=== PATIENT | female | born 1940 | race Caucasian/White ===

== ENCOUNTER → 2017-03-07 | Outpatient (CLI) | payer OTHER ==
[~2017-03-07] MED LIST: ANAS1TAB19 PO; ASPI325T45 PO; CALC500C70 PO; LEVO100T7 PO; LORA-741 PO; MULT-506 PO; OMEP20TA PO
[2017-03-07 13:59] VITALS: BP 165/77; PULSE 77; TEMP 36.9; O2SAT 96
--- NOTE | 2017-03-07 15:17 | Radiation Oncology Follow-Up ---
Radiation Oncology Follow-Up Date of Visit Mar 07, 2017. (La Nena Ramos PA-C) Reason For Visit Annual follow-up (La Nena Ramos PA-C) Radiation Completion Date finished 07-20-2015 (La Nena Ramos PA-C) Diagnosis (1) Breast cancer Status: Resolved Onset Date: 02/03/2015 Stage: lll (A) Permanent Comment: DIAGNOSIS: 1. Left breast, invasive ductal carcinoma, grade 2, ER/NH positive, Her2-elie negative, [id number], stage IIIA Abnormal left breast mammogram Status post biopsy 02/03/2015 revealing invasive ductal carcinoma with lobular features Estrogen receptor positive, progesterone receptor positive, HER-2/elie negative Initial lumpectomy with SLN 03/08/2015 followed by modified radical mastectomy 04/12/2015 Status post completion of radiation therapy to the Left chest wall, supraclavicular area, and axilla completed 07/20/2015 received 5940 cGy 2. Hairy cell leukemia status post chemotherapy Last Edited By: La Nena Ramos on Sep 01, 2015 13:08 (La Nena Ramos PA-C) History of Present Illness Ms. Flynn is a 76-year-old female who presents with previous diagnosis of hairy cell leukemia in remission status post cladribine (Nguyen). She recently presented with an abnormal mammogram completed on 01/19/2015 which showed 2 asymmetries concerning for malignancy which was followed by spot compression which confirmed the abnormality. She did have a repeat diagnostic mammogram on 01/31/2015 which did show focal asymmetry in the left breast so the score was BI-RADS 4 and a biopsy was recommended. She did have a biopsy on 02/03/2015 which revealed invasive ductal carcinoma with lobular features in the tumor was estrogen receptor positive and progesterone receptor positive and HER-2 negative. She did have an MR scan of bilateral breasts on 02/22/2015 which revealed a mass measuring 5.5 cm in the left breast but no lymphadenopathy. She then went on to have a lumpectomy and sentinel lymph node biopsy on 03/08/2015 which revealed invasive ductal carcinoma, 7.5 cm, unifocal, LVSI present, grade 2, positive margin. 2 out of the 3 sentinel lymph nodes were positive for breast carcinoma as well. Due to the positive margins, the patient went on to have a mastectomy and completion axillary lymph node dissection which was completed on 04/12/2015 which revealed residual carcinoma in the left breast as well as 01/09 lymph nodes positive for breast cancer. The patient was seen by Dr. Nguyen and they did have a discussion for consideration of systemic therapy. After their discussion, the patient has elected for anti-hormonal therapy only. We are now seeing the patient in consultation for discussion of post vasectomy radiation therapy. Currently the patient is doing relatively well. Of note she did have her seroma drained by Dr. Plata today in the did remove roughly 70 mL of fluid. Otherwise she has no complaints and is tolerated surgery well. Her energy appetite and weight are stable. She has no other complaints. She will return to our office and underwent conventional radiation therapy. (La Nena Ramos PA-C) Interim History She has noted no changes of the chest wall over this past year. She is found no masses. She has noted no changes of the axilla. She has no swelling of her arm. She has some mild lateral discomfort. She states she occasionally takes an aspirin for the discomfort. She does is approximately once or twice a week. She isn't discomfort a pain level of 3. We reviewed previous mammography for the right breast. Last mammogram was 01/20/2016. She continues on Arimidex and denies side effects. (La Nena Ramos PA-C) Allergies Coded Allergies: No Known Allergies (Unverified , 04/12/15) Home Medications Scheduled Anastrozole (Arimidex), 1 TAB PO DAILY Aspirin (Aspirin), 325 MG PO QAM Calcium/Vitamin D (Os-[place] 500 Plus D), 1 TAB PO BID Levothyroxine Sodium (Levothyroxine Sodium), 1 TAB PO QAM Lorazepam (Ativan), 0.5 MG PO BID Multivitamin (Multivitamin), 1 TAB PO QAM Omeprazole (Omeprazole), 1 TAB PO QAM Review of Systems Gastrointestinal: Symptoms: WNL Oral: Symptoms: No Problems Respiratory: Symptoms: WNL Other Respiratory: occ dry cough Urinary: Symptoms: Nocturia Comments: nocturia times 1 Skin: Symptoms: No Problems Other Skin Symptoms: has dry patches on face, appt with spine specialist Breast: Right Upper Arm Measurement: 28.0 Right Mid Arm Measurement: 22.5 Right Wrist Measurement: 15.0 Left Upper Arm Measurement: 30.4 Left Mid Arm Measurement: 22.0 Left Wrist Measurement: 15.5 Arm Dominence: Right Cosmetic Comments: N/ A (La Nena Ramos PA-C) Physical Exam Vital Signs Date Time Temp Pulse Resp B/P (MAP) Pulse Ox O2 Delivery O2 Flow Rate FiO2 03/07/17 13:59 36.9 77 16 165/77 96 Pain: Pain Onset: last year Pain Duration: comes and goes Side: Left Patient Pain Scale: 0 - 10 Initial Pain Intensity: 3.0 Pain Description: Dull Additional Comments: gets worse at times Fatigue: None General Appearance: no apparent distress Eyes: normal inspection, EOMI ENT: normal ENT inspection, hearing grossly normal Neck: no adenopathy, thyroid normal Respiratory/Chest: lungs clear, no respiratory distress, no accessory muscle use Breast: Breast examination reveals status post mastectomy on the left. There are no masses of the chest wall. There are no areas of tenderness. There is slight telangiectasia. There is no axillary adenopathy. She has no hyperpigmentation. Using the [place] score cosmesis she has a good outcome. Right breast showed no masses or tenderness and no axillary adenopathy Cardiovascular: regular rate, rhythm, no gallop, no murmur Extremities: no pedal edema Neurologic/Psychiatric: no motor/sensory deficits, alert, normal mood/affect Skin: warm/dry (La Nena Ramos PA-C) Assessment & Plan Plan: The patient was also seen and examined by Dr. Larry. The patient was scheduled for yearly screening mammogram of the right breast. He continues on Arimidex. Continue follow-up with medical oncology and her primary care physician. We asked her to return to our office in 1 year. She may call if she has any questions or concerns in the interim. (La Nena Ramos PA-C) I agree with note created by La Nena Ramos PA-C. I reviewed the patient's chart and information with her. I have examined and evaluated the patient. I reviewed relevant clinical information and answered the patient's and/or family' s questions. (Veeral. Larry MD) Total Time In Follow-Up I spent 20 minutes speaking to the patient and performing examination. I spent 15 minutes reviewing information and complaining this note. (La Nena Ramos PA-C) I spent 15 minutes examining and counseling the patient. (Veeral. Laryr MD) Copy To Wu Hawkins D.O.; Enmanuel Nguyen M.D. Problem Qualifiers (1) Breast cancer: Breast location: central portion of breast Estrogen receptor status: positive Patient sex: female Laterality: left Qualified Codes: C50.112 - Malignant neoplasm of central portion of left female breast; Z17.0 - Estrogen receptor positive status [ER+]
== END | disposition home or self-care (01) ==
LOC: C.ONC 12:23
PROVIDERS: ATTEND Physician Assistant Medical
DX: Z08 Encounter for follow-up examination after completed treatment for malignant neoplasm (principal); Z92.3 Personal history of irradiation; Z85.3 Personal history of malignant neoplasm of breast

== ENCOUNTER 2019-05-02 10:50 | Observation (INO) ==
[2019-05-02] MEDS ORDERED: NITROGLYCERIN 2% OINTMENT 30GM TUBE EXT STA (11:12)
[2019-05-02 11:34] LABS: Hematocrit (blood only) 41.9 % (37-47); Hemoglobin 14.4 g/dL (12.0-16.0); Immature Granulocytes % (auto) 1.5 %; Lymphocytes # (auto) 0.75 K/uL (1.2-3.4); Mean Corpuscular Hgb Conc 34.4 g/dL (32-36); Mean Corpuscular Volume 96.3 fL (80-100); Mean Platelet Volume 10.4 fL (7.4-10.4); Monocytes # (auto) 0.45 K/uL (0.11-0.59); Monocytes % (auto) 6.6 %; Neutrophils # (auto) 5.51 K/uL (1.4-6.5); Neutrophils % (auto) 80.9 %; Platelet Count 120 K/uL (130-400); RDW Standard Deviation 45.4 fL (36.4-46.3); Red Blood Count 4.35 M/uL (4.2-5.4); White Blood Count 6.81 K/uL (4.8-10.8)
--- NOTE | 2019-05-02 11:46 | XRay Report ---
SINGLE VIEW CHEST CLINICAL HISTORY: Atypical chest pain. FINDINGS: An AP, portable, upright chest radiograph is compared to study dated 05/01/2019. The examinat ion is degraded by portable technique and patient rotation. The cardiomediastinal silhouette is unr emarkable noting atherosclerotic calcification of the thoracic aorta. The lungs and pleural spaces ar e clear. No pneumothorax is seen. The skeletal structures are osteopenic. The bony thorax is grossly intact. IMPRESSION: No active disease in the chest and no significant change from yesterday. Electronically signed by: Tank Shipman M.D. 05/02/2019 11:44 AM
[2019-05-02 11:51] LABS: BUN Creatinine Ratio 19.8 (10-20); Calcium 9.1 mg/dl (8.5-10.1); Creatinine Clr Calc Pharmacy 40.5 ml/min; Est GFR (African American) 59.7; Est GFR (Non-African American) 51.5; Potassium 3.7 mmol/L (3.5-5.1)
[2019-05-02 11:54] LABS: Bilirubin,Total 0.6 mg/dl (0.2-1); Globulin 3.9 gm/dl (2.5-4.0); Total Protein 7.9 gm/dl (6.4-8.2)
[2019-05-02] MEDS ORDERED: ALUMINUM/MAGNESIUM SUSP 30 ML UDC PO PRN (13:24)
[2019-05-02] MEDS ORDERED: POLYETHYLENE (MIRALAX) 17 GM PACK PO PRN (13:24)
[2019-05-02] MEDS ORDERED: ACETAMINOPHEN 325 MG TAB PO PRN (13:24)
[2019-05-02] MEDS ORDERED: ONDANSETRON INJ 2 MG/ML 2 ML VIAL IV PRN (13:24)
[2019-05-02] MEDS ORDERED: MAGNESIUM HYDROXIDE SUSP 30 ML UDC PO PRN (13:24)
[2019-05-02] MEDS ORDERED: NITROGLYCERIN SL 0.4 MG/TAB TAB SL PRN (13:24)
[2019-05-02 13:54] LABS: Prothrombin Time 10.2 Seconds (9.0-12.0)
--- NOTE | 2019-05-02 14:10 | History & Physical Report ---
Date of Service May 02, 2019 Assessment & Plan (1) Chest pain: (2) CATALAN (dyspnea on exertion): This is an 79-year-old female who has a significant PMH of HTN, hypothyroidism, history of CVA without residual deficit, history of hairy cell leukemia status post 1 cycle cladribine in 2013, thrombocytopenia, history of stage IIIa left breast cancer status post mastectomy and lymph node dissection who presents to [facility] ED secondary to chest pain and dyspnea on exertion times 2 years. 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 if progression of AV sclerosis vs pulm HTN vs wall motion abnormality a1c, lipid panel in am. trend labs HH diet consult cardiology for further assessment (3) HTN (hypertension): Blood pressure stable on amlodipine (4) Hypothyroidism: Continue levothyroxine (5) Breast cancer: Continue Arimidex Status post left mastectomy with lymph node dissection in 2014 (6) History of CVA (cerebrovascular accident): no residual deficit on ASA (7) DVT prophylaxis: SCD/TEDS Disposition: D/C to home when able Follow up: PCP Dr. Hawkins upon discharge Patient was seen and examined in collaboration with Dr. Burns, please see addendum History of Present Illness Chief Complaint: Chest pain x 2 years. Primary Care Provider: Wu Hawkins, This is an 79-year-old female who has a significant PMH of HTN, hypothyroidism, history of CVA without residual deficit, history of hairy cell leukemia status post 1 cycle cladribine in 2013, thrombocytopenia, history of stage IIIa left breast cancer status post mastectomy and lymph node dissection who presents to [facility] ED secondary to chest pain and dyspnea on exertion times 2 years. Patient presented to ED last evening for similar symptoms but opted to discharge home secondary to needing to take care of cat. She complains of left-sided chest pain, nonradiating, rated as 6/10 when present, currently 0/10, described as ache, made worse with exertion, improved with rest. Symptoms can take anywhere from minutes to 2 hours to resolve. She also elicits to having dyspnea on exertion for the past 2 years, "but I still use the stairs in my apartment complex." She denies pain being worse with inspiration, movement. She has not tried anything [id number] for relief. She has history of left breast mastectomy and has had dull aching chest pain since her mastectomy, but feels this may be different. Further she complains of occasional orthopnea, but denies PND, edema or weight gain. She denies any other recent illness, fever, chills, sweats, lightheadedness, dizziness, syncope, palpitations, n/v/d, abdominal pain, change in bowel or urinary habits. Pt lives [facility], takes stairs, has cane but does not use it. Hx of remote smoking 60 years ago, quit after CVA. Denies hx of CAD or [place]. +FH of premature CAD in family. Allergies Allergy/AdvReac Type Severity Reaction Status Date / Time No Known Allergies Allergy Unverified 05/02/19 11:41 Home Medications Home Medications Medication Instructions Recorded Confirmed Type amlodipine 5 mg PO QAM 05/01/19 05/02/19 History anastrozole 1 mg PO QAM 05/01/19 05/02/19 History levothyroxine 100 mcg PO QAM 05/01/19 05/02/19 History multivitamin 1 tab PO QAM 05/01/19 05/02/19 History omeprazole 20 mg PO DAILY PRN 05/01/19 05/02/19 History sertraline 25 mg PO QAM 05/01/19 05/02/19 History aspirin [Aspirin Low Dose] 81 mg PO QAM 05/02/19 05/02/19 History Past Med/Surg History Medical History Thrombocytopenia (Chronic) Hypothyroidism (Chronic) HTN (hypertension) (Chronic) Osteoporosis (Chronic) History of CVA (cerebrovascular accident) (Chronic) Anxiety (Chronic) Breast cancer (Resolved 02/03/15) " DIAGNOSIS: 1. Left breast, invasive ductal carcinoma, grade 2, ER/MD positive, Her2-elie negative, [id number], stage IIIA Abnormal left breast mammogram Status post biopsy 02/03/2015 revealing invasive ductal carcinoma with lobular features Estrogen receptor positive, progesterone receptor positive, HER-2/elie negative Initial lumpectomy with SLN 03/08/2015 followed by modified radical mastectomy 04/12/2015 Status post completion of radiation therapy to the Left chest wall, supraclavicular area, and axilla completed 07/20/2015 received 5940 cGy 2. Hairy cell leukemia status post chemotherapy in 2013 Surgical History History of colonoscopy (Chronic) S/P left mastectomy (Chronic) With axillary lymph node dissection Family History Father Stroke Mother Stroke Brother Myocardial infarction Other Hypertension Social History Preferred Language: Japanese Communication Ability: Effective News Director Required: No Beliefs That Will Affect Care: None Current Living Situation: Alone Current Living Situation Comment: apartment Feels Safe at Home: Yes Safety Concerns: Feels Safe At This Time Smoking Status: Former smoker Do You Dip or Chew Tobacco: No ; Smoking End Date: at ~ age 33 ; Second Hand Exposure: No ; Hx Alcohol Use: No Hx Substance Use: No Review of Systems Review of Systems: As noted per HPI, 10 systems reviewed and negative unless n oted above. Physical Exam Physical Exam: Gen: WD/WN, elderly, F, NAD, sitting up in bed, pleasant, conversing easily Head: Normocephalic, Atraumatic Eyes: Sclera normal, no conjunctival injection, PERRLA, EOMI ENT: Gross hearing intact, normal pharynx, mucous membranes moist Neck: supple, no adenopathy, No JVD, no bruit, Resp: Clear to auscultation b/l, no wheeze, rales, rhonchi. 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 Extremities: No edema bilaterally Skin: warm, moist, no rash, negative turgor, cap refill < 2sec Neuro: Alert and oriented x 3, speech normal, good mood/affect, cran nerve 2-12 intact grossly : deferred Results & Data Vital Signs (Past 12 Hours) Vital Signs Temp Pulse Resp BP Pulse Ox 05/02/19 13:28 81 05/02/19 13:01 72 20 105/59 L 95 05/02/19 12:30 72 20 105/59 L 95 05/02/19 12:00 75 26 H 120/66 95 05/02/19 11:30 77 19 148/95 H 95 05/02/19 11:20 79 27 H 132/56 L 93 05/02/19 11:14 91 H 20 93 05/02/19 10:55 36.9 C 91 H 20 163/85 H 93 Laboratory Results Short CBC 05/02/19 Range/Units 11:15 WBC 6.81 (4.8-10.8) K/uL Hgb 14.4 (12.0-16.0) g/dL Hct 41.9 (37-47) % Plt Count 120 L (130-400) K/uL BMP 05/02/19 11:15 Sodium 144 Potassium 3.7 Chloride 109 H Carbon Dioxide 29 BUN 20 H Creatinine 1.02 Glucose 102 H Calcium 9.1 Liver Function 05/02/19 Range/Units 11:15 Total Bilirubin 0.6 (0.2-1) mg/dl AST 13 L (15-37) U/L ALT 20 (12-78) U/L Alkaline Phosphatase 74 (45-117) U/L Albumin 4.0 (3.4-5.0) gm/dl Diagnostic Findings CXR: IMPRESSION: No active disease in the chest and no significant change from yesterday. Medications Administered Discontinued Medications Nitroglycerin (Nitro-Bid 2%) 1 inch EXT NOW STA Stop: 05/02/19 11:13 Last Admin: 05/02/19 11:26 Dose: 1 inch Documented by: [id number] ECG Rate (beats per minute): 79 Rhythm: normal sinus Findings: + PVC Change: the following changes noted Code Status & VTE Plan Code Status Full Code VTE Prophylaxis Plan VTE Prophylaxis will be ordered: Yes Supervising Physician Co-Signing Physician Notes I have seen and examined the patient and have discussed the case with the provider above. I agree with the assessment and plan as stated. 79 yo F admits to two years of chest pain and CATALAN, but denies ever speaking to a physician r egarding this. She is s/p chemo for breast cancer. She does report walking up and down stairs regularly without issue but can get chest pain and SOB with this "sometimes." The patient reports coming in last night and today because of the "intensity" of the pain, making it different from other times, and a friend encouraged her to come back to the ER this morning. It is apparent she has some memory loss and I'm not sure how much of the story or report here is accurate. For example, she states she hasn't seen her PCP in 5 years, but the record reflects her seeing him in January. She lives alone with her cat. Chest pain resolved with nitro. Workup negative last night and this morning but with reoccurrence of chest pain and new symptoms this morning, she is being observed for ACS rule out here. Trop currently negative and EKG reveals sinus rhythm with no evidence of active ischemia. My exam is consistent with the providers findings above. Doubt stress testing available for her over this weekend, but appreciate Cardiology opinion on risk stratification and plan going home. DO Grant
[2019-05-02 14:57] LABS: Troponin I < 0.015 ng/ml (0-0.045)
[2019-05-02 15:10] LABS: T4 Free Thyroxine 1.81 ng/dl (0.8-1.6)
[2019-05-02] MEDS ORDERED: ENOXAPARIN INJ 30 MG/0.3 ML SYR SQ SCH (16:00)
--- NOTE | 2019-05-02 16:26 | Emergency Department Note ---
Entered by Mireya Maynard acting as a scribe for Álvaro Dia MD History of Present Illness General Chief complaint: Chest Pain Stated complaint: HEART PROBLEMS//DIZZINESS Source: patient Limitations: no limitations History of Present Illness Provider complaint: left-sided chest pain Onset (ago): hour(s) 1 Location: chest and left Pain Consistency: + other (episode ) Maximum Pain Intensity: 5 Quality: + other (pressure ) Exacerbated By: + movement Associated symptoms: + cough, + diaphoresis, + shortness of breath and + other (abdominal pain ) The patient is an 79 year old female who presents to the ED with complaints of an episode of left-sided chest pressure that began 1 hour ago. The patient states she has had occasional chest pain for several months now. She reports that she was seen in the ED yesterday for chest pain and shortness of breath. The patient states that she left against medical advice because she did not want to spend the night in the ED. The patient states that she returned to the ED today because the chest pain frightened her. The patient states that she occasionally gets short of breath and sweaty when she experiences chest pain. The patient states that the chest pain gets worse with exertion, such as walking up steps. The patient states that she occasionally has a cough and abdominal pain but not currently. She reports that she has a history of high blood pressure. The patient reports that she has a history of breast cancer and hairy cell leukemia. She states that she had a mastectomy 5 years ago and received radiation therapy. The patient denies fevers and vomiting. Home Medications Home Medications Medication Instructions Recorded Confirmed Type amlodipine 5 mg PO QAM 05/01/19 05/02/19 History anastrozole 1 mg PO QAM 05/01/19 05/02/19 History levothyroxine 100 mcg PO QAM 05/01/19 05/02/19 History multivitamin 1 tab PO QAM 05/01/19 05/02/19 History omeprazole 20 mg PO DAILY PRN 05/01/19 05/02/19 History sertraline 25 mg PO QAM 05/01/19 05/02/19 History aspirin [Aspirin Low Dose] 81 mg PO QAM 05/02/19 05/02/19 History Allergies Allergy/AdvReac Type Severity Reaction Status Date / Time No Known Allergies Allergy Unverified 05/02/19 11:41 Past Med/Surg History Medical History Thrombocytopenia (Chronic) Hypothyroidism (Chronic) HTN (hypertension) (Chronic) Osteoporosis (Chronic) History of CVA (cerebrovascular accident) (Chronic) Anxiety (Chronic) Breast cancer (Resolved 02/03/15) " DIAGNOSIS: 1. Left breast, invasive ductal carcinoma, grade 2, ER/TX positive, Her2-elie negative, [id number], stage IIIA Abnormal left breast mammogram Status post biopsy 02/03/2015 revealing invasive ductal carcinoma with lobular features Estrogen receptor positive, progesterone receptor positive, HER-2/elie negative Initial lumpectomy with SLN 03/08/2015 followed by modified radical mastectomy 04/12/2015 Status post completion of radiation therapy to the Left chest wall, supraclavicular area, and axilla completed 07/20/2015 received 5940 cGy 2. Hairy cell leukemia status post chemotherapy in 2013 Surgical History History of colonoscopy (Chronic) S/P left mastectomy (Chronic) With axillary lymph node dissection Family History Father Stroke Mother Stroke Brother Myocardial infarction Other Hypertension Social History Preferred Language: Chinese Communication Ability: Effective Collection Advisor Required: No Beliefs That Will Affect Care: None Current Living Situation: Alone Current Living Situation Comment: apartment Feels Safe at Home: Yes Safety Concerns: Feels Safe At This Time Smoking Status: Former smoker Do You Dip or Chew Tobacco: No ; Smoking End Date: at ~ age 33 ; Second Hand Exposure: No ; Hx Alcohol Use: No Hx Substance Use: No Review of Systems See HPI for pertinent positives & negatives. and A total of 10 systems reviewed and were otherwise negative Physical Exam Vital Signs Vital Signs - 24 hr 05/02/19 10:55 05/02/19 11:07 05/02/19 11:14 Temperature 36.9 C Temperature Source Oral Sepsis Recent Fever Within 48 Hours No Sepsis Action Taken by Nursing No Action Required Pulse Rate 91 H 91 H Pulse Rate from SpO2 Sensor Pulse Rhythm Regular Respiratory Rate 20 20 Respiratory Effort / Characteristics Non-Labored Spontaneous Non-Labored Spontaneous Respiratory Depth Normal Normal Blood Pressure 163/85 H Blood Pressure Mean 111 Blood Pressure Position Sitting Pulse Oximetry 93 93 Oxygen Delivery Method Room Air Room Air Room Air 05/02/19 11:20 05/02/19 11:30 05/02/19 12:00 Temperature Temperature Source Sepsis Recent Fever Within 48 Hours Sepsis Action Taken by Nursing Pulse Rate 79 77 75 Pulse Rate from SpO2 Sensor 78 78 74 Pulse Rhythm Respiratory Rate 27 H 19 26 H Respiratory Effort / Characteristics Respiratory Depth Blood Pressure 132/56 L 148/95 H 120/66 Blood Pressure Mean 81 112 84 Blood Pressure Position Pulse Oximetry 93 95 95 Oxygen Delivery Method Room Air Room Air Room Air Constitutional: Vital signs reviewed. Eyes: Pupils are equal round reactive to light. Conjunctiva are noninjected. ENT: Pharynx is clear without erythema or exudate. Mucous membranes are moist. Neck supple without meningeal signs. Respiratory: Clear to auscultation bilaterally. Breath sounds are equal bilaterally. Cardiovascular: Regular rate and rhythm. No rubs or gallops. GI: Soft, nondistended and nontender. Bowel sounds are present. Musculoskeletal: No peripheral edema. No lower extremity tenderness. Left mastectomy. Integumentary: No cyanosis. Neurological: The patient is awake and alert. No focal deficits. Psychiatric: Normal affect. Course 1110: Past medical records reviewed. The patient was evaluated in room C5. A complete history and physical exam was performed. 1150: I discussed the test results with the patient at this time. The patient reports that the chest pain is now resolved. 1156: I paged the [facility] to review the patients case. 1208: I discussed the patients case with Aleida Hernandez PA-C. She informed me that Dr. Burns, [facility], agreed to evaluate the patient for further management. Consultations Consultation #1: I discussed the patients case with Aleida Hernandez PA-C. She informed me that Dr. Burns, [facility], agreed to evaluate the patient for further management. Time: 12:08 Administered Medications Discontinued Medications Nitroglycerin (Nitro-Bid 2%) 1 inch EXT NOW STA Stop: 05/02/19 11:13 Last Admin: 05/02/19 11:26 Dose: 1 inch Documented by: [id number] Medical Decision Making Differential Diagnosis Differential diagnoses include but are not limited to unstable angina, VT, pleurisy, GERD, pneumonia. Medical Records Attestation: I reviewed the patient's medical records. I did perform a limited focused review of portions of the patient's old chart on the electronic medical record. The patient has had no recent pertinent visits to this hospital. Home Medications Current Medication List: was personally reviewed by me Laboratory Data Attestation: I reviewed the patient's lab results. Result diagrams: 05/02/19 11:15 05/02/19 11:15 Lab Results 05/02/19 05/02/19 05/02/19 Range/Units 11:15 11:15 11:15 WBC 6.81 (4.8-10.8) K/uL RBC 4.35 (4.2-5.4) M/uL Hgb 14.4 (12.0-16.0) g/dL Hct 41.9 (37-47) % MCV 96.3 (80-100) fL MCH 33.1 (25-34) pg MCHC 34.4 (32-36) g/dL RDW Std Deviation 45.4 (36.4-46.3) fL RDW Coeff of Lisa 13.0 (11.5-14.5) % Plt Count 120 L (130-400) K/uL MPV 10.4 (7.4-10.4) fL Immature Gran % (Auto) 1.5 % Neut % (Auto) 80.9 % Lymph % (Auto) 11.0 % [place] % (Auto) 6.6 % Eos % (Auto) 0.0 % Baso % (Auto) 0.0 % Immature Gran # (Auto) 0.10 H (0.00-0.02) K/uL Neut # (Auto) 5.51 (1.4-6.5) K/uL Lymph # (Auto) 0.75 L (1.2-3.4) K/uL [place] # (Auto) 0.45 (0.11-0.59) K/uL Eos # (Auto) 0.00 (0-0.5) K/uL Baso # (Auto) 0.00 (0-0.2) K/uL PT (9.0-12.0) Seconds INR (0.9-1.1) Sodium 144 (136-145) mmol/L Potassium 3.7 (3.5-5.1) mmol/L Chloride 109 H (98-107) mmol/L Carbon Dioxide 29 (21-32) mmol/L Anion Gap 6.0 (3-11) BUN 20 H (7-18) mg/dl Creatinine 1.02 (0.6-1.2) mg/dl Est Cr Clr Drug Dosing 40.5 ml/min Est GFR ( Amer) 59.7 Est GFR (Non-Af Amer) 51.5 BUN/Creatinine Ratio 19.8 (10-20) Glucose 102 H (70-99) mg/dl Calcium 9.1 (8.5-10.1) mg/dl Total Bilirubin 0.6 (0.2-1) mg/dl AST 13 L (15-37) U/L ALT 20 (12-78) U/L Alkaline Phosphatase 74 (45-117) U/L POC Troponin I (0-0.045) ng/ml Troponin I < 0.015 (0-0.045) ng/ml Total Protein 7.9 (6.4-8.2) gm/dl Albumin 4.0 (3.4-5.0) gm/dl Globulin 3.9 (2.5-4.0) gm/dl Albumin/Globulin Ratio 1.0 (0.9-2) Lipase 136 (73-393) U/L TSH 0.036 L (0.300-4.500) uIu/ml Free T4 1.81 H (0.8-1.6) ng/dl 05/02/19 05/02/19 Range/Units 11:15 11:30 WBC (4.8-10.8) K/uL RBC (4.2-5.4) M/uL Hgb (12.0-16.0) g/dL Hct (37-47) % MCV (80-100) fL MCH (25-34) pg MCHC (32-36) g/dL RDW Std Deviation (36.4-46.3) fL RDW Coeff of Lisa (11.5-14.5) % Plt Count (130-400) K/uL MPV (7.4-10.4) fL Immature Gran % (Auto) % Neut % (Auto) % Lymph % (Auto) % [place] % (Auto) % Eos % (Auto) % Baso % (Auto) % Immature Gran # (Auto) (0.00-0.02) K/uL Neut # (Auto) (1.4-6.5) K/uL Lymph # (Auto) (1.2-3.4) K/uL [place] # (Auto) (0.11-0.59) K/uL Eos # (Auto) (0-0.5) K/uL Baso # (Auto) (0-0.2) K/uL PT 10.2 (9.0-12.0) Seconds INR 1.0 (0.9-1.1) Sodium (136-145) mmol/L Potassium (3.5-5.1) mmol/L Chloride (98-107) mmol/L Carbon Dioxide (21-32) mmol/L Anion Gap (3-11) BUN (7-18) mg/dl Creatinine (0.6-1.2) mg/dl Est Cr Clr Drug Dosing ml/min Est GFR ( Amer) Est GFR (Non-Af Amer) BUN/Creatinine Ratio (10-20) Glucose (70-99) mg/dl Calcium (8.5-10.1) mg/dl Total Bilirubin (0.2-1) mg/dl AST (15-37) U/L ALT (12-78) U/L Alkaline Phosphatase (45-117) U/L POC Troponin I < 0.03 (0-0.045) ng/ml Troponin I (0-0.045) ng/ml Total Protein (6.4-8.2) gm/dl Albumin (3.4-5.0) gm/dl Globulin (2.5-4.0) gm/dl Albumin/Globulin Ratio (0.9-2) Lipase (73-393) U/L TSH (0.300-4.500) uIu/ml Free T4 (0.8-1.6) ng/dl Imaging Data Radiologist's Impression: Radiology results as stated below per my review and the radiologist's interpretation: SINGLE VIEW CHEST CLINICAL HISTORY: Atypical chest pain. FINDINGS: An AP, portable, upright chest radiograph is compared to study dated 05/01/2019. The examination is degraded by portable technique and patient rotation. The cardiomediastinal silhouette is unremarkable noting atherosclerotic calcification of the thoracic aorta. The lungs and pleural spaces are clear. No pneumothorax is seen. The skeletal structures are osteopenic. The bony thorax is grossly intact. IMPRESSION: No active disease in the chest and no significant change from yesterday. Electronically signed by: Tank Shipman M.D. 05/02/2019 11:44 AM ECG Data Attestation: I personally reviewed and interpreted this ECG as follows: Indication: chest pain Rate (beats per minute): 79 Rhythm: sinus rhythm Findings: + PVC and + ST elevation (slight ST elevation only in lead 2 ) Comparison ECG Date: from (05/01/2019) Change: no significant change Blood Pressure Blood Pressure Findings: Normal blood pressure Blood Pressure Disposition: did not require urgent referral MDM Narrative I did evaluate the patient as noted above. The patient is presenting with exertional chest pain. She was evaluated here yesterday and left AMA. She is back because she is having continued chest pain. IV access was established. The patient was placed on a continuous cardiac cath technician. I did treat her with Nitropaste 1 inch to the anterior chest wall. I did order and personally review the patient's 12-lead EKG as described above. She has slight elevation that V2 but otherwise does not show any ST elevations. No ST depressions are noted. Similar findings are found on EKG yesterday. I did order and personally reviewed the images of the patient's chest x-ray as described above. Chest x- ray is unremarkable. I did order and review the patient's blood work as noted in the electronic medical record. Troponin is negative. Platelet count is 120. She is not anemic. I did reassess the patient. She states her chest pain is now completely resolved. I did discuss the test results with her and recommended hospitalization. I did discuss case with hospitalist and manager of case. Impression & Plan Exertional chest pain, Thrombocytopenia Discharge Plan Visit Data *Final* Discharge Date/Time: 05/02/19 13:01 Chief Complaint: Chest Pain Stated Complaint: HEART PROBLEMS//DIZZINESS ED Provider: Álvaro Dia Discharge Problem: Exertional chest pain, Thrombocytopenia Patient Disposition: Admitted As Inpatient Discharge Instructions Interventions: ED Discharge Assessment Last Done: 05/02/19 13:01 The scribe's documentation has been prepared under my direction and personally reviewed by me in its entirety. I confirm that the note above accurately reflects all work, treatment, procedures, and medical decision making performed by me.
[2019-05-02] MEDS ORDERED: ASPIRIN 325 MG ECTAB PO ONE (18:35)
[2019-05-03 02:25] LABS: Chol HDL Ratio 3; Cholesterol 164 mg/dl (0-200); HDL Cholesterol 52 mg/dl; LDL Cholesterol Calculated 90 mg/dl; Triglycerides 109 mg/dl (0-150); VLDL Cholesterol 22 mg/dl
[2019-05-03] MEDS ORDERED: LEVOTHYROXINE SODIUM 100 MCG TABLET PO SCH (06:30)
[2019-05-03] MEDS ORDERED: SERTRALINE HCL 50 MG TABLET PO SCH (09:00)
[2019-05-03] MEDS ORDERED: MULTIVITAMIN TAB PO SCH (09:00)
[2019-05-03] MEDS ORDERED: ANASTROZOLE 1 MG TAB PO SCH (09:00)
[2019-05-03] MEDS ORDERED: ASPIRIN 81 MG ECTAB PO SCH (09:00)
[2019-05-03] MEDS ORDERED: AMLODIPINE BESYLATE 5 MG TAB PO SCH (09:00)
--- NOTE | 2019-05-03 12:25 | Cardiology Consultation ---
Date of Consultation May 03, 2019 Assessment & Plan (1) Chest pain: (2) History of CVA (cerebrovascular accident): (3) Thrombocytopenia: I would not recommend any additional cardiac testing for this patient. Her echocardiogram was unremarkable without wall motion abnormalities or other significant findings. I believe the patient may be discharged to outpatient follow-up. Her chest x-ray shows no bony lesions would suggest metastatic breast disease. I would treat her chest wall pain with acetaminophen on an as- needed basis and have follow-up with her electronic warfare technical Dr. Edwards. History of Present Illness Attending Physician: Maren Burns DO History of Present Illness This is an 79-year-old female with a history of breast carcinoma stage IIIa with previous mastectomy and hairy cell leukemia with thrombocytopenia. She was admitted with nonexertional chest pain which is actually reproducible by palpation across her chest. After admission her cardiac markers have been negative and her EKG is within normal limits. She has no significant past cardiac history. She is a non-smoker. She has a history of a previous CVA. No prior history of diabetes. Allergies Allergy/AdvReac Type Severity Reaction Status Date / Time No Known Allergies Allergy Unverified 05/02/19 11:41 Home Medications Home Medications Medication Instructions Recorded Confirmed Type amlodipine 5 mg PO QAM 05/01/19 05/02/19 History anastrozole 1 mg PO QAM 05/01/19 05/02/19 History levothyroxine 100 mcg PO QAM 05/01/19 05/02/19 History multivitamin 1 tab PO QAM 05/01/19 05/02/19 History omeprazole 20 mg PO DAILY PRN 05/01/19 05/02/19 History sertraline 25 mg PO QAM 05/01/19 05/02/19 History aspirin [Aspirin Low Dose] 81 mg PO QAM 05/02/19 05/02/19 History Patient History Medical History Thrombocytopenia (Chronic) Hypothyroidism (Chronic) HTN (hypertension) (Chronic) Osteoporosis (Chronic) History of CVA (cerebrovascular accident) (Chronic) Anxiety (Chronic) Breast cancer (Resolved 02/03/15) " DIAGNOSIS: 1. Left breast, invasive ductal carcinoma, grade 2, ER/IA positive, Her2-elie negative, [id number], stage IIIA Abnormal left breast mammogram Status post biopsy 02/03/2015 revealing invasive ductal carcinoma with lobular features Estrogen receptor positive, progesterone receptor positive, HER-2/elie negative Initial lumpectomy with SLN 03/08/2015 followed by modified radical mastectomy 04/12/2015 Status post completion of radiation therapy to the Left chest wall, supraclavicular area, and axilla completed 07/20/2015 received 5940 cGy 2. Hairy cell leukemia status post chemotherapy in 2013 Surgical History History of colonoscopy (Chronic) S/P left mastectomy (Chronic) With axillary lymph node dissection Family History Father Stroke Mother Stroke Brother Myocardial infarction Other Hypertension Social History Preferred Language: Panamanian Communication Ability: Effective Vamp Wetter Required: No Beliefs That Will Affect Care: None Current Living Situation: Alone Current Living Situation Comment: apartment Feels Safe at Home: Yes Safety Concerns: Feels Safe At This Time Smoking Status: Former smoker Do You Dip or Chew Tobacco: No ; Smoking End Date: at ~ age 33 ; Second Hand Exposure: No ; Hx Alcohol Use: No Hx Substance Use: No Review of Systems Review of Systems: All systems reviewed & are unremarkable except as noted in HPI & below Nothing additional Physical Exam Physical Exam: General: no acute distress and stated age Head: normocephalic, no masses, lesions, tenderness or abnormalities Eyes: conjunctiva are pink and non-injected, sclera clear Neck: supple, no adenopathy, no bruits, normal jugular venous pulse, no hepatojugular reflux Chest: Chest pain reproducible with palpation crossed precordium Lungs: clear to auscultation and percussion Cardiac Exam: - regular rate & rhythm, no murmurs gallops or rubs - normal S1, normal S2 Pulses: 2(+) throughout Abdomen: abdomen soft, non-tender, no abnormal masses and no hepatosplenomegaly Musculoskeletal: no gait disturbance, no joint inflammation, no deforming arthritis Extremities: no edema and no cyanosis Neuro: grossly normal exam Results & Data Vital Signs (Past 12 Hours) Vital Signs Temp Pulse Pulse Resp BP Pulse Ox 05/03/19 08:15 77 05/03/19 07:12 37.1 C 85 18 159/76 H 94 05/03/19 03:28 36.6 C 80 18 131/71 92 Laboratory Results Laboratory Results - last 24 hr 05/02/19 05/02/19 05/02/19 11:15 11:15 19:51 PT 10.2 INR 1.0 Estimat Average Glucose Hemoglobin A1c Troponin I < 0.015 < 0.015 Triglycerides Cholesterol LDL Cholesterol, Calc VLDL Cholesterol, Calc HDL Cholesterol Cholesterol/HDL Ratio TSH 0.036 L Free T4 1.81 H 05/03/19 05/03/19 05/03/19 01:53 01:53 01:53 PT INR Estimat Average Glucose Pending Hemoglobin A1c Pending Troponin I < 0.015 Triglycerides 109 Cholesterol 164 LDL Cholesterol, Calc 90 VLDL Cholesterol, Calc 22 HDL Cholesterol 52 Cholesterol/HDL Ratio 3 TSH Free T4 Medications Administered Current Inpatient Medications Acetaminophen (Tylenol) 650 mg PO Q4H PRN PRN Reason: Pain or Fever Stop: 06/01/19 13:23 Al Hydrox/Mg Hydrox/Simethicone (Maalox) 15 ml PO Q4H PRN PRN Reason: Dyspepsia Stop: 06/01/19 13:23 Amlodipine Besylate (Norvasc) 5 mg PO [facility] Stop: 06/02/19 08:59 Last Admin: 05/03/19 08:25 Dose: 5 mg Documented by: [facility] ([facility]) [facility] [place] [place]: 06/02/19 08:59 Last Admin: 05/03/19 08:25 Dose: 1 mg Documented by: Aspirin (Ecotrin Ectab) [facility] [place] [place]: 06/02/19 08:59 Last Admin: 05/03/19 08:25 Dose: 81 mg Documented by: Enoxaparin Sodium (Lovenox) 30 mg SQ Q24H [facility] Stop: 06/01/19 15:59 Last Admin: 05/02/19 17:48 Dose: 30 mg Documented by: Levothyroxine Sodium (Synthroid) [facility] Stop: 06/02/19 06:29 Last Admin: 05/03/19 05:01 Dose: 100 mcg Documented by: Magnesium Hydroxide (Milk Of Magnesia) 30 ml PO Q12H PRN PRN Reason: Constipation Stop: 06/01/19 13:23 Multivitamins (Multivitamin Tab) 1 tab PO QAM [facility] Stop: 06/02/19 08:59 Last Admin: 05/03/19 08:25 Dose: 1 tab Documented by: Nitroglycerin (Nitrostat) 0.4 mg SL UD PRN PRN Reason: Chest Pain Stop: 06/01/19 13:23 Ondansetron HCl (Zofran) 4 mg IV Q6H PRN PRN Reason: Nausea Stop: 06/01/19 13:23 Polyethylene Glycol (Miralax Powder Packet) 17 gm PO DAILY PRN PRN Reason: Constipation Stop: 06/01/19 13:23 Sertraline HCl (Zoloft) 25 mg PO QAM [facility] Stop: 06/02/19 08:59 Last Admin: 05/03/19 08:25 Dose: 25 mg Documented by:
[2019-05-03 12:53] VITALS: BP 159/94; TEMP 99; O2SAT 91
--- NOTE | 2019-05-03 13:28 | Discharge Summary ---
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 Patient presented to ED last evening for similar symptoms but opted to discharge home secondary to needing to take care of cat. She complains of left-sided chest pain, nonradiating, rated as 6/10 when present, currently 0/10, described as ache, made worse with exertion, improved with rest. Symptoms can take anywhere from minutes to 2 hours to resolve. She also elicits to having dyspnea on exertion for the past 2 years, "but I still use the stairs in my apartment complex." She denies pain being worse with inspiration, movement. She has not tried anything [id number] for relief. She has history of left breast mastectomy and has had dull aching chest pain since her mastectomy, but feels this may be different. Further she complains of occasional orthopnea, but denies PND, edema or weight gain. She denies any other recent illness, fever, chills, sweats, lightheadedness, dizziness, syncope, palpitations, n/v/d, abdominal pain, change in bowel or urinary habits. Pt lives in [facility], takes stairs, has cane but does not use it. Hx of remote smoking 60 years ago, quit after CVA. Denies hx of CAD or DE. +FH of premature CAD in family. Admission Exam Per Admitting Provider Gen: WD/WN, elderly, F, NAD, sitting up in bed, pleasant, conversing easily Head: Normocephalic, Atraumatic Eyes: Sclera normal, no conjunctival injection, PERRLA, EOMI ENT: Gross hearing intact, normal pharynx, mucous membranes moist Neck: supple, no adenopathy, No JVD, no bruit, Resp: Clear to auscultation b/l, no wheeze, rales, rhonchi. 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 Extremities: No edema bilaterally Skin: warm, moist, no rash, negative turgor, cap refill < 2sec Neuro: Alert and oriented x 3, speech normal, good mood/affect, cran nerve 2-12 intact grossly : deferred Principal Diagnosis Intercostal pain Discharge Data Allergies Allergy/AdvReac Type Severity Reaction Status Date / Time No Known Allergies Allergy Unverified 05/02/19 11:41 Consultations 05/02/19 12:12 ED Decision to Admit Stat 05/02/19 14:12 Consult Cardiology Routine Hospital Course (1) Intercostal pain: (2) CATALAN (dyspnea on exertion): (3) HTN (hypertension): (4) Hypothyroidism: (5) Breast cancer: (6) History of CVA (cerebrovascular accident): 79-year-old female with a history of CVA presented with chest pain for the second time in 24 hours. She was previously seen in the ER the night prior with negative work-up for ischemia, and decided to go home to take care of her animals. She returned the following morning at the prompting of her friend when her chest pain returned. She states she has chest pain intermittently for the past two years associated with dyspnea on exertion, but she states she has not told her doctor about this. She reported that the pain was more intense which was the reason for presentation. EKG remained unchanged with no ST segment elevation or depression. Nitropaste was administered with resolution of chest pain. She was admitted to the Hospitalist service on telemetry and serial troponin enzymes were trended and negative overnight. An echocardiogram was obtained and Cardiology was consulted. She remained chest pain-free overnight and there were no events on telemetry. Cardiology recommended against additional cardiac testing for this patient. Her echocardiogram was unremarkable without wall motion abnormalities or other significant findings. Her chest x-ray revealed no bony lesions that would suggest metastatic breast disease. Her chest wall pain, which was reproducible on palpation, was treated with acetaminophen and she was discharged in stable condition. At time of discharge she was asymptomatic. A [id number] examination was performed revealing an hemodynamically stable and afebrile patient in no acute distress. Cardiac exam revealed an S1/S2 heard without evidence of murmur, gallops, rubs. Lungs were clear to auscultation. Abdomen was soft nontender. She was ambulating and mentating at baseline and was tolerating p.o. She was discharged with close primary care follow-up recommended. Of note a TSH was performed while she was admitted and was found to be low. She is noted to be on Synthroid and was recommended to follow-up with her primary care doctor regarding this. Total Time Total Time Spent Total Time Spent (In Minutes): 60 Total Time Includes: Examination of the Patient, Discharge Planning, Medication Reconciliation and Communication With Other Providers Discharge Plan Discharge Items Patient Disposition: Home - Self-Care Reason For Visit: chest pain Discharge Diagnosis: atypical chest pain Condition: Good Discharge Goals: Improve disease control Activity: Resume your previous activity Non-emergency contact: Primary Care Provider Call non-emergency contact if: you have any medication questions, your symptoms worsen, your pain is not controlled and you have a fever Follow-up/Referrals: Wu Hawkins, [Primary Care Provider] - Diet: Heart Healthy Addtl Provider Instructions: Please take all medications as instructed on discharge list below. It is recommended that you follow-up with your primary care physician (PCP) within one week of discharge from the hospital to ensure your chest pain is controlled. There are no further cardiac tests that are indicated after the echocardiogram was normal here in the hospital. However, you may still have pain from another cause, and your PCP will help you with this moving forward. For now, it is recommended that you take the Tylenol as prescribed until you follow-up within 1-2 weeks. Additionally, your Synthroid looks like it might be dosed too high. This will need to be checked by your PCP on follow-up. It was a pleasure taking care of you! Please call if you have any questions or problems. You can reach a [facility] hospitalist on duty at 24 hours a day by calling [phone]. Take care of yourself. Maren Burns DO [facility] Hospitalist Prescriptions: New acetaminophen [Mapap (acetaminophen)] 325 mg Tablet 650 mg PO TID Qty: 90 RF: 0 Continued multivitamin Tablet 1 tab PO QAM RF: 0 anastrozole 1 mg tablet 1 mg PO QAM RF: 0 amlodipine 5 mg tablet 5 mg PO QAM RF: 0 levothyroxine 100 mcg tablet 100 mcg PO QAM RF: 0 sertraline 25 mg tablet 25 mg PO QAM RF: 0 omeprazole 20 mg Tablet,Delayed Release (Dr/Ec) 20 mg PO DAILY PRN (Reason: Heartburn) RF: 0 aspirin [Aspirin Low Dose] 81 mg Tablet,Delayed Release (Dr/Ec) 81 mg PO QAM RF: 0 Stand-Alone Forms: [facility] Discharge Orders: Discharge Order (Routine); Ordered 05/03/19 Ordered By: Maren Burns Admission Data Admit Date/Time: 05/02/19 12:25 Attending Provider: Maren Burns Admit Provider: Maren Burns Primary Care Provider: Wu Hawkins Other Providers: Amaury Mckinney ; Maren Burns Service: Telemetry Medical Other Interventions: Discharge Summary Assessment (RN) Last Done: 05/03/19 13:29 DC Date/Time DO NOT enter until pt leaves facility: 05/03/19 13:47
[2019-05-03 13:30] VITALS: PULSE 86
[2019-05-04 06:37] LABS: Estimated Average Glucose 105 mg/dl; Hemoglobin A1C 5.3 % (4.5-5.6)
== END 2019-05-03 13:47 | disposition home or self-care (01) ==
LOC: 2N 10:50 → ED 10:50 → 2N 13:01

== ENCOUNTER 2019-11-13 17:38 | Observation (INO) ==
--- NOTE | 2019-11-13 18:13 | Emergency Department Note ---
ED Provider Note NAME: JULIA MORA AGE: 79 SEX: F ARRIVES VIA: Ambulance INFORMANT: Patient ED PROVIDER(S): Irving Russ MD CHIEF COMPLAINT: Fall IMPRESSION: Closed head injury Elevated troponin Facial contusion AMS Fall PLAN: Disposition: Admitted Condition: [Good] Outpatient prescription management: [none] Referral: none MEDICAL DECISION MAKING: The patient presented to the emergency department due to a fall and confusion. She had CT imaging that was performed that did not reveal any acute process. R adiology recommended follow-up CT imaging. Her blood work and urinalysis was unremarkable except for mild elevation of total CK. The patient was hydrated. She was reassessed. She was doing well. The exact etiology of her fall and head injury is not known as she cannot remember and this was unwitnessed. She does have significant chronic changes on her brain imaging. Concussion or a unwitnessed seizure is a possibility. Further management will be necessary in the hospital. A consultation was made with internal medicine. [facility]. Triage Nursing notes reviewed and agree them. Additional history obtained from EMS Prior medical records reviewed , hx of CVA and Breast CA Vital Signs: reviewed and remarkable for no significant abnormalities, moderate hypertension Differential diagnosis: Infection, hypoglycemia, electrolyte abnormalities, overdose, toxicologic, cardiac sources, intracerebral event, neurologic, trauma, as well as other pathologies. ER treatment provided: NSS bolus and hydration Diagnostics interpreted by me: ECG: Rate:86 Rhythm:Sinus [place]:normal QRS:normal ST segements:no elevation or depression Other:PVCs Cardiac Monitoring: The patient was placed on continuous cardiac monitoring and observed. It revealed a normal sinus rhythm at 94 bpm, no evidence of dysr hythmia. Laboratory studies: [See below] an unremarkable CBC and chemistry panel. The patient does have a mild elevated troponin. The patient's urinalysis is unremarkable. Imaging studies: CT imaging of the head, neck and thoracic spine did not reveal any acute traumatic findings. Radiology recommended follow-up CT and MR imaging for the long and thoracic findings. This was relayed to internal medicine. Consultation(s): Consultation was made with of the [facility] service. The case was discussed and diagnostics were reviewed. He evaluated the patient in the emergency permit for additional treatment. HPI: 79 y/o Female arrives for evaluation of a fall. She was not seen for some time and neighbors went to check on her. She was found to be bleeding from the head and confused. Was oriented to person and place only. She does not remember falling. Denies recent illness. Lives alone. No medication given prehospital. Pt denies LOC, headache, fevers, chills, diaphoresis, visual changes, neck pain, chest pain, breathing difficulties, nausea, vomiting, abdo fernanda pain, back pain, melena, hematochezia, urinary symptoms, numbness, weakness, lymphadenopathy, rash, or other complaints. ROS: See above HPI for pertinent positives & negatives. A total of 10 systems reviewed and were otherwise negative. PAST MEDICAL HISTORY:CVA, Breast CA PAST SURGICAL HISTORY:mastectomy FAMILY HISTORY:[See Below] SOCIAL HISTORY:Lives alone HOME MEDICATIONS:[See Below] ALLERGIES:[See Below] VITALS:[See Below] PHYSICAL EXAMINATION: GENERAL: Awake, alert, mildly confused appearing, in no distress HENT: Normocephalic, large right forehead hematoma. Oropharynx unremarkable. EYES: Normal conjunctiva. Sclera non-icteric. NECK: Inspection normal. Non-tender. Supple. No nuchal rigidity. FROM. No masses. RESPIRATORY: Clear to auscultation. No wheezes. No rales. Normal respiratory effort. CARDIAC: Normal rate. Normal rhythm. No murmurs. No rubs. Extremities warm and well perfused. Pulses equal. No JVD. GI: Soft, non-distended. No tenderness to palpation. No rebound or guarding. No masses. RECTAL: Deferred. MUSCULOSKELETAL: Scattered contusions noted of the bilateral upper extremities. Chest examination reveals no tenderness. The back is symmetrical on inspection without obvious abnormality. There is mild upper midline thoracic tenderness. There is no CVA tenderness to palpation. No joint edema. LOWER EXTREMITIES: Calves are equal size bilaterally and non-tender. No edema. No discoloration. NEURO: Normal sensorium. No sensory or motor deficits noted. SKIN: No rash or jaundice noted. ED COURSE: Procedures: [none] [Critical Care:] I have personally spent greater than 32 minutes of critical care time in the direct management of this patient. This includes bedside care, interpretation of diagnostic studies, and testing, discussion with consultants, patient, and other required patient management activities. This 32 minutes is in excess of all separately billable procedures. Impression & Plan CHI (closed head injury), Elevated troponin I level, Fall, Altered mental status Past Med/Surg History Social History Preferred Language: Lebanese Communication Ability: Effective Computer Security Specialist Required: No Beliefs That Will Affect Care: None Current Living Situation: Alone Current Living Situation Comment: apartment Feels Safe at Home: Yes Smoking Status: Never smoker Second Hand Exposure: No ; Hx Alcohol Use: No Hx Substance Use: No Results & Data Vital Signs Vital Signs - 24 hr 11/13/19 17:46 11/13/19 17:51 11/13/19 18:09 Temperature 37.2 C Temperature Source Oral Pulse Rate 88 94 H 87 Pulse Rate [Apical] Pulse Rate from SpO2 Sensor 88 87 Respiratory Rate 21 18 23 Blood Pressure 178/67 H 178/67 H Blood Pressure [Right Arm] Blood Pressure Mean 125 104 Blood Pressure Mean [Right Arm] Pulse Oximetry 96 95 95 Oxygen Delivery Method Room Air Sepsis Recent Fever Within 48 Hours Yes Sepsis New/Unexplained Change in Mental Status No Sepsis Action Taken by Nursing No Action Required 11/13/19 18:10 11/13/19 18:20 11/13/19 18:26 Temperature Temperature Source Pulse Rate 87 82 90 Pulse Rate [Apical] Pulse Rate from SpO2 Sensor 87 Respiratory Rate 21 20 14 Blood Pressure 146/107 H Blood Pressure [Right Arm] Blood Pressure Mean 126 Blood Pressure Mean [Right Arm] Pulse Oximetry 96 Oxygen Delivery Method Sepsis Recent Fever Within 48 Hours Sepsis New/Unexplained Change in Mental Status Sepsis Action Taken by Nursing 11/13/19 18:29 11/13/19 18:30 11/13/19 18:40 Temperature Temperature Source Pulse Rate 83 83 Pulse Rate [Apical] 87 Pulse Rate from SpO2 Sensor Respiratory Rate 20 19 20 Blood Pressure Blood Pressure [Right Arm] 146/97 H Blood Pressure Mean Blood Pressure Mean [Right Arm] 113 Pulse Oximetry 95 Oxygen Delivery Method Room Air Sepsis Recent Fever Within 48 Hours Sepsis New/Unexplained Change in Mental Status Sepsis Action Taken by Nursing 11/13/19 19:00 11/13/19 19:01 11/13/19 19:10 Temperature Temperature Source Pulse Rate 83 80 Pulse Rate [Apical] Pulse Rate from SpO2 Sensor 81 Respiratory Rate 16 21 Blood Pressure 173/73 H Blood Pressure [Right Arm] Blood Pressure Mean 101 Blood Pressure Mean [Right Arm] Pulse Oximetry 96 Oxygen Delivery Method Sepsis Recent Fever Within 48 Hours Sepsis New/Unexplained Change in Mental Status Sepsis Action Taken by Nursing 11/13/19 19:20 11/13/19 20:01 Temperature Temperature Source Pulse Rate 82 Pulse Rate [Apical] 92 H Pulse Rate from SpO2 Sensor 82 Respiratory Rate 18 Blood Pressure Blood Pressure [Right Arm] 155/97 H Blood Pressure Mean Blood Pressure Mean [Right Arm] 116 Pulse Oximetry 96 Oxygen Delivery Method Room Air Sepsis Recent Fever Within 48 Hours Sepsis New/Unexplained Change in Mental Status Sepsis Action Taken by Nursing Laboratory Data Result diagrams: 11/13/19 17:30 11/13/19 17:30 Lab Results 11/13/19 11/13/19 11/13/19 Range/Units 17:30 17:30 18:26 WBC 6.66 (4.8-10.8) K/uL RBC 4.68 (4.2-5.4) M/uL Hgb 15.6 (12.0-16.0) g/dL Hct 45.1 (37-47) % MCV 96.4 (80-100) fL MCH 33.3 (25-34) pg MCHC 34.6 (32-36) g/dL RDW Std Deviation 47.5 H (36.4-46.3) fL RDW Coeff of Lisa 13.7 (11.5-14.5) % Plt Count 178 (130-400) K/uL MPV 10.3 (7.4-10.4) fL Immature Gran % (Auto) 3.5 % Neut % (Auto) 72.1 % Lymph % (Auto) 16.1 % [place] % (Auto) 8.1 % Eos % (Auto) 0.2 % Baso % (Auto) 0.0 % Immature Gran # (Auto) 0.23 H (0.00-0.02) K/uL Neut # (Auto) 4.81 (1.4-6.5) K/uL Lymph # (Auto) 1.07 L (1.2-3.4) K/uL [place] # (Auto) 0.54 (0.11-0.59) K/uL Eos # (Auto) 0.01 (0-0.5) K/uL Baso # (Auto) 0.00 (0-0.2) K/uL Sodium 139 (136-145) mmol/L Potassium 3.5 (3.5-5.1) mmol/L Chloride 106 (98-107) mmol/L Carbon Dioxide 25 (21-32) mmol/L Anion Gap 8.0 (3-11) BUN 17 (7-18) mg/dl Creatinine 1.06 (0.6-1.2) mg/dl Est Cr Clr Drug Dosing 39.0 ml/min Est GFR ( Amer) 57.0 Est GFR (Non-Af Amer) 49.2 BUN/Creatinine Ratio 16.1 (10-20) Glucose 136 H (70-99) mg/dl Calcium 9.6 (8.5-10.1) mg/dl Magnesium 2.1 (1.8-2.4) mg/dl Total Bilirubin 0.9 (0.2-1) mg/dl AST 28 (15-37) U/L ALT 22 (12-78) U/L Alkaline Phosphatase 109 (45-117) U/L Total Creatine Kinase 384 H (26-192) U/L Total Protein 9.0 H (6.4-8.2) gm/dl Albumin 4.1 (3.4-5.0) gm/dl Globulin 4.9 H (2.5-4.0) gm/dl Albumin/Globulin Ratio 0.8 L (0.9-2) Urine Color Yellow Urine Appearance Clear (Clear) Urine pH 6.5 (4.5-7.5) Ur Specific [place] 1.011 (1.000-1.030) Urine Protein Negative (Negative) Urine Glucose (UA) Negative (Negative) Urine Ketones 1+ H (Negative) Urine Blood Trace H (Negative) Urine Nitrite Negative (Negative) Urine Bilirubin Negative (Negative) Urine Urobilinogen Negative (Negative) Ur Leukocyte Esterase Negative (Negative) Urine WBC (Auto) 1-5 (0-5) /hpf Urine RBC (Auto) 0-4 (0-4) /hpf U Hyaline Cast (Auto) 0 (0-5) /lpf U Epithel Cells (Auto) 10-20 H (0-5) /lpf Urine Bacteria (Auto) Negative (Negative) Administered Medications Sodium Chloride (Nss 1000ml) 1,000 mls @ 125 mls/hr IV .Q8H ANGELIQUE Stop: 11/14/19 02:14 Last Admin: 02/21/20 18:35 Dose: 125 mls/hr Documented by: [id number] Discontinued Medications Sodium Chloride (Nss) 500 mls @ 999 mls/hr IV .Q31M ANGELIQUE Stop: 11/13/19 18:45 Last Infusion: 11/13/19 20:04 Dose: 0 mls/hr Documented by: [id number] Admin: 11/13/19 18:35 Dose: 999 mls/hr Documented by: [id number] Discharge Plan Visit Data Chief Complaint: Fall Stated Complaint: FALL, AMS, ED Provider: Irving Russ Discharge Problem: CHI (closed head injury), Elevated troponin I level, Fall, Altered mental status Forms Stand Alone Forms: [employer] Prescriptions Prescriptions: No Action levothyroxine 75 mcg tablet 75 mcg PO QAM RF: 0 baclofen 10 mg tablet 10 mg PO BID PRN (Reason: Spasms) RF: 0 acetaminophen [Acetaminophen Extra Strength] 500 mg Tablet 1,000 mg PO TID PRN (Reason: Pain) RF: 0 multivitamin Tablet 1 tab PO QAM RF: 0 anastrozole 1 mg tablet 1 mg PO QAM RF: 0 amlodipine 5 mg tablet 5 mg PO QAM RF: 0 omeprazole 20 mg Tablet,Delayed Release (Dr/Ec) 20 mg PO QAM RF: 0 aspirin [Aspirin Low Dose] 81 mg Tablet,Delayed Release (Dr/Ec) 81 mg PO QAM RF: 0 Referrals Referrals: Wu Hawkins DO [Primary Care Provider] -
[2019-11-13] MEDS ORDERED: SODIUM CHLORIDE 0.9% 1000ML 1,000 ML IV SCH (18:15)
[2019-11-13] MEDS ORDERED: SODIUM CHLORIDE 0.9% 500 ML IV SCH (18:15)
[2019-11-13 18:17] LABS: Eosinophils # (auto) 0.01 K/uL (0-0.5); Eosinophils % (auto) 0.2 %; Hematocrit (blood only) 45.1 % (37-47); Hemoglobin 15.6 g/dL (12.0-16.0); Immature Granulocytes # (auto) 0.23 K/uL (0.00-0.02); Immature Granulocytes % (auto) 3.5 %; Lymphocytes # (auto) 1.07 K/uL (1.2-3.4); Lymphocytes % (auto) 16.1 %; Mean Corpuscular Hemoglobin 33.3 pg (25-34); Mean Corpuscular Hgb Conc 34.6 g/dL (32-36); Mean Corpuscular Volume 96.4 fL (80-100); Mean Platelet Volume 10.3 fL (7.4-10.4); Monocytes # (auto) 0.54 K/uL (0.11-0.59); Monocytes % (auto) 8.1 %; Neutrophils # (auto) 4.81 K/uL (1.4-6.5); Neutrophils % (auto) 72.1 %; Platelet Count 178 K/uL (130-400); RDW Coefficient of Variation 13.7 % (11.5-14.5); RDW Standard Deviation 47.5 fL (36.4-46.3); Red Blood Count 4.68 M/uL (4.2-5.4); White Blood Count 6.66 K/uL (4.8-10.8)
[2019-11-13 18:20] LABS: Albumin Level 4.1 gm/dl (3.4-5.0); BUN Creatinine Ratio 16.1 (10-20); Calcium 9.6 mg/dl (8.5-10.1); Est GFR (Non-African American) 49.2; Potassium 3.5 mmol/L (3.5-5.1)
--- NOTE | 2019-11-13 18:28 | Emergency Department Note ---
Entered by Caroline Boles acting as a scribe for Irving Russ MD ED Provider Note CHIEF COMPLAINT: [] HISTORY OF PRESENT ILLNESS: The patient is a [] year old [] who presents to the Emergency Room with complaints of [] Pt denies LOC, headache, fevers, chills, diaphoresis, visual changes, neck pain, chest pain, breathing difficulties, nausea, vomiting, abdominal pain, back pain, melena, hematochezia, urinary symptoms, numbness, weakness, lymphadenopathy, rash, or other complaints. REVIEW OF SYSTEMS: See HPI for pertinent positives and negatives. A total of ten systems were reviewed and were otherwise negative. PMHx/PSHx: [] SOCIAL HISTORY: Patient lives at home. PHYSICAL EXAM: GENERAL: Awake, alert, well-appearing, in no distress HENT: Normocephalic, atraumatic. Oropharynx unremarkable. EYES: PERRL. Normal conjunctiva. Sclera non-icteric. NECK: Inspection normal. Non-tender. Supple. No nuchal rigidity. FROM. No masses. RESPIRATORY: Clear to auscultation. No wheezes. No rales. Normal respiratory effort. CARDIAC: Normal rate. Normal rhythm. No murmurs. No rubs. Extremities warm and well perfused. Pulses equal. No JVD. GI: Soft, non-distended. No tenderness to palpation. No rebound or guarding. No masses. RECTAL: Deferred. MUSCULOSKELETAL: Atraumatic. Chest examination reveals no tenderness. The back is symmetrical on inspection without obvious abnormality. There is no CVA t enderness to palpation. No joint edema. LOWER EXTREMITIES: Calves are equal size bilaterally and non-tender. No edema. No discoloration. NEURO: Normal sensorium. No sensory or motor deficits noted. SKIN: No rash or jaundice noted. EMERGENCY DEPARTMENT COURSE: []: Past medical records reviewed. The patient was evaluated in room [], and a complete history and physical examination were performed. MEDICAL DECISION MAKING: [] IMPRESSION: [] PLAN: [] The scribe's documentation has been prepared under my direction and personally reviewed by me in its entirety. I confirm that the note above accurately reflects all work, treatment, procedures, and medical decision making performed by me. Past Med/Surg History Social History (Reviewed 05/03/19 @ 12:26 by MAGDY Bailey Preferred Language: Hungarian Communication Ability: Effective Broadcaster Required: No Beliefs That Will Affect Care: None Current Living Situation: Alone Current Living Situation Comment: apartment Feels Safe at Home: Yes Smoking Status: Never smoker Second Hand Exposure: No ; Hx Alcohol Use: No Hx Substance Use: No Results & Data Vital Signs Vital Signs - 24 hr 11/13/19 17:51 Temperature 37.2 C Temperature Source Oral Pulse Rate 94 H Respiratory Rate 18 Blood Pressure 178/67 H Blood Pressure Mean 104 Pulse Oximetry 95 Oxygen Delivery Method Room Air Sepsis Recent Fever Within 48 Hours Yes Sepsis New/Unexplained Change in Mental Status No Sepsis Action Taken by Nursing No Action Required Laboratory Data Result diagrams: 11/13/19 17:30 11/13/19 17:30 Discharge Plan Visit Data Chief Complaint: Fall Stated Complaint: FALL, AMS, ED Provider: Irving Russ Prescriptions Prescriptions: No Action multivitamin Tablet 1 tab PO QAM RF: 0 anastrozole 1 mg tablet 1 mg PO QAM RF: 0 amlodipine 5 mg tablet 5 mg PO QAM RF: 0 levothyroxine 100 mcg tablet 100 mcg PO QAM RF: 0 sertraline 25 mg tablet 25 mg PO QAM RF: 0 omeprazole 20 mg Tablet,Delayed Release (Dr/Ec) 20 mg PO DAILY PRN (Reason: Heartburn) RF: 0 aspirin [Aspirin Low Dose] 81 mg Tablet,Delayed Release (Dr/Ec) 81 mg PO QAM RF: 0 acetaminophen [Mapap (acetaminophen)] 325 mg Tablet 650 mg PO TID Qty: 90 RF: 0
[2019-11-13 18:29] LABS: Albumin Globulin Ratio 0.8 (0.9-2); Bilirubin,Total 0.9 mg/dl (0.2-1); Globulin 4.9 gm/dl (2.5-4.0); Magnesium 2.1 mg/dl (1.8-2.4)
[2019-11-13 18:38] LABS: Appearance Urine Clear (Clear); Bacteria Urine Automated Negative (Negative); Bilirubin Urine Negative (Negative); Blood Urine Trace (Negative); Cast Urine Automated 0 /lpf (0-5); Color Urine Yellow; Glucose Urine UA Negative (Negative); Ketones Urine 1+ (Negative); Leukocyte Esterase Urine Negative (Negative); Nitrite Urine Negative (Negative); Protein Urine Negative (Negative); RBC Urine Automated 0-4 /hpf (0-4); Specific Gravity Urine 1.011 (1.000-1.030); Urobilinogen Urine Negative (Negative); pH Urine 6.5 (4.5-7.5)
--- NOTE | 2019-11-13 18:41 | XRay Report ---
XR chest 1V portable HISTORY: 79 years-old Female weakness acute weakness COMPARISON: Chest radiograph 05/02/2019 TECHNIQUE: Portable AP view of the chest FINDINGS: Cardiomediastinal and hilar silhouettes are within normal limits. Calcific plaque of the thoracic aor tic arch. Mitral annular calcifications also noted. Lungs are mildly hyperinflated. No pneumothorax, pleural effusion, focal airspace consolidation or overt pulmonary edema. Bones of the chest appear gr ossly intact. IMPRESSION: No acute process. ACT 112: Negative or not required by law. The above report was generated using voice recognition software. It may contain grammatical, syntax o r spelling errors. Electronically signed by: Raji Jorge M.D. 11/13/2019 6:40 PM
--- NOTE | 2019-11-13 19:14 | CT Scan Report ---
CT head/brain wo con CLINICAL HISTORY: 79 years-old Female with fall. Acute head and neck injury status post fall TECHNIQUE: Multiple axial CT images of the head were obtained without contrast. A dose lowering tech nique was utilized adhering to the principles of ALARA. COMPARISON: CT cervical spine of same day FINDINGS: No acute intracranial hemorrhage, midline shift, intracranial mass, hydrocephalus, acute territorial ischemia or abnormal extra-axial collection. Age-related involutional changes with mild ex vacuo vent ricular likely. Patchy white matter hypodensities suggest chronic microvascular ischemic disease. Cer ebral vascular calcifications are noted. Large area of encephalomalacia involves the right MCA territ ory predominantly involving the right frontal and temporal lobes. Smaller area of encephalomalacia in volves the left occipital lobe. The calvarium is intact. The paranasal sinuses, mastoid air cells, and middle ear cavities are clear . IMPRESSION: 1. No acute intracranial abnormality or chondral fracture. 2. Age-related involutional changes with chronic microvascular ischemic disease. 3. Remote infarctions as above includes a large area of encephalomalacia from remote right MCA infarc t. ACT 112: Negative or not required by law. The above report was generated using voice recognition software. It may contain grammatical, syntax o r spelling errors. Electronically signed by: Raji Jorge M.D. 11/13/2019 7:13 PM
--- NOTE | 2019-11-13 19:21 | CT Scan Report ---
CT cervical spine wo con CT DOSE: 1870.92 mGy.cm CLINICAL HISTORY: 79 years-old Female with fall. Acute head and neck injury status post fall COMPARISON: CT thoracic spine of same day therapy scan 05/24/2015 TECHNIQUE: Multiple axial CT images o f the cervical spine were obtained without contrast. A dose lowering technique was utilized adhering to the principles of ALARA. FINDINGS: Demineralized appearance of the bones. Severe disc space narrowing at C3-C4, C5-C6 and C6-C7. 4 mm sc lerotic focus of the C4 vertebral body is suggestive of a probable bone island. Moderate spondylitic spurring is present with multilevel posterior disc osteophyte complex formations. Moderate to severe altered level facet arthrosis. No acute fracture or subluxation identified. Evaluation of the central canal and neuroforamina is better assessed by MRI. Multilevel foraminal narrowing is noted. No pneumothorax. Asymmetric subpleural groundglass opacity of the left lung apex measures up to 2.1 x 1.6 cm. This is new from the 05/24/2015 exam. 2 mm solid nodule of the right lung apex. Heterogeneous appearance of the left thyroid lobe. Calcified plaque of the carotid bulbs. No prevertebral soft tiss ue swelling. IMPRESSION: 1. No acute cervical spine fracture or subluxation. 2. Asymmetric subpleural groundglass opacity of the left lung apex measures up to 2.1 x 1.6 cm, new f rom the 2014 comparison. This likely represents an area of pleural-parenchymal scarring with fibrosis however a 3 month follow-up chest CT is recommended to further evaluate. ACT 112: Negative or not required by law. The above report was generated using voice recognition software. It may contain grammatical, syntax o r spelling errors. Electronically signed by: Raji Jorge M.D. 11/13/2019 7:20 PM
--- NOTE | 2019-11-13 19:37 | CT Scan Report ---
CT thoracic spine wo con HISTORY: 79 years-old Female fall. upper pain acute upper back pain status post fall COMPARISON: CT cervical spine of same day, CT cervical scan 05/24/2015 TECHNIQUE: Multiple axial CT images of the thoracic spine were obtained without the use of IV contras t. Coronal and sagittal reformatted images were obtained from the axial data set and were symmetric f or review. A dose lowering technique was used consistent with the principals of ALA. FINDINGS: Mild emphysema. Asymmetric subpleural groundglass opacity of the left lung apex, 2.1 x 1.6 x 1.5 cm i s new from 2014. Subpleural 3 mm solid nodule of the left upper lung on image 88 series 7. Calcific g ranuloma of the right lung apex. Mild subpleural atelectasis/scarring of the medial basal segment rig ht lower lobe. Probable cyst of the interpolar left kidney, 1.9 cm. Mild thickening of the adrenal gl ands suggests hyperplasia. Tiny hiatal hernia. Coronary arterial calcifications. Indeterminate 1.6 cm intermediate attenuating lesion of the mid posterior spleen is noted with partially imaged and parti ally calcified 1.3 center lesion of the anterior-inferior spleen, both of these lesions are nonspecif ic however statistically are likely benign. There is no prevertebral soft tissue swelling. No high-gr ben central canal stenosis identified. Demineralized appearance of the bones. Mild convex right curvature of the midthoracic spine. There is unchanged minimal superior endplate compression at T5 with mild remote anterior wedge deformities at T11 and T12. No acute fracture or retropulsion identified. Mostly mild multilevel intervertebral dis c space narrowing with spondylitic spurring. Indeterminate 9 mm sclerotic focus involves the left pos terolateral aspect of the T3 vertebral body. There is an ill-defined 11 x 11 mm lucent lesion involvi ng the posterior aspect of the T6 vertebral body resulting in erosion of the posterior cortex. There appears to be a corticated anterior margin of this lesion. No epidural soft tissue mass identified. T his finding is new from 2014. IMPRESSION: 1. No acute fracture or subluxation identified. 2. 11 x 11 mm lucent lesion of the T6 vertebral body partially erodes the posterior cortex and is new from 2014. This could be further characterized with a nonemergent follow-up MRI of the thoracic spin e with and without IV contrast. 3. Indeterminate sclerotic focus of the T3 vertebral body, possibly degenerative. 4. Asymmetric groundglass opacity of the left lung apex measuring up to 2.1 cm is also new from 2015. Fibrosis with pleural parenchymal scarring versus pulmonary lesion are the differential consideratio ns. 3 month follow-up chest CT recommended. 5. Emphysema. ACT 112: Negative or not required by law. The above report was generated using voice recognition software. It may contain grammatical, syntax o r spelling errors. Electronically signed by: Raji Jorge M.D. 11/13/2019 7:36 PM
[2019-11-13 20:43] LABS: Thyroid Stimulating Hormone 1.95 uIu/ml (0.300-4.500); Troponin I 0.046 ng/ml (0-0.045)
[2019-11-14] MEDS ORDERED: ACETAMINOPHEN 325 MG TAB PO PRN ×2 (02:28→06:56)
[2019-11-14] MEDS ORDERED: NITROGLYCERIN SL 0.4 MG/TAB TAB SL PRN (02:28)
[2019-11-14] MEDS ORDERED: BACLOFEN 10 MG TAB PO PRN (02:28)
[2019-11-14] MEDS ORDERED: SODIUM CHLORIDE 0.9% 1000ML 1,000 ML IV SCH (02:28)
[2019-11-14] MEDS ORDERED: ONDANSETRON INJ 2 MG/ML 2 ML VIAL IV PRN (02:28)
--- NOTE | 2019-11-14 04:17 | History and Physical Report ---
DATE OF ADMISSION: 11/14/2019 CHIEF COMPLAINT: Fall and confusion. 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 Lives alone. Her friend lives in next door. As her neighbors did not see her for sometime today, they went to check on her and she was found to be bleeding from the head and confused and the patient did not remember falling. She says she was sitting in the chair, but she did not remember when she fell and how long she laid on the ground. Currently oriented to name and place and can tell the year but does not know the month. Can tell the date of . Can give rest of the history. The patient says she eats only frozen food and she walks okay otherwise. She drives. She has some back pain earlier, but denies any pain now. No headache. She has a bruise in the right orbit. Denies any cough. No fever, chills. No nausea, no vomiting, no abdominal pain, no diarrhea or constipation, no blood in the stools. No burning micturition. Currently no earache, no runny nose, no sore throat. Otherwise, his appetite is okay. Resting comfortably and hemodynamically stable. ALLERGIES: No known drug allergies. PAST MEDICAL HISTORY: As mentioned above. PAST SURGICAL HISTORY: Left breast biopsy , colonoscopy, left partial mastectomy with lymphadenectomy, removal of the fibroid uterus. MEDICATIONS: The patient is on Tylenol 1000 mg p.o. t.i.d. p.r.n., baclofen 10 mg p.o. b.i.d. p.r.n., omeprazole 20 mg p.o. daily, levothyroxine 75 mcg p.o. daily, Norvasc 5 mg p.o. daily, Arimidex 1 mg p.o. daily, aspirin 81 mg p.o. daily, multivitamins daily. FAMILY HISTORY: Significant for sister has colon cancer. Brother has heart disease, [place] at age 59. Father had stroke. Mother has history of stroke. SOCIAL HISTORY: , currently lives alone. Former smoker, quit in 1997, smoked average of 0.5pack a day for 6 years. No alcohol use, no drug use. REVIEW OF SYMPTOMS: As per HPI. Rest of review of symptoms negative. PHYSICAL EXAMINATION: GENERAL: The patient is old and frail, not in acute distress. VITAL SIGNS: Temperature 37.2, pulse 81, respiratory rate 18, blood pressure 145/80, oxygen 95% on room air. HEENT: No pallor, no icterus. Pupils equal, round, reactive to light. Bruise in the right orbit. NECK: No JVD, no neck masses, no carotid bruits. CARDIOVASCULAR: S1, S2. Regular rate and rhythm. No murmur, no gallop. RESPIRATORY SYSTEM: Normal AP diameter. No accessory muscle use. No wheezing, no crackles. ABDOMEN: Soft, bowel sounds present. Nontender. No distention. CENTRAL NERVOUS SYSTEM: Alert and oriented to name and place. Can tell the year, but not the date. Can tell the date of , obeys simple commands. Speech is clear. Moves extremities. Coordination of movements normal. EXTREMITIES: No edema, no erythema. LABORATORY DATA: WBC 6.6, hemoglobin 15.6, hematocrit 45.1, platelets 178. Sodium 139, potassium 3.5, chloride 106, bicarb 25, BUN 16, creatinine 1.06, serum glucose 136, calcium 9.6, magnesium 2.1. Total bilirubin 0.9, AST 28, ALT 22, alkaline phosphatase 109, total creatine kinase 384. Troponin I 0.046. TSH 1.95. Urinalysis; trace ketones, trace blood. IMAGING: Chest x-ray: No acute process seen. CT of the head: No acute intracranial abnormality or fractures, age-related involutional changes with chronic microvascular ischemic changes, remote infarctions includes large area from remote right MCA infarct. Cervical spine CT: No acute cervical spine fracture or subluxation, asymmetric subpleural ground-glass opacity of left lung apex measuring 2.1-1.6 cm new from [address] scan[address] Thor[address] spine [address]: 11 mm lucent lesion at T6 vertebral body, partially over the posterior cortex and new from 2015. This could be further characterized with nonemergent followup MRI of the thoracic spine with and without IV contrast, emphysema. EKG: Sinus rhythm with occasional PVCs at a rate of 86, left atrial enlargement, no acute ST changes seen. ASSESSMENT AND PLAN: This is an 79-year-old female who presents with fall and questionable confusion. 1. Fall: The patient does not remember when she fell, syncope versus seizures. Her neighbors found her. Currently oriented to name and place. Can tell the year, but does not know the exact date, but obeys simple commands. Speech is clear. Examination was grossly unremarkable. CT head is unremarkable. We will follow with repeat CT of the head. We will follow with echocardiogram, monitor in tele floor and we will consider EEG. We will check orthostatics. We will place on gentle fluids. 2. Mild elevation in troponin, also mild elevated CK. We will give IV fluids. Follow repeat CK in a.m. We will follow serial cardiac enzymes and echocardiogram. Currently, the patient is asymptomatic. EKG unremarkable. 3. Lesion in the lungs 2.1-1.6 cm, left apex lesion, needs followup CT scan. 4. Thoracic spine lesion at T6 vertebrae. We will get MRI scan when the patient is more stable. 5. History of hairy cell leukemia, status post chemo, in remission. 6. History of breast cancer, status post left partial mastectomy on Arimidex. Follows with Hem-Onc. 7. GERD, on PPI. 8. Hypothyroidism, on Synthroid. 9. Hypertension, on amlodipine. We will monitor the blood pressure. 10. DVT prophylaxis, SCDs for now. DISPOSITION: Admit to med/surg tele. PT and OT prior to discharge. Social Service to help with discharge planning. Level 1 full code. MTDD
[2019-11-14] MEDS: LEVOTHYROXINE SODIUM 75 MCG TABLET PO SCH (06:13)
[2019-11-14 06:31] LABS: Troponin I 0.049 ng/ml (0-0.045)
[2019-11-14] MEDS ORDERED: AMLODIPINE BESYLATE 5 MG TAB PO SCH (09:00)
[2019-11-14 09:23] LABS: Folate (Folic Acid) 19.45 ng/ml (>5.38)
--- NOTE | 2019-11-14 09:45 | CT Scan Report ---
HEAD CT NONCONTRAST CT DOSE: 614.27 mGy.cm HISTORY: followup ct. s/p fall TECHNIQUE: Multiaxial CT images of the head were performed without the use of intravenous contrast. A utomated exposure control was utilized for this study. A dose lowering technique was utilized adheri ng to the principles of ALARA. Comparison: Head CT 11/13/2019. Findings: The paranasal sinuses and mastoid air cells are clear. The calvarium and skull base are int act. There is no mass, hematoma, midline shift, acute infarct. White matter hypodensity is nonspecifi c but suggestive of microvascular ischemic change. The ventricles and sulci demonstrate mild age-rela maurice involutional changes. Old right MCA territory infarct is again noted. Small old infarct within th e left parietal lobe are again noted. Impression: No significant change compared to the prior study. No acute intracranial abnormality. Old infarcts ar e again noted. ACT 112: Negative or not required by law. Electronically signed by: Blade Khan M.D. 11/14/2019 9:43 AM
[2019-11-14] MEDS: SODIUM CHLORIDE 0.9% 1000ML 1,000 ML IV SCH (10:46)
[2019-11-14] MEDS: ANASTROZOLE 1 MG TAB PO SCH (10:47)
[2019-11-14] MEDS: ASPIRIN 81 MG ECTAB PO SCH (10:48)
[2019-11-14] MEDS: MULTIVITAMIN TAB PO SCH (11:04)
[2019-11-14] MEDS: PANTOprazole 40 MG TAB PO SCH (11:05)
[2019-11-14 11:10] LABS: Albumin Level 3.1 gm/dl (3.4-5.0); BUN Creatinine Ratio 19.9 (10-20); Calcium 8.3 mg/dl (8.5-10.1); Creatinine Clr Calc Pharmacy 46.9 ml/min; Est GFR (African American) 72.4; Est GFR (Non-African American) 62.5; Potassium 3.4 mmol/L (3.5-5.1)
[2019-11-14 11:22] LABS: Albumin Globulin Ratio 0.8 (0.9-2); Bilirubin,Total 0.5 mg/dl (0.2-1); Globulin 3.9 gm/dl (2.5-4.0); Troponin I 0.043 ng/ml (0-0.045)
--- NOTE | 2019-11-14 13:53 | Hospitalist Progress Note ---
Date of Service November 14, 2019 Assessment & Plan (1) Fall: -The patient presented to the emergency department after a fall and confusion on 11/13/2019 (Her friend lives in next door. As her neighbors did not see her for some time during the day, they went to check on her and she was found to be bleeding from the head and confused and the patient did not remember falling. She says she was sitting in the chair, but she did not remember when she fell and how long she laid on the ground. ) -admission CT head on 11/13/2019 1. No acute intracranial abnormality or chondral fracture. 2. Age-related involutional changes with chronic microvascular ischemic disease. 3. Remote infarctions as above includes a large area of encephalomalacia from remote right MCA infarct. -repeat Head CT 11/14/2019: No significant change compared to the prior study. No acute intracranial abnormality. Old infarcts are again noted. 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 No acute cervical spine fracture or subluxation. 2. Asymmetric subpleural groundglass opacity of the left lung apex measures up to 2.1 x 1.6 cm, new from the 2015 comparison. This likely represents an area of pleural-parenchymal scarring with fibrosis however a 3 month follow-up chest CT is recommended to further evaluate. -CT Thoracic spine 11/13/2019 1. No acute fracture or subluxation identified. 2. 11 x 11 mm lucent lesion of the T6 vertebral body partially erodes the posterior cortex and is new from 2015. This could be further characterized with a nonemergent follow-up MRI of the thoracic spine with and without IV contrast. 3. Indeterminate sclerotic focus of the T3 vertebral body, possibly degenerative. 4. Asymmetric groundglass opacity of the left lung apex measuring up to 2.1 cm is also new from 2015. Fibrosis with pleural parenchymal scarring versus pulmonary lesion are the differential considerations. 3 month follow-up chest CT recommended. -reviewed outpatient X ray lumbar spine from 11/05/2019 reported impressions 1. Focal concavity involving the inferior endplate at L4 could represent fracture or Schmorl's node, new compared to CT from 03/01/2018. 2. Degenerative changes as above, most pronounced at L1-L2, increased compared to prior radiographs. -the plans at this time while in the hospital is to evaluate the motor function and monitor to prevent recurrent falls. Patient does not have acute back pain discomfort on exam elevated creatine kinase -creatinine kinase in the 200s range -continue IV fluids elevated troponins -mildly elevated troponins on presentation as 0.046, 0.049. 0.046 -echocardiogram complete and results pending. no current chest pain symptoms Hypertension -on amlodipine 5 mg daily -will increase amlodipine dose to 10 mg daily based on recent blood pressures Hypothyroidism -on levothyroxine History of hairy cell leukemia, status post chemo, in remission. History of breast cancer, status post left partial mastectomy on Arimidex -has a scheduled oncology appointment 12/22/2019 2:00 PM Provider Jose M Bacon MD Department Hematology/Oncology [facility] GERD -on PPI Admission and Anticipated Discharge Date Admission Date: November 14, 2019, discharge day undetermined Subjective no headache.no dizziness. no nausea. no vomiting. no chest pain. no shortness of breath. breathing on room air. does not have acute back pain or neck pain s ymptoms Review of Systems Review of Systems: All systems reviewed & are unremarkable except as noted in HPI & below Physical Exam Constitutional: comfortable Eyes: PERRL, conjunctivae normal, anicteric sclerae ENMT: external ear and nose normal, oropharynx normal Neck: normal visual inspection Respiratory: normal respiratory effort Cardiovascular: Rate/Rhythm: regular rate and regular rhythm Gastrointestinal (Abdomen): normal bowel sounds, soft, nontender, no hepatosplenomegaly Musculoskeletal: right facial bruising Neurologic: PERRL, EOMI, accommodation nl, no face palsy, no dysarthria moves all extremities Psychiatric: Orientation: alert and cooperative Results & Data ([facility]) Vital Signs (Past 12 Hours) Vital Signs Temp Pulse Pulse Resp BP BP Pulse Ox 11/14/19 12:19 37.6 C H 73 19 181/84 H 95 11/14/19 08:04 37.1 C 80 18 156/72 H 94 11/14/19 08:00 96 H 11/14/19 02:45 36.5 C 83 84 20 169/78 H 96 11/14/19 02:26 36.8 C 84 18 169/78 H 96 11/14/19 01:59 75 16 157/92 H 96
[2019-11-14] MEDS ORDERED: AMLODIPINE BESYLATE 5 MG TAB PO ONE (13:59)
[2019-11-14] MEDS ORDERED: POTASSIUM CHLORIDE 20 MEQ TABCR PO STA (14:11)
--- NOTE | 2019-11-14 18:06 | Electrocardiogram Report ---
Test Reason : Blood Pressure : / mmHG Vent. Rate : 086 BPM Atrial Rate : 086 BPM P-R Int : 132 ms QRS Dur : 076 ms QT Int : 358 ms P-R-T Axes : 070 014 068 degrees QTc Int : 428 ms Sinus rhythm with occasional Premature ventricular complexes Possible Left atrial enlargement Borderline ECG When compared with ECG of 03-MAY-2019 06:35, Premature ventricular complexes are now Present Confirmed by Marcos Hinkle ([id number]) on 11/14/2019 6:06:24 PM Referred By: REFERRED SELF Confirmed By:Tristen Hinkle
[2019-11-14] MEDS: lisinopriL 10 MG TAB PO SCH (20:30)
[2019-11-15] MEDS: SODIUM CHLORIDE 0.9% 1000ML 1,000 ML IV SCH (06:04)
[2019-11-15] MEDS: LEVOTHYROXINE SODIUM 75 MCG TABLET PO SCH (06:05)
[2019-11-15 07:13] LABS: Albumin Level 2.7 gm/dl (3.4-5.0); BUN Creatinine Ratio 27.4 (10-20); Calcium 8.6 mg/dl (8.5-10.1); Creatinine Clr Calc Pharmacy 49.7 ml/min; Est GFR (African American) 77.8; Est GFR (Non-African American) 67.1; Potassium 3.7 mmol/L (3.5-5.1)
[2019-11-15 07:16] LABS: Albumin Globulin Ratio 0.7 (0.9-2); Bilirubin,Total 0.4 mg/dl (0.2-1); Globulin 3.7 gm/dl (2.5-4.0); Total Protein 6.4 gm/dl (6.4-8.2)
[2019-11-15] MEDS ORDERED: AMLODIPINE BESYLATE 5 MG TAB PO SCH (09:00)
[2019-11-15] MEDS: ANASTROZOLE 1 MG TAB PO SCH (09:13)
[2019-11-15] MEDS: ASPIRIN 81 MG ECTAB PO SCH (09:14)
[2019-11-15] MEDS: MULTIVITAMIN TAB PO SCH (09:14)
[2019-11-15] MEDS: PANTOprazole 40 MG TAB PO SCH (09:15)
[2019-11-15] MEDS: lisinopriL 10 MG TAB PO SCH (09:16)
--- NOTE | 2019-11-15 12:32 | Hospitalist Progress Note ---
Date of Service November 15, 2019 Assessment & Plan (1) Fall: -The patient presented to the emergency department after a fall and confusion on 11/13/2019 (Her friend lives in next door. As her neighbors did not see her for some time during the day, they went to check on her and she was found to be bleeding from the head and confused and the patient did not remember falling. She says she was sitting in the chair, but she did not remember when she fell and how long she laid on the ground. ) -admission CT head on 11/13/2019 1. No acute intracranial abnormality or chondral fracture. 2. Age-related involutional changes with chronic microvascular ischemic disease. 3. Remote infarctions as above includes a large area of encephalomalacia from remote right MCA infarct. -repeat Head CT 11/14/2019: No significant change compared to the prior study. No acute intracranial abnormality. Old infarcts are again noted. 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 No acute cervical spine fracture or subluxation. 2. Asymmetric subpleural groundglass opacity of the left lung apex measures up to 2.1 x 1.6 cm, new from the 2015 comparison. This likely represents an area of pleural-parenchymal scarring with fibrosis however a 3 month follow-up chest CT is recommended to further evaluate. -CT Thoracic spine 11/13/2019 1. No acute fracture or subluxation identified. 2. 11 x 11 mm lucent lesion of the T6 vertebral body partially erodes the posterior cortex and is new from 2015. This could be further characterized with a nonemergent follow-up MRI of the thoracic spine with and without IV contrast. 3. Indeterminate sclerotic focus of the T3 vertebral body, possibly degenerative. 4. Asymmetric groundglass opacity of the left lung apex measuring up to 2.1 cm is also new from 2015. Fibrosis with pleural parenchymal scarring versus pulmonary lesion are the differential considerations. 3 month follow-up chest CT recommended. -reviewed outpatient X ray lumbar spine from 11/05/2019 reported impressions 1. Focal concavity involving the inferior endplate at L4 could represent fracture or Schmorl's node, new compared to CT from 03/01/2018. 2. Degenerative changes as above, most pronounced at L1-L2, increased compared to prior radiographs. -Patient does not have acute back pain discomfort on exam or at rest. Outpatient follow up imaging as per primary care doctor elevated creatine kinase -creatinine kinase in the 200s range -was given IV fluids up to 11/15/2019 discharge day elevated troponins -mildly elevated troponins on presentation as 0.046, 0.049. 0.046 -echocardiogram complete: normal ejection fraction of 65 to 70& with mild mitral regurgitation. no current chest pain symptoms Hypertension -on amlodipine 5 mg daily at home -was started on amlodipine 10 mg and lisinopril 10 mg daily based on hospital blood pressures on 11/14/2019. Continue on discharge. Hypothyroidism -on levothyroxine History of hairy cell leukemia, status post chemo, in remission. History of breast cancer, status post left partial mastectomy on Arimidex -has a scheduled oncology appointment 12/22/2019 2:00 PM Provider Jose M Bacon MD Department Hematology/Oncology [facility] GERD -on PPI Admission and Anticipated Discharge Date Admission Date: November 14, 2019 Subjective Patient able to ambulate with physical therapy. No acute distress. No acute back pain. her friends are here to transport her to home from hospital no shortness of breath. no chest pain. no abdomen pain. no vomiting. no dizziness. no headache Review of Systems Review of Systems: All systems reviewed & are unremarkable except as noted in HPI & below Physical Exam Constitutional: comfortable Eyes: PERRL, conjunctivae normal, anicteric sclerae ENMT: external ear and nose normal, oropharynx normal Neck: normal visual inspection Respiratory: normal respiratory effort Cardiovascular: Rate/Rhythm: regular rate and regular rhythm Gastrointestinal (Abdomen): normal bowel sounds, soft, nontender, no hepatosplenomegaly Neurologic: PERRL, EOMI, accommodation nl, no face palsy, no dysarthria moves all extremities Psychiatric: Orientation: alert and cooperative Results [facility]) Vital Signs (Past 12 Hours) Vital Signs Temp Pulse Pulse Resp BP Pulse Ox 11/15/19 12:04 36.7 C 83 18 129/77 97 11/15/19 11:47 36.7 C 83 18 129/77 97 11/15/19 11:37 95 11/15/19 08:00 81 11/15/19 07:52 36.7 C 76 18 131/78 93 11/15/19 03:25 36.6 C 71 18 126/73 92
--- NOTE | 2019-11-15 12:35 | Discharge Summary ---
Date of Service November 15, 2019 Admission HPI Per Admitting Provider DATE OF ADMISSION: 11/14/2019 CHIEF COMPLAINT: Fall and confusion. 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 Lives alone. Her friend lives in next door. As her neighbors did not see her for sometime today, they went to check on her and she was found to be bleeding from the head and confused and the patient did not remember falling. She says she was sitting in the chair, but she did not remember when she fell and how long she laid on the ground. Currently oriented to name and place and can tell the year but does not know the month. Can tell the date of . Can give rest of the history. The patient says she eats only frozen food and she walks okay otherwise. She drives. She has some back pain earlier, but denies any pain now. No headache. She has a bruise in the right orbit. Denies any cough. No fever, chills. No nausea, no vomiting, no abdominal pain, no diarrhea or constipation, no blood in the stools. No burning micturition. Currently no earache, no runny nose, no sore throat. Otherwise, his appetite is okay. Resting comfortably and hemodynamically stable. ALLERGIES: No known drug allergies. PAST MEDICAL HISTORY: As mentioned above. PAST SURGICAL HISTORY: Left breast biopsy , colonoscopy, left partial mastectomy with lymphadenectomy, removal of the fibroid uterus. MEDICATIONS: The patient is on Tylenol 1000 mg p.o. t.i.d. p.r.n., baclofen 10 mg p.o. b.i.d. p.r.n., omeprazole 20 mg p.o. daily, levothyroxine 75 mcg p.o. daily, Norvasc 5 mg p.o. daily, Arimidex 1 mg p.o. daily, aspirin 81 mg p.o. daily, multivitamins daily. FAMILY HISTORY: Significant for sister has colon cancer. Brother has heart disease, [place] at age 59. Father had stroke. Mother has history of stroke. SOCIAL HISTORY: , currently lives alone. Former smoker, quit in 1997, smoked average of 0.5pack a day for 6 years. No alcohol use, no drug use. REVIEW OF SYMPTOMS: As per HPI. Rest of review of symptoms negative. Admission Exam Per Admitting Provider GENERAL: The patient is old and frail, not in acute distress. VITAL SIGNS: Temperature 37.2, pulse 81, respiratory rate 18, blood pressure 145/80, oxygen 95% on room air. HEENT: No pallor, no icterus. Pupils equal, round, reactive to light. Bruise in the right orbit. NECK: No JVD, no neck masses, no carotid bruits. CARDIOVASCULAR: S1, S2. Regular rate and rhythm. No murmur, no gallop. RESPIRATORY SYSTEM: Normal AP diameter. No accessory muscle use. No wheezing, no crackles. ABDOMEN: Soft, bowel sounds present. Nontender. No distention. CENTRAL NERVOUS SYSTEM: Alert and oriented to name and place. Can tell the year, but not the date. Can tell the date of , obeys simple commands. Speech is clear. Moves extremities. Coordination of movements normal. EXTREMITIES: No edema, no erythema. 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 with Thoracic spine lesion at T6 vertebrae elevated creatine kinase elevated troponins Hypertension Discharge Exam Constitutional comfortable Eyes PERRL, conjunctivae normal, anicteric sclerae ENMT external ear and nose normal, oropharynx normal Neck normal visual inspection Respiratory normal respiratory effort Cardiovascular Rate/Rhythm: regular rate and regular rhythm Gastrointestinal (Abdomen) normal bowel sounds, soft, nontender, no hepatosplenomegaly Neurologic PERRL, EOMI, accommodation nl, no face palsy, no dysarthria moves all extremities Psychiatric Orientation: alert and cooperative Discharge Data Allergies Allergy/AdvReac Type Severity Reaction Status Date / Time No Known Allergies Allergy Verified 11/13/19 19:31 Consultations 11/13/19 19:59 ED Decision to Admit Stat 11/14/19 02:28 Consult Case Management - Discharge Planning Routine Ordered Studies 11/13/19 18:08 CT head/brain wo con Stat 11/13/19 18:14 CT cervical spine wo con Stat CT thoracic spine wo con Stat 11/14/19 07:01 CT head/brain wo con Routine Hospital Course (1) Fall: -The patient presented to the emergency department after a fall and confusion on 11/13/2019 (Her friend lives in next door. As her neighbors did not see her for some time during the day, they went to check on her and she was found to be bleeding from the head and confused and the patient did not remember falling. She says she was sitting in the chair, but she did not remember when she fell and how long she laid on the ground. ) -admission CT head on 11/13/2019 1. No acute intracranial abnormality or chondral fracture. 2. Age-related involutional changes with chronic microvascular ischemic disease. 3. Remote infarctions as above includes a large area of encephalomalacia from remote right MCA infarct. -repeat Head CT 11/14/2019: No significant change compared to the prior study. No acute intracranial abnormality. Old infarcts are again noted. 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 No acute cervical spine fracture or subluxation. 2. Asymmetric subpleural groundglass opacity of the left lung apex measures up to 2.1 x 1.6 cm, new from the 2015 comparison. This likely represents an area of pleural-parenchymal scarring with fibrosis however a 3 month follow-up chest CT is recommended to further evaluate. -CT Thoracic spine 11/13/2019 1. No acute fracture or subluxation identified. 2. 11 x 11 mm lucent lesion of the T6 vertebral body partially erodes the po sterior cortex and is new from 2015. This could be further characterized with a nonemergent follow-up MRI of the thoracic spine with and without IV contrast. 3. Indeterminate sclerotic focus of the T3 vertebral body, possibly degenerative. 4. Asymmetric groundglass opacity of the left lung apex measuring up to 2.1 cm is also new from 2015. Fibrosis with pleural parenchymal scarring versus pulmonary lesion are the differential considerations. 3 month follow-up chest CT recommended. -reviewed outpatient X ray lumbar spine from 11/05/2019 reported impressions 1. Focal concavity involving the inferior endplate at L4 could represent fracture or Schmorl's node, new compared to CT from 03/01/2018. 2. Degenerative changes as above, most pronounced at L1-L2, increased compared to prior radiographs. -Patient does not have acute back pain discomfort on exam or at rest. Outpatient follow up imaging as per primary care doctor elevated creatine kinase -creatinine kinase in the 200s range -was given IV fluids up to 11/15/2019 discharge day. downtrended to 150 on 11/15/2019 elevated troponins -mildly elevated troponins on presentation as 0.046, 0.049. 0.046 -echocardiogram complete: normal ejection fraction of 65 to 70& with mild mitral regurgitation. no current chest pain symptoms Hypertension -on amlodipine 5 mg daily at home -was started on amlodipine 10 mg and lisinopril 10 mg daily based on hospital blood pressures on 11/14/2019. Continue on discharge. Hypothyroidism -on levothyroxine History of hairy cell leukemia, status post chemo, in remission. 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 with Thoracic spine lesion at T6 vertebrae elevated creatine kinase elevated troponins Hypertension Condition on Discharge: Good Activity: Per Instructions section Non-emergency contact: Primary Care Provider Call non-emergency contact if: you have any medication questions Follow-up/Referrals: Wu Hawkins DO [Primary Care Provider] - Diet: Regular and Heart Healthy Addtl Attending Provider Instructions: discharge medications sent electronically to [address] of amlodipine 10 mg daily and lisinopril 10 mg daily upcoming appointments 11/19/2019 1:00 PM Provider Jenny Mcdonald MD Department General Internal Medicine [facility] 12/22/2019 2:00 PM Provider Jose M Bacon MD Department Hematology/Oncology [facility] 02/09/2020 2:20 PM Provider Wu Hawkins DO Department General Internal Medicine [facility] Speech and swallow discharge instructions: Patient would benefit from rehabilitative [employer] follow up. Regular diet. alternate between solids and liquids. single bites. small sips. slow rate Addtl [employer] Provider Instructions: -The patient presented to the emergency department after a fall and confusion on 11/13/2019 (Her friend lives in next door. As her neighbors did not see her for some time during the day, they went to check on her and she was found to be bleeding from the head and confused and the patient did not remember falling. She says she was sitting in the chair, but she did not remember when she fell and how long she laid on the ground. ) -admission CT head on 11/13/2019 1. No acute intracranial abnormality or chondral fracture. 2. Age-related involutional changes with chronic microvascular ischemic disease. 3. Remote infarctions as above includes a large area of encephalomalacia from remote right MCA infarct. -repeat Head CT 11/14/2019: No significant change compared to the prior study. No acute intracranial abnormality. Old infarcts are again noted. 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 No acute cervical spine fracture or subluxation. 2. Asymmetric subpleural groundglass opacity of the left lung apex measures up to 2.1 x 1.6 cm, new from the 2015 comparison. This likely represents an area of pleural-parenchymal scarring with fibrosis however a 3 month follow-up chest CT is recommended to further evaluate. -CT Thoracic spine 11/13/2019 1. No acute fracture or subluxation identified. 2. 11 x 11 mm lucent lesion of the T6 vertebral body partially erodes the poste rior cortex and is new from 2015. This could be further characterized with a nonemergent follow-up MRI of the thoracic spine with and without IV contrast. 3. Indeterminate sclerotic focus of the T3 vertebral body, possibly degenerative. 4. Asymmetric groundglass opacity of the left lung apex measuring up to 2.1 cm is also new from 2015. Fibrosis with pleural parenchymal scarring versus pulmonary lesion are the differential considerations. 3 month follow-up chest CT recommended. -reviewed outpatient X ray lumbar spine from 11/05/2019 reported impressions 1. Focal concavity involving the inferior endplate at L4 could represent fracture or Schmorl's node, new compared to CT from 03/01/2018. 2. Degenerative changes as above, most pronounced at L1-L2, increased compared to prior radiographs. -Patient does not have acute back pain discomfort on exam or at rest. Outpatient follow up imaging as per primary care doctor elevated creatine kinase -creatinine kinase in the 200s range. -was given IV fluids up to 11/15/2019 discharge day. downtrended to 150 on 11/15/2019 elevated troponins -mildly elevated troponins on presentation as 0.046, 0.049. 0.046 -echocardiogram complete: normal ejection fraction of 65 to 70& with mild mitral regurgitation. no current chest pain symptoms Hypertension -on amlodipine 5 mg daily at home -was started on amlodipine 10 mg and lisinopril 10 mg daily based on hospital blood pressures on 11/14/2019. Continue on discharge. Hypothyroidism -on levothyroxine History of hairy cell leukemia, status post chemo, in remission. History of breast cancer, status post left partial mastectomy on Arimidex -has a scheduled oncology appointment 12/22/2019 2:00 PM Provider Jose M Bacon MD Department Hematology/Oncology [facility] GERD -on PPI Pending Studies at Discharge: No Stand-Alone Forms: [facility] [employer], Smoking Cessation Medications and DC Order Prescriptions: New amlodipine [Norvasc] 5 mg Tablet 10 mg PO QAM 30 Days Qty: 60 RF: 0 lisinopril 10 mg Tablet 10 mg PO QAM 30 Days Qty: 30 RF: 0 Continued levothyroxine 75 mcg tablet 75 mcg PO QAM RF: 0 baclofen 10 mg tablet 10 mg PO BID PRN (Reason: Spasms) RF: 0 multivitamin Tablet 1 tab PO QAM RF: 0 anastrozole 1 mg tablet 1 mg PO QAM RF: 0 omeprazole 20 mg Tablet,Delayed Release (Dr/Ec) 20 mg PO QAM RF: 0 aspirin [Aspirin Low Dose] 81 mg Tablet,Delayed Release (Dr/Ec) 81 mg PO QAM RF: 0 Discontinued acetaminophen [Acetaminophen Extra Strength] 500 mg Tablet 1,000 mg PO TID PRN (Reason: Pain) RF: 0 amlodipine 5 mg tablet 5 mg PO QAM RF: 0 Discharge Orders: Discharge Order (Routine); Ordered 11/15/19 Ordered By: Víctor Valente Admission Data Admit Date/Time: 11/14/19 01:37 Attending Provider: Víctor Valente Admit Provider: [facility] [place] Primary Care Provider: Wu Hawkins Other Providers: [place] ; [facility],Home [facility] Other Interventions: Discharge Summary Assessment (RN) Last Done: 11/15/19 12:04
--- NOTE | 2019-11-15 16:50 | Electrocardiogram Report ---
Test Reason : Blood Pressure : / mmHG Vent. Rate : 077 BPM Atrial Rate : 077 BPM P-R Int : 134 ms QRS Dur : 076 ms QT Int : 390 ms P-R-T Axes : 069 040 061 degrees QTc Int : 441 ms Normal sinus rhythm Right atrial enlargement Possible Lateral infarct , age undetermined Abnormal ECG When compared with ECG of 13-NOV-2019 18:19, Premature ventricular complexes are no longer Present Confirmed by Marcos Hinkle ([id number]) on 11/15/2019 4:50:25 PM Referred By: REFERRED SELF Confirmed By:Tristen Hinkle
== END 2019-11-15 13:20 | disposition home health service (06) ==
LOC: 2N 17:38 → ED 17:38 → 2N 11-14 01:59

== ENCOUNTER 2022-07-20 08:26 | Inpatient (IN) ==
[2022-07-20] MEDS ORDERED: SODIUM CHLORIDE 0.9% 1000ML 500 ML IV ONE (08:42)
--- NOTE | 2022-07-20 08:42 | Emergency Department Note ---
Impression & Plan Closed fracture of right hip, Acute dehydration, Fall, Elevated troponin I level, Thrombocytopenia ED Provider Note NAME: JULIA MORA AGE: 82 SEX: F : 1940 ARRIVES VIA: Ambulance INFORMANT: Patient, ED PROVIDER(S): Sergio Waldron DO CHIEF COMPLAINT: Hip pain HPI: The patient is an 82-year-old female who presented to the emergency department for an evaluation of hip pain. The patient lives at home. According to the prehospital personnel the home appeared to be in somewhat of disarray and there was no food noted in the house. The patient had a fall today that she does not remember. She is unsure exactly what happened. She thinks she may have tripped. She denies having any headache nausea or vomiting. She denies having any chest pain or difficulty breathing. She does take blood thinners according to the prehospital personnel. She has had no recent visits to her family doctor. She states that she has had decreased p.o. intake. The patient states she has pain in her left knee as well as her right hip. She was unable to stand because of the pain. ROS: See above HPI for pertinent positives & negatives. A total of 10 systems reviewed and were otherwise negative. PAST MEDICAL HISTORY: See Below PAST SURGICAL HISTORY: See Below FAMILY HISTORY: See Below SOCIAL HISTORY: See Below HOME MEDICATIONS: See Below ALLERGIES: See Below VITALS: See Below PHYSICAL EXAMINATION: GENERAL: Patient is awake alert in no acute distress patient is resting comfortably and showing no signs of anxiety EYES: The conjunctivae are clear. The pupils are round and reactive. EARS, NOSE, MOUTH AND THROAT: The nose is without any evidence of any deformity. Mucous membranes are dry. NECK: The neck is nontender and supple. RESPIRATORY: Normal respiratory effort is noted there is no evidence of wheezing rhonchi or rales CARDIOVASCULAR: Regular rate and rhythm noted there no murmurs rubs or gallops normal S1 normal S2. GASTROINTESTINAL: The abdomen is soft. Abdomen is nontender. BACK: No midline tenderness or or step-off noted range of motion in flexion extension as well as rotation no signs of muscle spasm noted MUSCULOSKELETAL/EXTREMITIES: There are abrasions noted to both knees. There is tenderness over the patella on the left knee but no tenderness over the right knee. The right lower extremity is rotated externally. The patient has pain with range of motion testing of the right hip. SKIN: There is no obvious evidence of any rash. There are no petechiae, pallor or cyanosis noted. NEUROLOGIC: Patient is awake alert and oriented x3. There is no facial droop. MEDICAL DECISION MAKING: The patient is an 82-year-old female who has a history of metastatic breast cancer who presented to the emergency department for an evaluation of pain. The patient was found on her floor. She fell onto her right side. I discussed the patient's laboratory and radiographic studies with her. She was treated with pain medication. She was found to have signs of right-sided hip fracture. I discussed the patient's condition with the on-call [facility]. They have agreed to evaluate the patient in the emergency department for further management and disposition. Triage Nursing notes reviewed. Prior medical records reviewed Vital Signs: reviewed and remarkable for elevated blood pressure. Differential diagnosis: Fracture, dislocation, contusion, intra-abdominal, pneumothorax, intrathoracic, intracranial, neurologic, compartment syndrome, rhabdomyolysis, as well as other pathologies. ER treatment provided: See below Diagnostics interpreted by me: ECG: EKG was obtained in the emergency department. My interpretation is normal sinus rhythm at 70 bpm. There is no ectopy. There is no acute ST segment abnormalities noted. This was compared to a tracing from July 28, 2021. No changes were noted Cardiac Monitoring: An order was placed for continuous cardiac monitoring. The monitor shows a rate of 89 bpm with sinus rhythm. Laboratory studies: As stated above and show below. Imaging studies: See below Consultation(s): I discussed this case with Lucy who is on-call for the [facility]. Past Med/Surg History Medical History Altered mental status Anxiety Breast cancer (02/03/15) " DIAGNOSIS: 1. Left breast, invasive ductal carcinoma, grade 2, ER/OK positive, Her2-elie negative, [id number], stage IIIA Abnormal left breast mammogram Status post biopsy 02/03/2015 revealing invasive ductal carcinoma with lobular features Estrogen receptor positive, progesterone receptor positive, HER-2/elie negative Initial lumpectomy with SLN 03/08/2015 followed by modified radical mastectomy 04/12/2015 Status post completion of radiation therapy to the Left chest wall, supraclavicular area, and axilla completed 07/20/2015 received 5940 cGy 2. Hairy cell leukemia status post chemotherapy in 2013 Chest pain CHI (closed head injury) CATALAN (dyspnea on exertion) DVT prophylaxis Elevated troponin I level Exertional chest pain Fall GERD (gastroesophageal reflux disease) Hairy cell leukemia History of CVA (cerebrovascular accident) History of radiation therapy 07/20/2015 to left chestwall HTN (hypertension) Hypothyroidism Intercostal pain Metastatic breast cancer (01/05/20) Osteoporosis Skin cancer SCC Thrombocytopenia Surgical History History of colonoscopy S/P left mastectomy With axillary lymph node dissection Family History Father Stroke Mother Stroke Brother Myocardial infarction Brother COPD (chronic obstructive pulmonary disease) Sister Colon cancer Other Hypertension Social History Smoking Status: Former smoker Second Hand Exposure: No; Do You Dip or Chew Tobacco: No; Tobacco Cessation Education Requested by Patient: No Hx Alcohol Use: No Hx Substance Use: No Preferred Language: Djiboutian Communication Ability: Effective Visual Impairment: No Limitations Hearing Ability: Hard of Hearing Stock Fitter Required: No Beliefs That Will Affect Care: None marital status: / Current Living Situation: Alone Current Living Situation Comment: goes to step-son's house at 10am current occupational status: retired 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 Other Information That Helps Us Care for You: No Feels Safe at Home: Yes Safety Concerns: Feels Safe At This Time caffeine: Yes (3-4 cups/day) during the past year weight has: remained stable Assistive Devices: Cane Allergies Allergies Allergy/AdvReac Type Severity Reaction Status Date / Time No Known Allergies Allergy Verified 07/28/21 17:25 Home Meds Home Medications Medication Instructions Recorded Confirmed omeprazole 20 mg tablet,delayed 20 mg PO QAM 05/01/19 07/20/22 release aspirin 81 mg tablet,delayed 81 mg PO QAM 05/02/19 07/20/22 release (Jayson Low Dose Aspirin) levothyroxine 75 mcg tablet 75 mcg PO QAM 11/13/19 07/20/22 acetaminophen 500 mg tablet 500 mg PO Q6H PRN Pain 01/22/20 07/20/22 (Tylenol Extra Strength) amlodipine 5 mg tablet 5 mg PO DAILY 01/22/20 07/20/22 calcium carbonate 600 mg-vitamin 1 cap PO BID 01/22/20 07/20/22 D3 5 mcg (200 unit) capsule denosumab 120 mg/1.7 mL (70 mg/mL) 120 mg subcut .As directed 01/22/20 07/20/22 subcutaneous solution Results & Data (ED) Vital Signs Vital Signs - 24 hr 07/20/22 08:31 07/20/22 08:50 07/20/22 10:23 Temperature 36.6 C Temperature Source Oral Pulse Rate 81 75 Pulse Rate [Finger] 88 Pulse Rhythm Regular Pulse Rhythm [Finger] Pulse Strength Normal Pulse Strength [Finger] Respiratory Rate 20 18 16 Respiratory Effort / Characteristics Non-Labored Spontaneous Respiratory Depth Normal Respiratory Pattern Regular Blood Pressure 169/93 H Blood Pressure [Left Arm] Blood Pressure [Right Arm] 138/68 Blood Pressure Mean 118 Blood Pressure Mean [Left Arm] Blood Pressure Mean [Right Arm] 91 Blood Pressure Position Lying Blood Pressure Position [Right Arm] Pulse Oximetry 98 93 96 Oxygen Delivery Method Room Air Room Air Sepsis Recent Fever Within 48 Hours No Sepsis New/Unexplained Change in Mental Status No Sepsis Action Taken by Nursing No Action Required 07/20/22 11:37 Temperature Temperature Source Pulse Rate Pulse Rate [Finger] 88 Pulse Rhythm Pulse Rhythm [Finger] Regular Pulse Strength Pulse Strength [Finger] Normal Respiratory Rate 23 Respiratory Effort / Characteristics Non-Labored Respiratory Depth Normal Respiratory Pattern Regular Blood Pressure Blood Pressure [Left Arm] 154/76 H Blood Pressure [Right Arm] 154/76 H Blood Pressure Mean Blood Pressure Mean [Left Arm] 102 Blood Pressure Mean [Right Arm] 102 Blood Pressure Position Blood Pressure Position [Right Arm] Lying Pulse Oximetry 94 Oxygen Delivery Method Room Air Sepsis Recent Fever Within 48 Hours Sepsis New/Unexplained Change in Mental Status Sepsis Action Taken by [facility]dc Medications Current Medication List: was personally reviewed by me Laboratory Data Attestation: I reviewed the patient's lab results. Result diagrams: 07/20/22 08:52 07/20/22 08:52 Lab Results 07/20/22 07/20/22 07/20/22 Range/Units 08:52 08:52 08:52 WBC 10.43 (4.8-10.8) K/ul RBC 3.82 L (3.93-5.22) M/uL Hgb 12.8 (12.0-16.0) g/dl Hct 37.7 (34.1-44.9) % MCV 98.7 (80.0-100.0) fL MCH 33.5 (25.0-34.0) pg MCHC 34.0 (32.0-36.0) g/dL RDW Std Deviation 47.4 H (36.4-46.3) fL RDW Coeff of Lisa 13.2 (11.5-14.5) % Plt Count 92 L (130-400) K/uL MPV 10.8 (9.4-12.3) fL Immature Gran % (Auto) 2.2 % Neut % (Auto) 89.3 % Lymph % (Auto) 2.0 % [place] % (Auto) 6.5 % Eos % (Auto) 0.0 % Baso % (Auto) 0.0 % Neut # (Auto) 9.31 H (1.4-6.5) K/uL Lymph # (Auto) 0.21 L (1.2-3.4) K/uL [place] # (Auto) 0.68 (0.24-0.82) K/uL Eos # (Auto) 0.00 (0-0.50) K/uL Baso # (Auto) 0.00 (0-0.2) K/uL Immature Gran # (Auto) 0.23 H (0.00-0.02) K/uL Platelet Estimate Decreased L (Normal) PT 11.3 (9.0-12.0) Seconds INR 1.1 (0.9-1.1) APTT 23.6 (21.0-31.0) Seconds PTT Ratio 0.9 Sodium 139 (136-145) mmol/L Potassium 3.7 (3.5-5.1) mmol/L Chloride 103 (98-107) mmol/L Carbon Dioxide 26 (21-32) mmol/L Anion Gap 10 (3-11) BUN 27 H (6-23) mg/dl Creatinine 0.90 (0.6-1.2) mg/dl Est Cr Clr Drug Dosing 38.4 ml/min Est GFR ( Amer) 68.1 ml/min Est GFR (Non-Af Amer) 58.7 ml/min BUN/Creatinine Ratio 30.0 H (10-20) Glucose 165 H (70-99(Fasting)) mg/dl Calcium 8.8 (8.5-10.1) mg/dl Total Bilirubin 0.7 (0.2-1.0) mg/dl AST 30 (13-39) U/L ALT 31 (7-52) U/L Alkaline Phosphatase 47 (34-104) U/L Troponin I High Sens 15.5 H (0-14) pg/ml Total Protein 7.8 (6.0-8.3) gm/dl Albumin 4.6 (3.4-5.0) gm/dl Globulin 3.2 (2.5-4.0) gm/dl Albumin/Globulin Ratio 1.4 (0.9-2) Lipase 10 L (11-82) U/L SARS-CoV-2, RNA, NAAT (NEGATIVE) 07/20/22 Range/Units 08:52 WBC (4.8-10.8) K/ul RBC (3.93-5.22) M/uL Hgb (12.0-16.0) g/dl Hct (34.1-44.9) % MCV (80.0-100.0) fL MCH (25.0-34.0) pg MCHC (32.0-36.0) g/dL RDW Std Deviation (36.4-46.3) fL RDW Coeff of Lisa (11.5-14.5) % Plt Count (130-400) K/uL MPV (9.4-12.3) fL Immature Gran % (Auto) % Neut % (Auto) % Lymph % (Auto) % [place] % (Auto) % Eos % (Auto) % Baso % (Auto) % Neut # (Auto) (1.4-6.5) K/uL Lymph # (Auto) (1.2-3.4) K/uL [place] # (Auto) (0.24-0.82) K/uL Eos # (Auto) (0-0.50) K/uL Baso # (Auto) (0-0.2) K/uL Immature Gran # (Auto) (0.00-0.02) K/uL Platelet Estimate (Normal) PT (9.0-12.0) Seconds INR (0.9-1.1) APTT (21.0-31.0) Seconds PTT Ratio Sodium (136-145) mmol/L Potassium (3.5-5.1) mmol/L Chloride (98-107) mmol/L Carbon Dioxide (21-32) mmol/L Anion Gap (3-11) BUN (6-23) mg/dl Creatinine (0.6-1.2) mg/dl Est Cr Clr Drug Dosing ml/min Est GFR ( Amer) ml/min Est GFR (Non-Af Amer) ml/min BUN/Creatinine Ratio (10-20) Glucose (70-99(Fasting)) mg/dl Calcium (8.5-10.1) mg/dl Total Bilirubin (0.2-1.0) mg/dl AST (13-39) U/L ALT (7-52) U/L Alkaline Phosphatase (34-104) U/L Troponin I High Sens (0-14) pg/ml Total Protein (6.0-8.3) gm/dl Albumin (3.4-5.0) gm/dl Globulin (2.5-4.0) gm/dl Albumin/Globulin Ratio (0.9-2) Lipase (11-82) U/L SARS-CoV-2, RNA, NAAT NEGATIVE (NEGATIVE) Administered Medications Fentanyl Citrate (Fentanyl Citrate 100 Mcg/2 Ml Vial) 50 mcg IV Q15M PRN PRN Reason: Pain Stop: 08/03/22 10:57 Last Admin: 07/20/22 11:35 Dose: 50 mcg Documented By: JCARLOS Lactated Ringer's (Lr) 1,000 mls @ 80 mls/hr IV .[id number] ANGELIQUE Stop: 07/21/22 00:59 Last Admin: 07/20/22 15:01 Dose: 80 mls/hr Documented By: [id number] Discontinued Medications Sodium Chloride (Nss 1000ml) 500 mls @ 999 mls/hr IV .Q31M ONE Stop: 07/20/22 09:12 Last Infusion: 07/20/22 09:38 Dose: 0 mls/hr Documented By: Admin: 07/20/22 09:08 Dose: 999 mls/hr Documented By: ITZEL Ondansetron HCl (Ondansetron Inj 2 Mg/Ml 2 Ml Vial) 4 mg IV NOW STA Stop: 07/20/22 10:59 Last Admin: 07/20/22 11:33 Dose: 4 mg Documented By: [facility] Imaging Data Radiologist's Impression: Cervical Spine CT 07/20/22 08:[address] DOSE: 1441.55 mGy.cm HISTORY: Neck pain. fall TECHNIQUE: Multiaxial CT images of the cervical spine were performed and reformatted in the sagittal and coronal plane without the use of contrast. A dose lowering technique was utilized adhering to the principles of ALARA. COMPARISON: Cervical spine CT 11/13/2019. FINDINGS: No fractures. No subluxation. Prevertebral soft tissues and the C1-C2 interval are intact. No pneumothorax. Moderate to severe degenerative disc disease again noted throughout the cervical spine. Patchy areas of sclerosis at the T1 and T2 vertebral bodies has progressed and suggest treated osteoblastic metastatic disease. Stable 4 mm sclerotic focus within the C4 vertebral body. Progressive scarlike density within the left lung apex. IMPRESSION: 1. No acute fractures within the cervical spine. 2. Osteoblastic metastatic disease as described above. ACT 112: Negative or not required by law. Electronically signed by: Blade Khan M.D. 07/20/2022 9:[address] 07/20/22 08:31 CT SCAN OF THE BRAIN WITHOUT IV CONTRAST CLINICAL HISTORY: Fall. COMPARISON STUDY: CT of the brain dated 11/14/2019. TECHNIQUE: Unenhanced axial CT scan of the brain is performed from the vertex to the skull base. A dose lowering technique was utilized adhering to the principles of ALARA. FINDINGS: Brain parenchyma: Right MCA territory encephalomalacia is unchanged and consistent with a remote infarct. There is age-related involutional change noting moderate subcortical and periventricular microangiopathic disease. There is no hemorrhage, mass effect, or evidence of acute territorial ischemia by CT criteria. A small chronic infarct is noted in the left cerebellar hemisphere. T here is a chronic lacunar infarct in the left thalamus. Pope-white matter differentiation is preserved. No extra-axial fluid collection is seen. Ventricles, sulci, cisterns: Prominent secondary to involutional change. Intracranial vasculature: There is atherosclerotic calcification of the cavernous carotid and vertebral artery. Calvarium: The skeletal structures are osteopenic. No depressed calvarial fracture is seen. Sinuses and mastoids: The visualized paranasal sinuses are clear. The mastoid air cells are well pneumatized. Orbits: The bony orbits are grossly intact. There are bilateral ocular lens implants. IMPRESSION: Chronic changes as above with no hemorrhage, mass effect, or evidence of acute territorial ischemia by CT criteria. ACT 112: Negative or not required by law. Electronically signed by: Tank Shipman M.D. 07/20/2022 9:31 AM Hip/Pelvis X-Ray 07/20/22 08:31 SINGLE VIEW PELVIS; 2 VIEWS RIGHT HIP CLINICAL HISTORY: Fall with right hip pain. FINDINGS: An AP view of the pelvis with AP and crosstable lateral views of the right hip are correlated with PET/CT dated 12/16/2019. The skeletal structures are osteopenic. There is an impacted and angulated intertrochanteric fracture of the right proximal femur. Overlying soft tissue edema is noted. The greater trochanter appears avulsed. No additional fracture is seen involving the left hip or the bony pelvis. Mild degenerative change and joint space narrowing is seen in the hips. Degenerative sclerosis is noted in the sacroiliac joints. Lumbosacral spondylosis is partially visualized. There is no bowel obstruction. Moderate fecal retention is noted throughout the visualized colon. There is atherosclerotic calcification of the femoral arteries. IMPRESSION: Impacted and angulated intertrochanteric fracture of the right proximal femur as above. Electronically signed by: Tank Shipman M.D. 07/20/2022 9:52 AM Knee X-Ray 07/20/22 08:31 XR knee LT 1 or 2V routine CLINICAL HISTORY: fall. Left knee pain. COMPARISON STUDY: None. FINDINGS: The bones are osteopenic. No acute fracture or dislocation within the left knee. Vascular calcifications are noted. Mild tricompartmental osteoarthritis. No significant knee effusion. No significant soft tissue swelling. IMPRESSION: No acute fracture or dislocation within the left knee. ACT 112: Negative or not required by law. Electronically signed by: Blade Khan M.D. 07/20/2022 9:49 AM Discharge Plan Visit Data Chief Complaint: Fall ED Provider: Sergio Waldron Discharge Problem: Closed fracture of right hip, Acute dehydration, Fall, Elevated troponin I level, Thrombocytopenia Patient Disposition: Admitted As Inpatient Discharge Instructions Interventions: ED Discharge Assessment Last Done: 07/20/22 14:00
[2022-07-20 09:15] LABS: INR 1.1 (0.9-1.1); Partial Thromboplastin Ratio 0.9; Partial Thromboplastin Time 23.6 Seconds (21.0-31.0); Prothrombin Time 11.3 Seconds (9.0-12.0)
[2022-07-20 09:26] LABS: Hematocrit (blood only) 37.7 % (34.1-44.9); Hemoglobin 12.8 g/dl (12.0-16.0); Immature Granulocytes # (auto) 0.23 K/uL (0.00-0.02); Immature Granulocytes % (auto) 2.2 %; Lymphocytes # (auto) 0.21 K/uL (1.2-3.4); Mean Corpuscular Hemoglobin 33.5 pg (25.0-34.0); Mean Corpuscular Volume 98.7 fL (80.0-100.0); Mean Platelet Volume 10.8 fL (9.4-12.3); Monocytes # (auto) 0.68 K/uL (0.24-0.82); Monocytes % (auto) 6.5 %; Neutrophils # (auto) 9.31 K/uL (1.4-6.5); Neutrophils % (auto) 89.3 %; Platelet Count 92 K/uL (130-400); Platelet Estimate Decreased (Normal); RDW Coefficient of Variation 13.2 % (11.5-14.5); RDW Standard Deviation 47.4 fL (36.4-46.3); Red Blood Count 3.82 M/uL (3.93-5.22); White Blood Count 10.43 K/ul (4.8-10.8)
[2022-07-20 09:29] LABS: Albumin Globulin Ratio 1.4 (0.9-2); Albumin Level 4.6 gm/dl (3.4-5.0); Bilirubin,Total 0.7 mg/dl (0.2-1.0); Calcium 8.8 mg/dl (8.5-10.1); Creatinine Clr Calc Pharmacy 38.4 ml/min; Est GFR (African American) 68.1 ml/min; Est GFR (Non-African American) 58.7 ml/min; Globulin 3.2 gm/dl (2.5-4.0); Potassium 3.7 mmol/L (3.5-5.1); Total Protein 7.8 gm/dl (6.0-8.3)
[2022-07-20 09:30] LABS: Troponin I High Sensitivity 15.5 pg/ml (0-14)
--- NOTE | 2022-07-20 09:32 | CT Scan Report ---
CT SCAN OF THE BRAIN WITHOUT IV CONTRAST CLINICAL HISTORY: Fall. COMPARISON STUDY: CT of the brain dated 11/14/2019. TECHNIQUE: Unenhanced axial CT scan of the brain is performed from the vertex to the skull base. A do se lowering technique was utilized adhering to the principles of ALARA. FINDINGS: Brain parenchyma: Right MCA territory encephalomalacia is unchanged and consistent with a remote infa rct. There is age-related involutional change noting moderate subcortical and periventricular microan giopathic disease. There is no hemorrhage, mass effect, or evidence of acute territorial ischemia by CT criteria. A small chronic infarct is noted in the left cerebellar hemisphere. There is a chronic l acunar infarct in the left thalamus. Pope-white matter differentiation is preserved. No extra-axial f luid collection is seen. Ventricles, sulci, cisterns: Prominent secondary to involutional change. Intracranial vasculature: There is atherosclerotic calcification of the cavernous carotid and vertebr al artery. Calvarium: The skeletal structures are osteopenic. No depressed calvarial fracture is seen. Sinuses and mastoids: The visualized paranasal sinuses are clear. The mastoid air cells are well pneu matized. Orbits: The bony orbits are grossly intact. There are bilateral ocular lens implants. IMPRESSION: Chronic changes as above with no hemorrhage, mass effect, or evidence of acute territoria l ischemia by CT criteria. ACT 112: Negative or not required by law. Electronically signed by: Tank Shipman M.D. 07/20/2022 9:31 AM
--- NOTE | 2022-07-20 09:39 | CT Scan Report ---
CERVICAL SPINE CT CT DOSE: 1441.55 mGy.cm HISTORY: Neck pain. fall TECHNIQUE: Multiaxial CT images of the cervical spine were performed and reformatted in the sagittal and coronal plane without the use of contrast. A dose lowering technique was utilized adhering to th e principles of ALARA. COMPARISON: Cervical spine CT 11/13/2019. FINDINGS: No fractures. No subluxation. Prevertebral soft tissues and the C1-C2 interval are intact. No pneumothorax. Moderate to severe degenerative disc disease again noted throughout the cervical spi ne. Patchy areas of sclerosis at the T1 and T2 vertebral bodies has progressed and suggest treated os teoblastic metastatic disease. Stable 4 mm sclerotic focus within the C4 vertebral body. Progressive scarlike density within the left lung apex. IMPRESSION: 1. No acute fractures within the cervical spine. 2. Osteoblastic metastatic disease as described above. ACT 112: Negative or not required by law. Electronically signed by: Blade Khan M.D. 07/20/2022 9:38 AM
--- NOTE | 2022-07-20 09:51 | XRay Report ---
XR knee LT 1 or 2V routine CLINICAL HISTORY: fall. Left knee pain. COMPARISON STUDY: None. FINDINGS: The bones are osteopenic. No acute fracture or dislocation within the left knee. Vascular c alcifications are noted. Mild tricompartmental osteoarthritis. No significant knee effusion. No signi ficant soft tissue swelling. IMPRESSION: No acute fracture or dislocation within the left knee. ACT 112: Negative or not required by law. Electronically signed by: Blade Khan M.D. 07/20/2022 9:49 AM
--- NOTE | 2022-07-20 09:54 | XRay Report ---
SINGLE VIEW PELVIS; 2 VIEWS RIGHT HIP CLINICAL HISTORY: Fall with right hip pain. FINDINGS: An AP view of the pelvis with AP and crosstable lateral views of the right hip are correlat ed with PET/CT dated 12/16/2019. The skeletal structures are osteopenic. There is an impacted and angu lated intertrochanteric fracture of the right proximal femur. Overlying soft tissue edema is noted. T he greater trochanter appears avulsed. No additional fracture is seen involving the left hip or the b tran pelvis. Mild degenerative change and joint space narrowing is seen in the hips. Degenerative scle rosis is noted in the sacroiliac joints. Lumbosacral spondylosis is partially visualized. There is no bowel obstruction. Moderate fecal retention is noted throughout the visualized colon. There is ather osclerotic calcification of the femoral arteries. IMPRESSION: Impacted and angulated intertrochanteric fracture of the right proximal femur as above. Electronically signed by: Tank Shipman M.D. 07/20/2022 9:52 AM
[2022-07-20] MEDS ORDERED: ONDANSETRON INJ 2 MG/ML 2 ML VIAL IV STA (10:58)
[2022-07-20] MEDS ORDERED: fentaNYL citrate 100 MCG/2 ML VIAL IV PRN (10:58)
--- NOTE | 2022-07-20 11:00 | History & Physical Report ---
Date of Service July 20, 2022 Assessment & Plan (1) Closed fracture of right hip: (2) Fall: Plan: - Admit to [facility] with tele - Check EKG and CXR for preop clearance - Insert dubose catheter and maintain, follow i/os, ordered UA and culture - Check blood cultures with fall, pt cannot remember, likely dementia but will confirm no infectious source - CT head is negative for acute findings, old remote infarct but pt does not have residual deficits. Continue asa 81 mg - Consult [facility]- Discussed with Dr. Felton, planning on OR tomorrow, will allow diet today - Hip/pelvis xray shows Impacted and angulated intertrochanteric fracture of the right proximal femur as above - Pain control and bowel regimen ordered - Will need rehab stay after admission, from home, lives alone, to assist with dc planning (3) Acute dehydration: Plan: - Cont LR x 1 bag, allow diet today then NPO at midnight - Likely due to no po intake since yesterday (4) Elevated troponin I level: Plan: - Trop 15 on admission, will trend labs - Check EKG (5) Metastatic breast cancer: Plan: - Hx of such s/p Left breast mastectomy, dx in 2014, received monthly dose of xgeva last Wednesday 07/11 as outpatient. - Follows with oncology as outpatient DVT ppx: teds, scds, no chemical prophylaxis in the setting of surgery tomorrow morning planned CODE STATUS: DNR/DNI Disposition: Patient from home, lives alone, OR surgery and likely will need rehab stay versus placement after hospitalization History of Present Illness Chief Complaint: Fall Primary Care Provider: Wu Hawkins DO This is an 82-year-old female with PMHx of l metastatic breast cancer to bone originally diagnosed in 2014, on Faslodex and Xgeva per oncology, history of hairy cell leukemia in remission, thrombocytopenia, history of CVA, Alzheimer's disease, hypertensive kidney disease with stage IIIa CKD, GERD, anxiety, hypothyroidism who presents to the ER via EMS due to fall and found to have a right hip fracture. Her step-son, Brandan is present at bedside and supports the history. The patient lives at home by herself and spent the majority of the day yesterday with him, he took her home around 3 PM. This morning her neighbor who routinely comes to her house at 7 AM with a cup of coffee noticed the door was not unlocked, therefore called the landlord who was able to unlock the door and they found the patient laying on the ground in the living room next to the couch. She states that she was unable to get up herself. Patient cannot recall when she fell or much thereafter however reports that it was dark outside. She typically walks with use of a cane, and is able to participate in ADLs without much difficulty. Her bed was made as she did not sleep in it, so it is presumed that this happened sometime last evening. Patient reports her pain is a 7/10, nursing personnel administered IV fentanyl at bedside and her pain is much improved. She has not eaten anything today or taken any of her morning medications. Brandan Flynn [phone] Allergies Allergy/AdvReac Type Severity Reaction Status Date / Time No Known Allergies Allergy Verified 07/28/21 17:25 Home Medications Medication Instructions Recorded Confirmed Type omeprazole 20 mg tablet,delayed 20 mg PO QAM 05/01/19 07/20/22 History release aspirin 81 mg tablet,delayed 81 mg PO QAM 05/02/19 07/20/22 History release (Jayson Low Dose Aspirin) levothyroxine 75 mcg tablet 75 mcg PO QAM 11/13/19 07/20/22 History acetaminophen 500 mg tablet 500 mg PO Q6H PRN Pain 01/22/20 07/20/22 History (Tylenol Extra Strength) amlodipine 5 mg tablet 5 mg PO DAILY 01/22/20 07/20/22 History calcium carbonate 600 mg-vitamin 1 cap PO BID 01/22/20 07/20/22 History D3 5 mcg (200 unit) capsule denosumab 120 mg/1.7 mL (70 mg/mL) 120 mg subcut .As directed 01/22/20 07/20/22 History subcutaneous solution Past Med/Surg History Medical History Altered mental status Anxiety Breast cancer (02/03/15) " DIAGNOSIS: 1. Left breast, invasive ductal carcinoma, grade 2, ER/NM positive, Her2-elie negative, [id number], stage IIIA Abnormal left breast mammogram Status post biopsy 02/03/2015 revealing invasive ductal carcinoma with lobular features Estrogen receptor positive, progesterone receptor positive, HER-2/elie negative Initial lumpectomy with SLN 03/08/2015 followed by modified radical mastectomy 04/12/2015 Status post completion of radiation therapy to the Left chest wall, supr aclavicular area, and axilla completed 07/20/2015 received 5940 cGy 2. Hairy cell leukemia status post chemotherapy in 2013 Chest pain CHI (closed head injury) CATALAN (dyspnea on exertion) DVT prophylaxis Elevated troponin I level Exertional chest pain Fall GERD (gastroesophageal reflux disease) Hairy cell leukemia History of CVA (cerebrovascular accident) History of radiation therapy 07/20/2015 to left chestwall HTN (hypertension) Hypothyroidism Intercostal pain Metastatic breast cancer (01/05/20) Osteoporosis Skin cancer SCC Thrombocytopenia Surgical History History of colonoscopy S/P left mastectomy With axillary lymph node dissection Family History Father Stroke Mother Stroke Brother Myocardial infarction Brother COPD (chronic obstructive pulmonary disease) Sister Colon cancer Other Hypertension Social History Smoking Status: Never smoker Second Hand Exposure: No; Hx Alcohol Use: No Hx Substance Use: No Preferred Language: Albanian Communication Ability: Effective Visual Impairment: No Limitations Hearing Ability: Hard of Hearing [place]ough[place] Required: No Beliefs That Will Affect Care: None marital status: / Current Living Situation: Alone Current Living Situation Comment: apartment current occupational status: retired 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 [employer] Feels Safe at Home: Yes caffeine: Yes (3-4 cups/day) during the past year weight has: remained stable Assistive Devices: Glasses Review of Systems Review of Systems: Constitutional: No fever, sweats or chills Eyes: No diplopia, no worsening or blurred vision ENT: normal hearing, no trouble swallowing Respiratory: No cough, sputum, dyspnea at rest or on exertion Cardiovascular: No chest pain, tightness or palpitations Abdomen: No pain, nausea, vomiting, diarrhea or constipation Musculoskeletal: R hip pain, improved s/p pain meds, otherwise no joint pain, calf pain, swelling Neurologic: No weakness, numbness/tingling, or balance problems Psychiatric: No anxiety or depression Skin: + bruising of the left arm, No rash or itch Physical Exam Physical Exam: Please refer to attending addendum. Results & Data Results & Data ([facility]) Vital Signs (Past 12 Hours) Vital Signs Temp Pulse Pulse Resp BP BP Pulse Ox 07/20/22 10:23 88 16 138/68 96 07/20/22 08:50 75 18 93 07/20/22 08:31 36.6 C 81 20 169/93 H 98 O2 Del Method 07/20/22 10:23 07/20/22 08:50 Room Air 07/20/22 08:31 Room Air Laboratory Results 07/20/22 07/20/22 07/20/22 08:52 08:52 08:52 WBC RBC Hgb Hct MCV MCH MCHC RDW Std Deviation RDW Coeff of Lisa Plt Count MPV Immature Gran % (Auto) Neut % (Auto) Lymph % (Auto) [place] % (Auto) Eos % (Auto) Baso % (Auto) Neut # (Auto) Lymph # (Auto) [place] # (Auto) Eos # (Auto) Baso # (Auto) Immature Gran # (Auto) Platelet Estimate PT 11.3 INR 1.1 APTT 23.6 PTT Ratio 0.9 Sodium 139 Potassium 3.7 Chloride 103 Carbon Dioxide 26 Anion Gap 10 BUN 27 H Creatinine 0.90 Est Cr Clr Drug Dosing 38.4 Est GFR ( Amer) 68.1 Est GFR (Non-Af Amer) 58.7 BUN/Creatinine Ratio 30.0 H Glucose 165 H Calcium 8.8 Total Bilirubin 0.7 AST 30 ALT 31 Alkaline Phosphatase 47 Troponin I High Sens 15.5 H Total Protein 7.8 Albumin 4.6 Globulin 3.2 Albumin/Globulin Ratio 1.4 Lipase 10 L SARS-CoV-2, RNA, NAAT NEGATIVE 07/20/22 08:52 WBC 10.43 RBC 3.82 L Hgb 12.8 Hct 37.7 MCV 98.7 MCH 33.5 MCHC 34.0 RDW Std Deviation 47.4 H RDW Coeff of Lisa 13.2 Plt Count 92 L MPV 10.8 Immature Gran % (Auto) 2.2 Neut % (Auto) 89.3 Lymph % (Auto) 2.0 [place] % (Auto) 6.5 Eos % (Auto) 0.0 Baso % (Auto) 0.0 Neut # (Auto) 9.31 H Lymph # (Auto) 0.21 L [place] # (Auto) 0.68 Eos # (Auto) 0.00 Baso # (Auto) 0.00 Immature Gran # (Auto) 0.23 H Platelet Estimate Decreased L PT INR APTT PTT Ratio Sodium Potassium Chloride Carbon Dioxide Anion Gap BUN Creatinine Est Cr Clr Drug Dosing Est GFR ( Amer) Est GFR (Non-Af Amer) BUN/Creatinine Ratio Glucose Calcium Total Bilirubin AST ALT Alkaline Phosphatase Troponin I High Sens Total Protein Albumin Globulin Albumin/Globulin Ratio Lipase SARS-CoV-2, RNA, NAAT Diagnostic Findings Cervical Spine CT 07/20/22 08:[address] DOSE: 1441.55 mGy.cm HISTORY: Neck pain. fall TECHNIQUE: Multiaxial CT images of the cervical spine were performed and reformatted in the sagittal and coronal plane without the use of contrast. A dose lowering technique was utilized adhering to the principles of ALARA. COMPARISON: Cervical spine CT 11/13/2019. FINDINGS: No fractures. No subluxation. Prevertebral soft tissues and the C1-C2 interval are intact. No pneumothorax. Moderate to severe degenerative disc disease again noted throughout the cervical spine. Patchy areas of sclerosis at the T1 and T2 vertebral bodies has progressed and suggest treated osteoblastic metastatic disease. Stable 4 mm sclerotic focus within the C4 vertebral body. Progressive scarlike density within the left lung apex. IMPRESSION: 1. No acute fractures within the cervical spine. 2. Osteoblastic metastatic disease as described above. ACT 112: Negative or not required by law. Electronically signed by: Blade Khan M.D. 07/20/2022 9:[address] 07/20/22 08:31 CT SCAN OF THE BRAIN WITHOUT IV CONTRAST CLINICAL HISTORY: Fall. COMPARISON STUDY: CT of the brain dated 11/14/2019. TECHNIQUE: Unenhanced axial CT scan of the brain is performed from the vertex to the skull base. A dose lowering technique was utilized adhering to the principles of ALARA. FINDINGS: Brain parenchyma: Right MCA territory encephalomalacia is unchanged and consistent with a remote infarct. There is age-related involutional change noting moderate subcortical and periventricular microangiopathic disease. There is no hemorrhage, mass effect, or evidence of acute territorial ischemia by CT criteria. A small chronic infarct is noted in the left cerebellar hemisphere. There is a chronic lacunar infarct in the left thalamus. Pope-white matter differentiation is preserved. No extra-axial fluid collection is seen. Ventricles, sulci, cisterns: Prominent secondary to involutional change. Intracranial vasculature: There is atherosclerotic calcification of the matthew nous carotid and vertebral artery. Calvarium: The skeletal structures are osteopenic. No depressed calvarial fracture is seen. Sinuses and mastoids: The visualized paranasal sinuses are clear. The mastoid air cells are well pneumatized. Orbits: The bony orbits are grossly intact. There are bilateral ocular lens implants. IMPRESSION: Chronic changes as above with no hemorrhage, mass effect, or evidence of acute territorial ischemia by CT criteria. ACT 112: Negative or not required by law. Electronically signed by: Tank Shipman M.D. 07/20/2022 9:31 AM Hip/Pelvis X-Ray 07/20/22 08:31 SINGLE VIEW PELVIS; 2 VIEWS RIGHT HIP CLINICAL HISTORY: Fall with right hip pain. FINDINGS: An AP view of the pelvis with AP and crosstable lateral views of the right hip are correlated with PET/CT dated 12/16/2019. The skeletal structures are osteopenic. There is an impacted and angulated intertrochanteric fracture of the right proximal femur. Overlying soft tissue edema is noted. The greater trochanter appears avulsed. No additional fracture is seen involving the left hip or the bony pelvis. Mild degenerative change and joint space narrowing is se en in the hips. Degenerative sclerosis is noted in the sacroiliac joints. Lumbosacral spondylosis is partially visualized. There is no bowel obstruction. Moderate fecal retention is noted throughout the visualized colon. There is atherosclerotic calcification of the femoral arteries. IMPRESSION: Impacted and angulated intertrochanteric fracture of the right proximal femur as above. Electronically signed by: Tank Shipman M.D. 07/20/2022 9:52 AM Knee X-Ray 07/20/22 08:31 XR knee LT 1 or 2V routine CLINICAL HISTORY: fall. Left knee pain. COMPARISON STUDY: None. FINDINGS: The bones are osteopenic. No acute fracture or dislocation within the left knee. Vascular calcifications are noted. Mild tricompartmental osteoarthritis. No significant knee effusion. No significant soft tissue swelling. IMPRESSION: No acute fracture or dislocation within the left knee. ACT 112: Negative or not required by law. Electronically signed by: Blade Khan M.D. 07/20/2022 9:49 AM ECG Additional Comments: 20-JUL-2022 08:42:40 [facility]-EDSTAT ROUTINE RETRIEVAL Normal sinus rhythm Possible Left atrial enlargement Borderline ECG When compared with ECG of 28-JUL-2021 13:07, T wave amplitude has decreased in Anterolateral leads 25mm/s10mm/[id number] 241CID: 10Unconfirmed Vent. rate 78 BPM NM interval 138 ms QRS duration 64 ms QT/QTc 384/437 ms Code Status & VTE Plan Code Status DNR/DNI- copies of will and power of key entry operator reviewed and discussed with the patient and Brandan at bedside. Supervising Physician Co-Signing Physician Notes Pt is a 82 y/o F with hx of metastatic breast Ca, Hypothyroidism, CKD III, thrombocytopenia, Dementia, hearing loss, HTN, hx of hairy cell leukemia, anx iety, CVA w/o residual weakness admitted for R proximal femur fracture. PE: NAD, mildly cachectic HEENT: mild dry oropharynx Cardiac: systolic murmur, normal S1/S2 Lungs: CTA, no wheezing or crackles Abd: soft, NT, ND MSk: no LE edema but the R leg is externally rotated, R hip area: mild swelling but no sign of hematoma Psych: AAOx2 (person and partial time)- same as her baseline A/P: R proximal femur fracture 2/2 mechanical fall: -pain is very controlled -CT head and C spine: no acute fracture - Ortho consulted ---- OR claudia and NPO after [place] - EKG: NSR, no ST changes, possible LAE with normal axis - trop is slightly elevated: will trend -pt has chronic thrombocytopenia with baseline plt 90-100 -does have hx of CVA but no hx of [place] -will hold aspirin -Revised cardiac index of 1 and pt is acceptable risk for surgery -Pt is DNR/DNI and pt's step son Brandan is the POA Other chronic conditions: plan as above Agree with A/P by Hermila Zhong PA-C (1) Fall Encounter type: initial encounter Qualified Code(s): W19.XXXA - Unspecified fall, initial encounter (2) Closed fracture of right hip Encounter type: initial encounter Qualified Code(s): S72.001A - Fracture of unspecified part of neck of right femur, initial encounter for closed fracture
[2022-07-20] MEDS ORDERED: LACTATED RINGER'S 1,000 ML IV SCH (12:30)
--- NOTE | 2022-07-20 13:00 | XRay Report ---
XR chest 1V portable HISTORY: preop COMPARISON: Chest 07/28/2021. FINDINGS: Mitral annulus calcifications are again noted. The heart is normal in size. There are calci fications within the aortic knob. No focal lung consolidations to suggest a pneumonia. No evidence fo r pulmonary edema. No pleural effusions. No pneumothorax. IMPRESSION: No significant change compared to the prior study. No acute process. ACT 112: Negative or not required by law. Electronically signed by: Blade Khan M.D. 07/20/2022 12:58 PM
--- NOTE | 2022-07-20 14:18 | Orthopedic Consultation ---
Date of Consultation July 20, 2022 Assessment & Plan (1) Closed fracture of right hip: Right intertrochanteric hip fracture. X-rays have been reviewed. Pending medical clearance, patient will require a right trochanteric femoral nailing. Dr. Felton is aware and has added the patient onto the surgical schedule tomorrow morning for right TFN. Patient to be n.p.o. after midnight. History of Present Illness Reason for Consultation: Right intertrochanteric hip fracture History of Present Illness Patient is an 82-year-old female with PMHx of l metastatic breast cancer to [facility] originally diagnosed in 2014, on Faslodex and Xgeva per oncology, history of hairy cell leukemia in remission, thrombocytopenia, history of CVA, Alzheimer's disease, hypertensive kidney disease with stage IIIa CKD, GERD, anxiety, hypothyroidism. Patient is accompanied by her son-in-law. Patient currently lives alone and ambulates throughout her day sometimes with an assistive device. Her son-in-law was with her yesterday for most of the day and dropped her off at home. Neighbor friend had stopped by in the morning to drop off some coffee but the patient was not answering her door. The landlord was called who was able to get the door open. They found the patient lying on the living room floor. It appears that she has been there most of the night. She complained of hip pain and was unable to get up and ambulate. She was brought to the emergency room and seen by the staff. X-rays were taken and was found that she had an intertrochanteric hip fracture of the right hip. Patient does not remember the fall. We then asked to see her for her hip fracture. Allergies Allergy/AdvReac Type Severity Reaction Status Date / Time No Known Allergies Allergy Verified 07/28/21 17:25 Home Medications Medication Instructions Recorded Confirmed Type omeprazole 20 mg tablet,delayed 20 mg PO QAM 05/01/19 07/20/22 History release aspirin 81 mg tablet,delayed 81 mg PO QAM 05/02/19 07/20/22 History release (Jayson Low Dose Aspirin) levothyroxine 75 mcg tablet 75 mcg PO QAM 11/13/19 07/20/22 History acetaminophen 500 mg tablet 500 mg PO Q6H PRN Pain 01/22/20 07/20/22 History (Tylenol Extra Strength) amlodipine 5 mg tablet 5 mg PO DAILY 01/22/20 07/20/22 History calcium carbonate 600 mg-vitamin 1 cap PO BID 01/22/20 07/20/22 History D3 5 mcg (200 unit) capsule denosumab 120 mg/1.7 mL (70 mg/mL) 120 mg subcut .As directed 01/22/20 07/20/22 History subcutaneous solution Patient History Medical History Altered mental status Anxiety Breast cancer (02/03/15) " DIAGNOSIS: 1. Left breast, invasive ductal carcinoma, grade 2, ER/KS positive, Her2-elie negative, [id number], stage IIIA Abnormal left breast mammogram Status post biopsy 02/03/2015 revealing invasive ductal carcinoma with lobular features Estrogen receptor positive, progesterone receptor positive, HER-2/elie negative Initial lumpectomy with SLN 03/08/2015 followed by modified radical mastectomy 04/12/2015 Status post completion of radiation therapy to the Left chest wall, supraclavicular area, and axilla completed 07/20/2015 received 5940 cGy 2. Hairy cell leukemia status post chemotherapy in 2013 Chest pain CHI (closed head injury) CATALAN (dyspnea on exertion) DVT prophylaxis Elevated troponin I level Exertional chest pain Fall GERD (gastroesophageal reflux disease) Hairy cell leukemia History of CVA (cerebrovascular accident) History of radiation therapy 07/20/2015 to left chestwall HTN (hypertension) Hypothyroidism Intercostal pain Metastatic breast cancer (01/05/20) Osteoporosis Skin cancer SCC Thrombocytopenia Surgical History History of colonoscopy S/P left mastectomy With axillary lymph node dissection Family History Father Stroke Mother Stroke Brother Myocardial infarction Brother COPD (chronic obstructive pulmonary disease) Sister Colon cancer Other Hypertension Social History Smoking Status: Never smoker Second Hand Exposure: No; Hx Alcohol Use: No Hx Substance Use: No Preferred Language: Chinese Communication Ability: Effective Visual Impairment: No Limitations Hearing Ability: Hard of Hearing 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 Does answer most questions appropriately. No acute distress. On examination of her right lower extremity, the extremity is shortened and externally rotated compared to the left. She has multiple abrasions noted on her lower extremity below the knee and at the knee. Nothing actively bleeding. No range of motion is done at this time with the right hip secondary to fracture. She does not complain of discomfort on palpation of the knee. There is no effusion noted at this time. She is able to DF/PF her right ankle. No obvious injury on the left lower extremity and she is nontender at the hip, knee, left ankle. Multiple abrasions noted on her left knee as well. No noticeable effusion. Range of motion appears to be intact. Upper extremities are unaffected although she has multiple bruises on the forearms and elbows. She denies pain at the shoulders, elbows, and wrists and range of motion appears to be intact. Distal pulses are equal bilaterally of the upper extremities. There is no gross motor or sensory loss at this time. Results & Data ([facility]) Vital Signs (Past 12 Hours) Vital Signs Temp Pulse Pulse Resp BP BP BP 07/20/22 13:00 93 H 15 129/58 L 07/20/22 11:37 88 23 154/76 H 154/76 H 07/20/22 10:23 88 16 138/68 07/20/22 08:50 75 18 07/20/22 08:31 36.6 C 81 20 169/93 H Pulse Ox O2 Del Method 07/20/22 13:00 94 Room Air 07/20/22 11:37 94 Room Air 07/20/22 10:23 96 07/20/22 08:50 93 Room Air 07/20/22 08:31 98 Room Air Laboratory Results Laboratory Results WBC 10.43 K/ul (4.8-10.8) 07/20/22 08:52 RBC 3.82 M/uL (3.93-5.22) L 07/20/22 08:52 Hgb 12.8 g/dl (12.0-16.0) 07/20/22 08:52 Hct 37.7 % (34.1-44.9) 07/20/22 08:52 MCV 98.7 fL (80.0-100.0) 07/20/22 08:52 MCH 33.5 pg (25.0-34.0) 07/20/22 08:52 MCHC 34.0 g/dL (32.0-36.0) 07/20/22 08:52 RDW Std Deviation 47.4 fL (36.4-46.3) H 07/20/22 08:52 RDW Coeff of Lisa 13.2 % (11.5-14.5) 07/20/22 08:52 Plt Count 92 K/uL (130-400) L 07/20/22 08:52 MPV 10.8 fL (9.4-12.3) 07/20/22 08:52 Immature Gran % (Auto) 2.2 % 07/20/22 08:52 Neut % (Auto) 89.3 % 07/20/22 08:52 Lymph % (Auto) 2.0 % 07/20/22 08:52 [place] % (Auto) 6.5 % 07/20/22 08:52 Eos % (Auto) 0.0 % 07/20/22 08:52 Baso % (Auto) 0.0 % 07/20/22 08:52 Neut # (Auto) 9.31 K/uL (1.4-6.5) H 07/20/22 08:52 Lymph # (Auto) 0.21 K/uL (1.2-3.4) L 07/20/22 08:52 [place] # (Auto) 0.68 K/uL (0.24-0.82) 07/20/22 08:52 Eos # (Auto) 0.00 K/uL (0-0.50) 07/20/22 08:52 Baso # (Auto) 0.00 K/uL (0-0.2) 07/20/22 08:52 Immature Gran # (Auto) 0.23 K/uL (0.00-0.02) H 07/20/22 08:52 Platelet Estimate Decreased (Normal) L 07/20/22 08:52 PT 11.3 Seconds (9.0-12.0) 07/20/22 08:52 INR 1.1 (0.9-1.1) 07/20/22 08:52 APTT 23.6 Seconds (21.0-31.0) 07/20/22 08:52 PTT Ratio 0.9 07/20/22 08:52 Sodium 139 mmol/L (136-145) 07/20/22 08:52 Potassium 3.7 mmol/L (3.5-5.1) 07/20/22 08:52 Chloride 103 mmol/L (98-107) 07/20/22 08:52 Carbon Dioxide 26 mmol/L (21-32) 07/20/22 08:52 Anion Gap 10 (3-11) 07/20/22 08:52 BUN 27 mg/dl (6-23) H 07/20/22 08:52 Creatinine 0.90 mg/dl (0.6-1.2) 07/20/22 08:52 Est Cr Clr Drug Dosing 38.4 ml/min 07/20/22 08:52 Est GFR ( Amer) 68.1 ml/min 07/20/22 08:52 Est GFR (Non-Af Amer) 58.7 ml/min 07/20/22 08:52 BUN/Creatinine Ratio 30.0 (10-20) H 07/20/22 08:52 Glucose 165 mg/dl (70-99(Fasting)) H 07/20/22 08:52 Calcium 8.8 mg/dl (8.5-10.1) 07/20/22 08:52 Total Bilirubin 0.7 mg/dl (0.2-1.0) 07/20/22 08:52 AST 30 U/L (13-39) 07/20/22 08:52 ALT 31 U/L (7-52) 07/20/22 08:52 Alkaline Phosphatase 47 U/L (34-104) 07/20/22 08:52 Troponin I High Sens 15.5 pg/ml (0-14) H 07/20/22 08:52 Total Protein 7.8 gm/dl (6.0-8.3) 07/20/22 08:52 Albumin 4.6 gm/dl (3.4-5.0) 07/20/22 08:52 Globulin 3.2 gm/dl (2.5-4.0) 07/20/22 08:52 Albumin/Globulin Ratio 1.4 (0.9-2) 07/20/22 08:52 Lipase 10 U/L (11-82) L 07/20/22 08:52 SARS-CoV-2, RNA, NAAT NEGATIVE (NEGATIVE) 07/20/22 08:[address] 07/20/22 08:[address] DOSE: 1441.55 mGy.cm HISTORY: Neck pain. fall TECHNIQUE: Multiaxial CT images of the cervical spine were performed and reformatted in the sagittal and coronal plane without the use of contrast. A dose lowering technique was utilized adhering to the principles of ALARA. COMPARISON: Cervical spine CT 11/13/2019. FINDINGS: No fractures. No subluxation. Prevertebral soft tissues and the C1-C2 interval are intact. No pneumothorax. Moderate to severe degenerative disc disease again noted throughout the cervical spine. Patchy areas of sclerosis at the T1 and T2 vertebral bodies has progressed and suggest treated osteoblastic metastatic disease. Stable 4 mm sclerotic focus within the C4 vertebral body. Progressive scarlike density within the left lung apex. IMPRESSION: 1. No acute fractures within the cervical spine. 2. Osteoblastic metastatic disease as described above. ACT 112: Negative or not required by law. Electronically signed by: Blade Khan M.D. 07/20/2022 9:[address] 07/20/22 08:31 CT SCAN OF THE BRAIN WITHOUT IV CONTRAST CLINICAL HISTORY: Fall. COMPARISON STUDY: CT of the brain dated 11/14/2019. TECHNIQUE: Unenhanced axial CT scan of the brain is performed from the vertex to the skull base. A dose lowering technique was utilized adhering to the principles of ALARA. FINDINGS: Brain parenchyma: Right MCA territory encephalomalacia is unchanged and consistent with a remote infarct. There is age-related involutional change noting moderate subcortical and periventricular microangiopathic disease. There is no hemorrhage, mass effect, or evidence of acute territorial ischemia by CT criteria. A small chronic infarct is noted in the left cerebellar hemisphere. There is a chronic lacunar infarct in the left thalamus. Pope-white matter differentiation is preserved. No extra-axial fluid collection is seen. Ventricles, sulci, cisterns: Prominent secondary to involutional change. Intracranial vasculature: There is atherosclerotic calcification of the cavernous carotid and vertebral artery. Calvarium: The skeletal structures are osteopenic. No depressed calvarial fracture is seen. Sinuses and mastoids: The visualized paranasal sinuses are clear. The mastoid air cells are well pneumatized. Orbits: The bony orbits are grossly intact. There are bilateral ocular lens implants. IMPRESSION: Chronic changes as above with no hemorrhage, mass effect, or evidence of acute territorial ischemia by CT criteria. ACT 112: Negative or not required by law. Electronically signed by: Tank Shipman M.D. 07/20/2022 9:31 AM Hip/Pelvis X-Ray 07/20/22 08:31 SINGLE VIEW PELVIS; 2 VIEWS RIGHT HIP CLINICAL HISTORY: Fall with right hip pain. FINDINGS: An AP view of the pelvis with AP and crosstable lateral views of the right hip are correlated with PET/CT dated 12/16/2019. The skeletal structures are osteopenic. There is an impacted and angulated intertrochanteric fracture of the right proximal femur. Overlying soft tissue edema is noted. The greater trochanter appears avulsed. No additional fracture is seen involving the left hip or the bony pelvis. Mild degenerative change and joint space narrowing is seen in the hips. Degenerative sclerosis is noted in the sacroiliac joints. Lumbosacral spondylosis is partially visualized. There is no bowel obstruction. Moderate fecal retention is noted throughout the visualized colon. There is atherosclerotic calcification of the femoral arteries. IMPRESSION: Impacted and angulated intertrochanteric fracture of the right pr oximal femur as above. Electronically signed by: Tank Shipman M.D. 07/20/2022 9:52 AM Knee X-Ray 07/20/22 08:31 XR knee LT 1 or 2V routine CLINICAL HISTORY: fall. Left knee pain. COMPARISON STUDY: None. FINDINGS: The bones are osteopenic. No acute fracture or dislocation within the left knee. Vascular calcifications are noted. Mild tricompartmental oste oarthritis. No significant knee effusion. No significant soft tissue swelling. IMPRESSION: No acute fracture or dislocation within the left knee. ACT 112: Negative or not required by law. Electronically signed by: Blade Khan M.D. 07/20/2022 9:49 AM Chest X-Ray 07/20/22 12:16 XR chest 1V portable HISTORY: preop COMPARISON: Chest 07/28/2021. FINDINGS: Mitral annulus calcifications are again noted. The heart is normal in size. There are calcifications within the aortic knob. No focal lung consolidations to suggest a pneumonia. No evidence for pulmonary edema. No pleural effusions. No pneumothorax. IMPRESSION: No significant change compared to the prior study. No acute process. ACT 112: Negative or not required by law. Electronically signed by: Blade Khan M.D. 07/20/2022 12:58 PM (1) Closed fracture of right hip Encounter type: initial encounter Qualified Code(s): S72.001A - Fracture of unspecified part of neck of right femur, initial encounter for closed fracture
[2022-07-20] MEDS ORDERED: MoRPHine SULFATE 2 MG/ML CARP IV PRN (14:41)
[2022-07-20] MEDS ORDERED: MAGNESIUM HYDROXIDE SUSP 30 ML UDC PO PRN (14:41)
[2022-07-20] MEDS ORDERED: bisacodyL 10 MG SUPP PR PRN (14:41)
[2022-07-20] MEDS ORDERED: ONDANSETRON INJ 2 MG/ML 2 ML VIAL IV PRN (14:41)
[2022-07-20] MEDS ORDERED: NALOXONE HCL 0.4 MG/1 ML VIAL/CARP IV PRN (14:41)
[2022-07-20] MEDS ORDERED: ACETAMINOPHEN 500 MG TAB PO PRN (14:41)
[2022-07-20 15:22] LABS: Appearance Urine Clear (Clear); Bacteria Urine Automated 4+ (Negative); Bilirubin Urine Negative (Negative); Blood Urine Trace (Negative); Color Urine Yellow; Epithelial Cell Urine Auto 20-30 /lpf (0-5); Glucose Urine UA 1+ (Negative); Ketones Urine Negative (Negative); Leukocyte Esterase Urine Trace (Negative); Nitrite Urine Positive (Negative); RBC Urine Automated 0-4 /hpf (0-4); Specific Gravity Urine 1.015 (1.000-1.030); Urobilinogen Urine Negative (Negative); pH Urine 7.5 (4.5-7.5)
[2022-07-20 15:23] LABS: Protein Urine Trace (Negative)
[2022-07-20] MEDS: ACETAMINOPHEN 500 MG TAB PO SCH ×2 (16:01→22:10)
[2022-07-20] MEDS: CALCIUM 600MG + VIT D 400 IU TAB PO SCH (21:34)
[2022-07-20] MEDS: DOCUSATE SODIUM/SENNA 50/8.6MG TAB PO SCH (21:35)
[2022-07-21] MEDS: LEVOTHYROXINE SODIUM 75 MCG TABLET PO SCH (06:00)
[2022-07-21] MEDS ORDERED: ceFAZolin 2000MG 2,000 MG/15 ML SYR IV SCH (06:00)
[2022-07-21] MEDS: PANTOprazole 40 MG TAB PO SCH (06:01)
[2022-07-21] MEDS: ACETAMINOPHEN 500 MG TAB PO SCH ×3 (06:01→21:43)
[2022-07-21] MEDS ORDERED: fentaNYL citrate 100 MCG/2 ML VIAL ONE ×2 (06:49→08:27)
[2022-07-21] MEDS ORDERED: PROPOFOL IV EMULSION 10 MG/ML 20 ML VIAL IV ONE (06:49)
[2022-07-21] MEDS ORDERED: ePHEDrine sulfate 50 MG/ML AMP ONE (06:55)
[2022-07-21] MEDS ORDERED: PHENYLEPHRINE HCL 10 MG/ML VIAL ONE (06:55)
[2022-07-21] MEDS ORDERED: BUPIVACAINE 0.25% 30 ML VIAL ONE (07:23)
[2022-07-21 07:27] LABS: Hematocrit (blood only) 32.3 % (34.1-44.9); Hemoglobin 10.9 g/dl (12.0-16.0); Mean Corpuscular Hemoglobin 33.6 pg (25.0-34.0); Mean Corpuscular Hgb Conc 33.7 g/dL (32.0-36.0); Mean Corpuscular Volume 99.7 fL (80.0-100.0); Mean Platelet Volume 10.7 fL (9.4-12.3); Platelet Count 64 K/uL (130-400); Platelet Estimate Decreased (Normal); RDW Coefficient of Variation 13.2 % (11.5-14.5); RDW Standard Deviation 48.7 fL (36.4-46.3); Red Blood Count 3.24 M/uL (3.93-5.22); White Blood Count 7.86 K/ul (4.8-10.8)
[2022-07-21 07:33] LABS: BUN Creatinine Ratio 32.1 (10-20); Creatinine Clr Calc Pharmacy 41.7 ml/min; Est GFR (Non-African American) 63.8 ml/min; Potassium 3.9 mmol/L (3.5-5.1)
--- NOTE | 2022-07-21 07:40 | History & Physical Bridge Note ---
Date of Service July 21, 2022 History & Physical Bridge Note I have examined the patient, reviewed the History & Physical and in the interval since the performance of the History & Physical I have noted the following changes of clinical significance: no changes noted. Met with the patient. Had a lengthy discussion regarding risk benefits medical complications of right hip cephalomedullary nail. These include but are not limited to: Infection, neurovascular injury, DVT, nonunion, malunion, hardware failure, and need for future surgery. After reviewing these she elected proceed with surgical intervention and written consent was obtained.
[2022-07-21] MEDS ORDERED: ceFAZolin 330 MG/ML 1 GM VIAL ONE ×2 (08:08)
[2022-07-21] MEDS ORDERED: ONDANSETRON INJ 2 MG/ML 2 ML VIAL ONE (08:27)
--- NOTE | 2022-07-21 08:30 | Anesthesiology Consultation ---
Date of Service July 21, 2022 Assessment & Plan Chart Review Chart Review: Acceptable Risk for Surgery and Patient NOT seen in Pre Admission Testing Consults Requested none ASA ASA3 Proposed Anesthesia Anesthesia Type: General Risk / Benefits Reviewed With: PT / POA / Parent / Guardian, Accepts Plan and Informed Consent Obtained Additional Comments: PT is an DNR. WANTS DNR TO BE CONTINUED. No CPR, vasoactive drugs, mechanical ventilation of defibrillation. Discussed and documented History Surgery Operation Date: 07/21/22 07:30 Proposed Procedures p Right Hip Troch Nail - Derek Felton, DO Height/Weight Height: 5 ft 4 in Weight: 53 kg Allergies Allergy/AdvReac Type Severity Reaction Status Date / Time No Known Allergies Allergy Verified 07/28/21 17:25 Medications Home Medications Medication Instructions Recorded Confirmed Last Taken omeprazole 20 mg tablet,delayed 20 mg PO QAM 05/01/19 07/20/22 Unknown release aspirin 81 mg tablet,delayed 81 mg PO QAM 05/02/19 07/20/22 05/01/19 release (Jayson Low Dose Aspirin) levothyroxine 75 mcg tablet 75 mcg PO QAM 11/13/19 07/20/22 Unknown acetaminophen 500 mg tablet 500 mg PO Q6H PRN Pain 01/22/20 07/20/22 07/28/21 15:30 (Tylenol Extra Strength) 1000 mg amlodipine 5 mg tablet 5 mg PO DAILY 01/22/20 07/20/22 Unknown calcium carbonate 600 mg-vitamin 1 cap PO BID 01/22/20 07/20/22 Unknown D3 5 mcg (200 unit) capsule denosumab 120 mg/1.7 mL (70 mg/mL) 120 mg subcut .As directed 01/22/20 07/20/22 06/28/21 subcutaneous solution Active Medications Generic Name Dose Route Start Last Admin Trade Name Freq PRN Reason Stop Dose Admin Acetaminophen 1,000 mg 07/20/22 14:45 07/21/22 06:01 Acetaminophen 500 Mg Tab PO 08/19/22 14:44 1,000 mg Q8H ANGELIQUE Administration Calcium/Vitamin D 1 tab 07/20/22 21:00 07/20/22 21:34 Calcium 600mg + Vit D 400 Iu Tab PO 08/19/22 20:59 1 tab BID ANGELIQUE Administration Fentanyl Citrate 50 mcg 07/20/22 10:58 07/20/22 11:35 Fentanyl Citrate 100 Mcg/2 Ml Vial IV 08/03/22 10:57 50 mcg Q15M PRN Administration Pain Levothyroxine Sodium 75 mcg 07/21/22 06:30 07/21/22 06:00 Levothyroxine Sodium 75 Mcg Tablet PO 08/20/22 06:29 75 mcg DAILYBB ANGELIQUE Administration Pantoprazole Sodium 20 mg 07/21/22 06:30 07/21/22 06:01 Pantoprazole 40 Mg Tab PO 08/20/22 06:29 20 mg DAILYBB ANGELIQUE Administration Senna/Docusate Sodium 2 tab 07/20/22 21:00 07/20/22 21:35 Docusate Sodium/Senna 50/8.6mg Tab PO 08/19/22 20:59 Not Given HS ANGELIQUE NPO Date Last Intake of Fluids: 07/20/22 Time Last Intake of Fluids: 17:00 Date Last Intake of Solids: 07/13/22 Time Last Intake of Solids: 17:00 Past Medical History Medical History Altered mental status Anxiety Breast cancer (02/03/15) " DIAGNOSIS: 1. Left breast, invasive ductal carcinoma, grade 2, ER/DE positive, Her2-elie negative, [id number], stage IIIA Abnormal left breast mammogram Status post biopsy 02/03/2015 revealing invasive ductal carcinoma with lobula r features Estrogen receptor positive, progesterone receptor positive, HER-2/elie negative Initial lumpectomy with SLN 03/08/2015 followed by modified radical mastectomy 04/12/2015 Status post completion of radiation therapy to the Left chest wall, supraclavicular area, and axilla completed 07/20/2015 received 5940 cGy 2. Hairy cell leukemia status post chemotherapy in 2013 Chest pain CHI (closed head injury) CATALAN (dyspnea on exertion) DVT prophylaxis Elevated troponin I level Exertional chest pain Fall GERD (gastroesophageal reflux disease) Hairy cell leukemia History of CVA (cerebrovascular accident) History of radiation therapy 07/20/2015 to left chestwall HTN (hypertension) Hypothyroidism Intercostal pain Metastatic breast cancer (01/05/20) Osteoporosis Skin cancer SCC Thrombocytopenia Exercise / Class Metabolic Activity III < 4 Walking/Shop/Light housework Past Family History Family History Father Stroke Mother Stroke Brother Myocardial infarction Brother COPD (chronic obstructive pulmonary disease) Sister Colon cancer Other Hypertension Past Surgical History Surgical History History of colonoscopy S/P left mastectomy With axillary lymph node dissection Past Anesthesia History No Hx of Anesthesia Complications and No Family Hx of Anesthesia Complications History of PONV No Hx of PONV and No Hx of Motion Sickness Social History Smoking Status: Former smoker tobacco type: cigarettes Do You Dip or Chew Tobacco: No Hx Alcohol Use: No Hx Substance Use: No Review of Systems Constitutional: as per Subjective / HPI Eyes: as per Subjective / HPI Respiratory: as per Subjective / HPI Cardiovascular: as per Subjective / HPI Integumentary: + sores (sacral decubitus (covered/bandage)) Neurologic: as per Subjective / HPI Psychiatric: as per Subjective / HPI Endocrine: as per Subjective / HPI hypothryroidism Hematologic / Lymphatic: + easy bruising Allergy / Immunological: as per Subjective / HPI Physical Exam Vital Signs Last Vital Signs Temp 37.5 C 07/21/22 07:00 Pulse 86 07/21/22 07:00 Resp 18 07/21/22 07:00 BP 130/70 07/21/22 07:00 Pulse Ox 93 07/21/22 07:00 O2 Del Method 07/21/22 07:00 ENMT Mouth: no TMJ abnormality Thyromental Distance: > or= 3.5 Finger Breadths Mallampati Class: II Neck normal visual inspection Respiratory normal respiratory effort Cardiovascular Rate/Rhythm: regular rate and regular rhythm Musculoskeletal Extremities: extremities normal to inspection Neurologic * Movement limitd by hip FX Testing Laboratory Results 07/21/22 06:52 07/21/22 06:52 PT 11.3 Seconds (9.0-12.0) 07/20/22 08:52 INR 1.1 (0.9-1.1) 07/20/22 08:52 APTT 23.6 Seconds (21.0-31.0) 07/20/22 08:52 Urine Color Yellow 07/20/22 10:35 Urine Appearance Clear (Clear) 07/20/22 10:35 Urine pH 7.5 (4.5-7.5) 07/20/22 10:35 Ur Specific [place] 1.015 (1.000-1.030) 07/20/22 10:35 Urine Protein Trace (Negative) H 07/20/22 10:35 Urine Glucose (UA) 1+ (Negative) H 07/20/22 10:35 Urine Ketones Negative (Negative) 07/20/22 10:35 Urine Nitrite Positive (Negative) A 07/20/22 10:35 Ur Leukocyte Esterase Trace (Negative) H 07/20/22 10:35 Urine WBC (Auto) 1-5 /hpf (0-5) 07/20/22 10:35 Urine RBC (Auto) 0-4 /hpf (0-4) 07/20/22 10:35 U Hyaline Cast (Auto) 1-5 /lpf (0-5) 07/20/22 10:35 U Epithel Cells (Auto) 20-30 /lpf (0-5) H 07/20/22 10:35 Urine Bacteria (Auto) 4+ (Negative) H 07/20/22 10:35 Blood Type A Positive 07/20/22 15:46 Antibody Screen NEGATIVE 07/20/22 15:46
[2022-07-21] MEDS ORDERED: HYDROmorphone INJ 2 MG/ML SYR/VIAL IV PRN (08:31)
[2022-07-21] MEDS ORDERED: fentaNYL citrate 100 MCG/2 ML VIAL IV PRN (08:31)
[2022-07-21] MEDS ORDERED: ATROPINE SULFATE 0.1 MG/ML 10ML SYR IV PRN (08:31)
[2022-07-21] MEDS ORDERED: ePHEDrine sulfate 50 MG/ML AMP IV PRN (08:31)
--- NOTE | 2022-07-21 08:58 | Fluoroscopy Report ---
FL hip RT 2-3V HISTORY: 82 years-old Female RT TROCH NAIL acute fracture of the right proximal femur COMPARISON: Pelvis and hip radiographs 07/20/2022 TECHNIQUE: 4 spot fluoroscopic images of the right hip were obtained utilizing 67.5 seconds fluorosco py time FINDINGS: Status post placement of an intratrochanteric nail with medullary celeste fixating the acute intertrochan teric fracture. There is improved near anatomic alignment. Expected postoperative soft tissue swellin g with deep tissue air. IMPRESSION: Fluoroscopic assistance as above. ACT 112: Negative or not required by law. The above report was generated using voice recognition software. It may contain grammatical, syntax o r spelling errors. Electronically signed by: Derek Jorge M.D. 07/21/2022 8:56 AM
--- NOTE | 2022-07-21 09:37 | Post Operative Brief Note ---
Immediate Post Op Note v1 Date of Surgery July 21, 2022 Pre & Post Diagnosis Operation Date: 07/21/22 07:30 Pre-Op Diagnosis: Right intertrochanteric hip fracture. Post-Op Diagnosis: Right intertrochanteric hip fracture. I identified the patient and participated in the time-out.: Yes Procedure Operation Date: 07/21/22 07:30 Actual Procedures p Right Hip Troch Nail(Right) - Derek Felton DO Surgeon Derek Felton DO [employer] Systems Instructor None Estimated Blood Loss 50 Findings Consistent with Post-Op Diagnosis See dictation Drains Reynolds Catheter Complications None
--- NOTE | 2022-07-21 09:40 | Anesthesiology Progress Note ---
Date of Service July 21, 2022 Anesthesia Post Procedure Vital Signs Vital Signs: Temp Pulse Pulse Resp BP BP Pulse Ox 07/21/22 09:25 80 17 152/68 H 93 07/21/22 09:15 82 22 120/92 100 07/21/22 09:06 36.2 C L 77 20 139/70 100 07/21/22 07:00 07/21/22 07:00 37.5 C 86 18 130/70 93 07/20/22 19:35 07/20/22 22:06 37.0 C 89 17 134/74 94 07/20/22 14:34 37.8 C H 89 20 175/78 H 92 07/20/22 13:00 93 H 15 129/58 L 94 07/20/22 11:37 88 23 154/76 H 154/76 H 94 07/20/22 10:23 88 16 138/68 96 O2 Del Method O2 Flow Rate 07/21/22 09:25 Oxymask 4 07/21/22 09:15 Oxymask 6 07/21/22 09:06 Oxymask 6 07/21/22 07:00 Room Air 07/21/22 07:00 Room Air 07/20/22 19:35 Room Air 07/20/22 22:06 Room Air 07/20/22 14:34 Room Air 07/20/22 13:00 Room Air 07/20/22 11:37 Room Air 07/20/22 10:23 Transfer of Care Handoff Completed per policy Notes Mental Status: alert / awake / arousable and participated in evaluation Patient Amnestic to Procedure: Yes Nausea / Vomiting: adequately controlled Pain: adequately controlled Airway Patency, RR, SpO2: stable & adequate BP & HR: stable & adequate Hydration State: stable & adequate Anesthetic Complications: no major complications apparent and Pt Satisfied with anesthetic care
--- NOTE | 2022-07-21 09:42 | Operative Report ---
Post Operative Report Pre & Post Diagnosis Operation Date: 07/21/22 07:30 Pre-Op Diagnosis: Right intertrochanteric hip fracture. Post-Op Diagnosis: Right intertrochanteric hip fracture. I identified the patient and participated in the time-out.: Yes Procedure Operation Date: 07/21/22 07:30 Actual Procedures p Right Hip Troch Nail(Right) - Derek Felton DO Surgeon Derek Felton DO Delicatessen Manager None Estimated Blood Loss 50 Findings Consistent with Post-Op Diagnosis See dictation Specimens None Complications None Indications 82-year-old female who presented to the emergency department after sustaining a ground-level fall onto her right hip. Immediately afterward she noted pain and deformity and was unable to ambulate. Radiographs were obtained which demonstrated displaced right intertrochanteric femur fracture. She was admitted to medical service with orthopedics being consulted for operative management. Preoperatively I met with the patient we had a lengthy discussion regarding risk benefits and potential complications of right hip cephalomedullary nail to treat her intertrochanteric femur fracture. Risk include but are not limited to: Infection, neurovascular injury, DVT, nonunion, malunion, hardware failure and need for future surgery. After reviewing these she elected to proceed with surgical intervention and written consent was obtained. Description of Procedure Implants: Synthes TFNA 11 mm x 170 mm 130 degree, 90 mm TFNA fenestrated screw, 5 mm x 38 mm stardrive locking screw Patient was appropriate identified in the preoperative holding area and the right lower extremity was marked. Patient received antibiotics per protocol. She was then taken back to the operative suite where she received general anesthesia. She was then transferred over to the manual fracture table. Using the assistance of C-arm fluoroscopy her fracture was reduced to near anatomic alignment. She was then prepped and draped in the standard orthopedic fashion and timeout was then performed. A 3 cm incision overlying the superior aspect of the trochanter was then made. Incision was carried out through skin subcutaneous tissue and gluteal fascia. A threaded guidewire was then inserted into the tip of the trochanter and advanced into the medullary canal. Its position was confirmed on AP and lateral fluoroscopy. Opening canal reamer was then used to open up the canal proximally. An 11 mm x 170 mm TFN a was then inserted into the medullary canal and the guidewire was then removed. Proximal outrigger was then attached and incision was made for lag screw through skin subcutaneous tissue and IT band fascia. A threaded guidewire was then inserted for the lag screw and advanced through the lateral cortex into the center of the femoral head. It was advanced to just beneath the subchondral bone. Position was confirmed on AP and lateral fluoroscopy and length was then measured. A lateral cortical reamer was used to open the cortex followed by a tapered reamer set to 90 mm. A 90 mm fenestrated lag screw was then inserted and compressed. The device was then locked statically at the proximal aspect. Attention was then turned to the distal interlock. Triple sleeve guide was attached and incision was made through skin subcutaneous tissue and IT band fascia. Drill was then used to drill bicortically and a 5 mm x 38 mm locking screw was then inserted. Proximal outrigger was then removed and final radiographs were obtained demonstrating good reduction of the fracture and position of the implant. Wounds were then copiously irrigated using normal saline solution. Deep fascia was closed using 0 Vicryl. 30 cc of quarter percent Marcaine was then injected into the subcutaneous tissue. Subcutaneous tissue was then closed using 2-0 Vicryl and dipti were used to close the skin. Sterile dressing of Xeroform 4 x 4 gauze and Tegaderm was then placed over the incision sites. The patient tolerated the procedure well and was taken to recovery room in hem odynamically stable condition. I attest to the content of the Intraoperative Record and any orders documented therein. Any exceptions are noted below.
[2022-07-21] MEDS: CALCIUM 600MG + VIT D 400 IU TAB PO SCH ×2 (11:17→21:44)
[2022-07-21] MEDS: amLODIPine BESYLATE 5 MG TAB PO SCH (11:18)
--- NOTE | 2022-07-21 11:23 | Hospitalist Progress Note ---
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 This was managed with IVF (4) UTI (urinary tract infection): Plan: UA suggestive of UTI UCX - GNR Though patient does not report urinary symptoms at this time. She does not recall much of what led to fall. Hence, will treat UTI Ceftriaxone IV (5) Elevated troponin I level: Plan: Mildly elevated Denies any chest pain (6) Metastatic breast cancer: Plan: Hx of breast cancer s/p Left breast mastectomy, dx in 2014, received monthly dose of xgeva last Wednesday 07/11 as outpatient. Follows with oncology as outpatient DVT ppx: Lovenox sq CODE STATUS: DNR/DNI Admission and Anticipated Discharge Date Admission Date: July 20, 2022 Subjective Patient seen and examined on return from OR Patient was sleeping but arousable Oriented to person, place and year. Reports only mild right hip pain Denied any chest pain, cough, SOB, nausea, vomiting, abd pain, diarrhea Physical Exam Constitutional: + well hydrated; no acute distress Elderly woman Eyes: PERRL, conjunctivae normal, anicteric sclerae ENMT: external ear and nose normal, oropharynx normal Respiratory: normal respiratory effort, lungs clear to auscultation Cardiovascular: Rate/Rhythm: regular rate and regular rhythm S1 S2 Gastrointestinal (Abdomen): normal bowel sounds, soft, nontender, no hepatosplenomegaly Musculoskeletal: Clean dressing over surgical site No pedal edema Neurologic: PERRL, EOMI, accommodation nl, no face palsy, no dysarthria Results & Data Results & Data ([facility]) Vital Signs (Past 12 Hours) Vital Signs Temp Pulse Pulse Resp BP Pulse Ox O2 Del Method 07/21/22 11:15 36.5 C 80 16 146/73 H 92 Room Air 07/21/22 10:44 77 16 148/80 H 100 Nasal Cannula 07/21/22 10:15 36.5 C 83 18 153/78 H 100 Nasal Cannula 07/21/22 09:45 77 20 150/72 H 94 Nasal Cannula 07/21/22 09:35 36.5 C 83 21 137/89 96 Nasal Cannula 07/21/22 09:25 80 17 152/68 H 93 Oxymask 07/21/22 09:15 82 22 120/92 100 Oxymask 07/21/22 09:06 36.2 C L 77 20 139/70 100 Oxymask 07/21/22 07:00 Room Air 07/21/22 07:00 37.5 C 86 18 130/70 93 Room Air O2 Flow Rate 07/21/22 11:15 07/21/22 10:44 2 07/21/22 10:15 2 07/21/22 09:45 3 07/21/22 09:35 3 07/21/22 09:25 4 07/21/22 09:15 6 07/21/22 09:06 6 07/21/22 07:00 07/21/22 07:00 Laboratory Results Abnormal lab results 07/20/22 07/20/22 07/20/22 Range/Units 10:35 15:14 18:36 RBC (3.93-5.22) M/uL Hgb (12.0-16.0) g/dl Hct (34.1-44.9) % RDW Std Deviation (36.4-46.3) fL Plt Count (130-400) K/uL Platelet Estimate (Normal) BUN (6-23) mg/dl BUN/Creatinine Ratio (10-20) Calcium (8.5-10.1) mg/dl Troponin I High Sens 15.8 H 22.1 H (0-14) pg/ml Urine Protein Trace H (Negative) Urine Glucose (UA) 1+ H (Negative) Urine Blood Trace H (Negative) Urine Nitrite Positive A (Negative) Ur Leukocyte Esterase Trace H (Negative) U Epithel Cells (Auto) 20-30 H (0-5) /lpf Urine Bacteria (Auto) 4+ H (Negative) 07/21/22 07/21/22 Range/Units 06:52 06:52 RBC 3.24 L (3.93-5.22) M/uL Hgb 10.9 L (12.0-16.0) g/dl Hct 32.3 L (34.1-44.9) % RDW Std Deviation 48.7 H (36.4-46.3) fL Plt Count 64 L (130-400) K/uL Platelet Estimate Decreased L (Normal) BUN 27 H (6-23) mg/dl BUN/Creatinine Ratio 32.1 H (10-20) Calcium 8.0 L (8.5-10.1) mg/dl Troponin I High Sens (0-14) pg/ml Urine Protein (Negative) Urine Glucose (UA) (Negative) Urine Blood (Negative) Urine Nitrite (Negative) Ur Leukocyte Esterase (Negative) U Epithel Cells (Auto) (0-5) /lpf Urine Bacteria (Auto) (Negative) (1) Closed fracture of right hip Encounter type: initial encounter Qualified Code(s): S72.001A - Fracture of unspecified part of neck of right femur, initial encounter for closed fracture (2) Fall Encounter type: initial encounter Qualified Code(s): W19.XXXA - Unspecified fall, initial encounter
[2022-07-21] MEDS ORDERED: ceFAZolin 2000MG 2,000 MG/15 ML SYR IV ONE (12:00)
[2022-07-21] MEDS: cefTRIAXone SODIUM 1,000 MG in DEXTROSE 5% 50 ML IV SCH (12:29)
[2022-07-21] MEDS: DOCUSATE SODIUM/SENNA 50/8.6MG TAB PO SCH (21:43)
--- NOTE | 2022-07-21 23:14 | Electrocardiogram Report ---
Test Reason : Blood Pressure : / mmHG Vent. Rate : 078 BPM Atrial Rate : 078 BPM P-R Int : 138 ms QRS Dur : 064 ms QT Int : 384 ms P-R-T Axes : 078 018 070 degrees QTc Int : 437 ms Normal sinus rhythm Possible Left atrial enlargement Borderline ECG When compared with ECG of 28-JUL-2021 13:07, T wave amplitude has decreased in Anterolateral leads Confirmed by Krishna Velasco ([id number]) on 07/21/2022 11:14:17 PM Referred By: Confirmed By:Krishna Velasco
[2022-07-22] MEDS: PANTOprazole 40 MG TAB PO SCH (05:51)
[2022-07-22] MEDS: LEVOTHYROXINE SODIUM 75 MCG TABLET PO SCH (05:51)
[2022-07-22] MEDS: ACETAMINOPHEN 500 MG TAB PO SCH ×3 (05:51→21:49)
[2022-07-22 07:35] LABS: BUN Creatinine Ratio 25.9 (10-20); Creatinine Clr Calc Pharmacy 41.2 ml/min; Est GFR (African American) 72.9 ml/min; Est GFR (Non-African American) 62.9 ml/min; Potassium 3.9 mmol/L (3.5-5.1)
[2022-07-22 07:44] LABS: Hemoglobin 9.7 g/dl (12.0-16.0); Mean Corpuscular Hemoglobin 33.8 pg (25.0-34.0); Mean Corpuscular Hgb Conc 33.4 g/dL (32.0-36.0); Mean Platelet Volume 11.4 fL (9.4-12.3); Platelet Count 54 K/uL (130-400); RDW Coefficient of Variation 13.1 % (11.5-14.5); RDW Standard Deviation 48.5 fL (36.4-46.3); Red Blood Count 2.87 M/uL (3.93-5.22); White Blood Count 6.55 K/ul (4.8-10.8)
[2022-07-22] MEDS: ENOXAPARIN INJ 40 MG/0.4 ML SYR SQ SCH (07:55)
[2022-07-22] MEDS: traMADol HCL 50 MG TABLET PO PRN (07:55)
[2022-07-22] MEDS: CALCIUM 600MG + VIT D 400 IU TAB PO SCH ×2 (07:55→21:49)
[2022-07-22] MEDS: amLODIPine BESYLATE 5 MG TAB PO SCH (07:55)
[2022-07-22 08:24] LABS: Immature Granulocytes # (auto) 0.08 K/uL (0.00-0.02); Immature Granulocytes % (auto) 1.2 %; Lymphocytes # (auto) 0.48 K/uL (1.2-3.4); Lymphocytes % (auto) 7.3 %; Monocytes # (auto) 0.64 K/uL (0.24-0.82); Monocytes % (auto) 9.8 %; Neutrophils # (auto) 5.35 K/uL (1.4-6.5); Neutrophils % (auto) 81.7 %; Platelet Estimate Decreased (Normal)
--- NOTE | 2022-07-22 10:19 | Orthopedic Progress Note ---
Date of Service July 22, 2022 Assessment & Plan (1) Closed fracture of right hip: Plan: 82-year-old female status post right hip cephalomedullary nail postoperative day #1 Weight-bear as tolerated right lower extremity PT/OT Pain control DVT prophylaxis Medical management Diaper primary team Stable from orthopedic standpoint. Patient will likely require placement. We will sign off at this time please call if any questions Admission and Anticipated Discharge Date Admission Date: July 20, 2022 Subjective Patient seen and examined, no acute events overnight, pain well controlled. Physical Exam Constitutional: General: No distress, alert oriented person place and time Musculoskeletal: Right lower extremity -Diet soft and compressible -Dressings clean dry and intact -Sensation intact to light touch femoral/saphenous/superficial peroneal nerve/deep peroneal nerve/tibial/sural nerve distributions -Fires tibialis anterior/extensor hallucis longus/gastrocsoleus complex -Palpable dorsalis pedis and posterior tibial pulses with good cap refill Results & Data ([facility]) Vital Signs (Past 12 Hours) Vital Signs Temp Pulse Pulse Resp BP BP Pulse Ox 07/22/22 07:10 07/22/22 08:28 36.6 C 82 15 142/60 H 95 07/22/22 07:51 37.4 C 82 16 108/63 91 07/22/22 02:41 36.8 C 78 16 156/76 H 94 07/21/22 22:15 36.9 C 77 18 125/68 95 O2 Del Method O2 Flow Rate 07/22/22 07:10 Nasal Cannula 1 07/22/22 08:28 Nasal Cannula 2 07/22/22 07:51 Nasal Cannula 1 07/22/22 02:41 Nasal Cannula 2.0 07/21/22 22:15 Nasal Cannula 2.0 (1) Closed fracture of right hip Encounter type: initial encounter Qualified Code(s): S72.001A - Fracture of unspecified part of neck of right femur, initial encounter for closed fracture
--- NOTE | 2022-07-22 11:09 | Hospitalist Progress Note ---
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 Rehab recommended Will continue lovenox for DVT ppx. However, will monitor her platelet count while on lovenox and hold her home ASA Anemia likely due to blood loss + dilutional. Hb 9.7 today. Monitor (3) Acute dehydration: Plan: Was dehydrated on presentation This was managed with IVF Resolved (4) UTI (urinary tract infection): Plan: UA suggestive of UTI UCX - E coli Though patient does not report urinary symptoms at this time. She does not recall much of what led to fall. Continue ceftriaxone Plan to deescalate tomorrow (5) Elevated troponin I level: Plan: Mildly elevated Denies any chest pain (6) Metastatic breast cancer: Plan: Hx of breast cancer s/p Left breast mastectomy, dx in 2014, received monthly dose of xgeva last Wednesday 07/11 as outpatient. Follows with oncology as outpatient DVT ppx: Lovenox sq CODE STATUS: DNR/DNI Called son and updated him Admission and Anticipated Discharge Date Admission Date: July 20, 2022 Subjective Patient seen and examined Reports right hip pain is well controlled Denied any chest pain, cough, SOB Denied any nausea, vomiting, abd pain, diarrhea Physical Exam Constitutional: + well hydrated; no acute distress Eyes: PERRL, conjunctivae normal, anicteric sclerae ENMT: external ear and nose normal, oropharynx normal Respiratory: normal respiratory effort, lungs clear to auscultation Cardiovascular: Rate/Rhythm: regular rate and regular rhythm S1 S2 Gastrointestinal (Abdomen): normal bowel sounds, soft, nontender, no hepatosplenomegaly Musculoskeletal: Clean dressing over right hip Neurologic: PERRL, EOMI, accommodation nl, no face palsy, no dysarthria Psychiatric: Orientation: alert, oriented to person, oriented to place and cooperative; + not oriented to time Genitourinary: Reynolds in situ Results & Data Results & Data ([facility]) Vital Signs (Past 12 Hours) Vital Signs Temp Pulse Pulse Resp BP BP Pulse Ox 10/30/22 07:10 07/22/22 08:28 36.6 C 82 15 142/60 H 95 07/22/22 07:51 37.4 C 82 16 108/63 91 07/22/22 02:41 36.8 C 78 16 156/76 H 94 O2 Del Method O2 Flow Rate 07/22/22 07:10 Nasal Cannula 1 07/22/22 08:28 Nasal Cannula 2 07/22/22 07:51 Nasal Cannula 1 07/22/22 02:41 Nasal Cannula 2.0 Laboratory Results Abnormal lab results 07/22/22 07/22/22 Range/Units 05:27 05:27 RBC 2.87 L (3.93-5.22) M/uL Hgb 9.7 L (12.0-16.0) g/dl Hct 29.0 L (34.1-44.9) % MCV 101.0 H (80.0-100.0) fL RDW Std Deviation 48.5 H (36.4-46.3) fL Plt Count 54 L (130-400) K/uL Lymph # (Auto) 0.48 L (1.2-3.4) K/uL Immature Gran # (Auto) 0.08 H (0.00-0.02) K/uL Platelet Estimate Decreased L (Normal) BUN/Creatinine Ratio 25.9 H (10-20) Calcium 8.0 L (8.5-10.1) mg/dl (1) Closed fracture of right hip Encounter type: initial encounter Qualified Code(s): S72.001A - Fracture of unspecified part of neck of right femur, initial encounter for closed fracture (2) Fall Encounter type: initial encounter Qualified Code(s): W19.XXXA - Unspecified fall, initial encounter
[2022-07-22] MEDS: cefTRIAXone SODIUM 1,000 MG in DEXTROSE 5% 50 ML IV SCH (12:10)
[2022-07-22] MEDS: DOCUSATE SODIUM/SENNA 50/8.6MG TAB PO SCH (21:49)
[2022-07-23] MEDS: PANTOprazole 40 MG TAB PO SCH (05:56)
[2022-07-23] MEDS: ACETAMINOPHEN 500 MG TAB PO SCH ×3 (05:56→22:11)
[2022-07-23] MEDS: LEVOTHYROXINE SODIUM 75 MCG TABLET PO SCH (05:56)
--- NOTE | 2022-07-23 07:33 | Orthopedic Progress Note ---
Date of Service July 23, 2022 Assessment & Plan (1) Closed fracture of right hip: Plan: 82-year-old female status post right hip cephalomedullary nail postoperative day #2 Weight-bear as tolerated right lower extremity PT/OT Pain control DVT prophylaxis Medical management Stable from orthopedic standpoint. Patient will likely require placement. We will sign off at this time please call if any questions. DC instructions placed in EMR Admission and Anticipated Discharge Date Admission Date: July 20, 2022 Subjective Postoperative day 2 status post right TFN Patient sleeping upon entering the room. Easily awoken but she does go back to sleep fairly quickly. Little bit somnolent this morning. No overt complaints. She appears comfortable. Physical Exam Physical Exam: Dressings are clean, dry, and intact. Minimal swelling. No e rythema noted. Calves are soft and appear nontender. Neurovascular appears intact. Results & Data ([facility]) Vital Signs (Past 12 Hours) Vital Signs Temp Pulse Resp BP Pulse Ox O2 Del Method O2 Flow Rate 07/22/22 21:55 36.9 C 75 16 132/69 96 Nasal Cannula 1 (1) Closed fracture of right hip Encounter type: initial encounter Qualified Code(s): S72.001A - Fracture of unspecified part of neck of right femur, initial encounter for closed fracture
[2022-07-23 07:41] LABS: Hematocrit (blood only) 29.2 % (34.1-44.9); Hemoglobin 9.7 g/dl (12.0-16.0); Mean Corpuscular Hemoglobin 33.4 pg (25.0-34.0); Mean Corpuscular Hgb Conc 33.2 g/dL (32.0-36.0); Mean Corpuscular Volume 100.7 fL (80.0-100.0); Mean Platelet Volume 11.6 fL (9.4-12.3); Platelet Count 69 K/uL (130-400); RDW Standard Deviation 47.9 fL (36.4-46.3); White Blood Count 6.19 K/ul (4.8-10.8)
[2022-07-23 07:47] LABS: BUN Creatinine Ratio 42.3 (10-20); Calcium 8.6 mg/dl (8.5-10.1); Creatinine Clr Calc Pharmacy 44.9 ml/min; Est GFR (African American) 80.9 ml/min; Est GFR (Non-African American) 69.8 ml/min; Potassium 3.8 mmol/L (3.5-5.1)
[2022-07-23] MEDS: ENOXAPARIN INJ 40 MG/0.4 ML SYR SQ SCH (09:10)
[2022-07-23] MEDS: CALCIUM 600MG + VIT D 400 IU TAB PO SCH ×2 (09:11→20:13)
[2022-07-23] MEDS: amLODIPine BESYLATE 5 MG TAB PO SCH (09:12)
[2022-07-23] MEDS: cefTRIAXone SODIUM 1,000 MG in DEXTROSE 5% 50 ML IV SCH (11:19)
--- NOTE | 2022-07-23 12:40 | Hospitalist Progress Note ---
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 Rehab recommended Will continue lovenox for DVT ppx. However, will continue to monitor her platelet count while on lovenox and hold her home ASA Anemia likely due to blood loss + dilutional. Hb remains stable at 9.7 today. Monitor Incentive spirometry encouraged. Wean off oxygen (3) Acute dehydration: Plan: Was dehydrated on presentation This was managed with IVF Resolved (4) UTI (urinary tract infection): Plan: UA suggestive of UTI UCX - E coli Though patient does not report urinary symptoms at this time. She does not recall much of what led to fall. Deescalate to cefdinir to complete treatment (5) Elevated troponin I level: Plan: Mildly elevated Denies any chest pain (6) Metastatic breast cancer: Plan: Hx of breast cancer s/p Left breast mastectomy, dx in 2014, received monthly dose of xgeva last Wednesday 07/11 as outpatient. Follows with oncology as outpatient DVT ppx: Lovenox sq CODE STATUS: DNR/DNI Awaiting placement Admission and Anticipated Discharge Date Admission Date: July 20, 2022 Subjective Patient seen and examined Reports right hip pain is well controlled. Has pain only with movement Denied any chest pain, cough, SOB Denied any nausea, vomiting, abd pain, diarrhea Denied dysuria, freq, urgency Physical Exam Constitutional: + well hydrated; no acute distress Eyes: PERRL, conjunctivae normal, anicteric sclerae ENMT: external ear and nose normal, oropharynx normal Respiratory: normal respiratory effort, lungs clear to auscultation Cardiovascular: Rate/Rhythm: regular rate and regular rhythm S1 S2 Gastrointestinal (Abdomen): normal bowel sounds, soft, nontender, no hepatosplenomegaly Musculoskeletal: Clean dressing over surgical site Neurologic: PERRL, EOMI, accommodation nl, no face palsy, no dysarthria Psychiatric: Orientation: alert, oriented to person, oriented to place and cooperative; + not oriented to time Results & Data Results & Data ([facility]) Vital Signs (Past 12 Hours) Vital Signs Temp Pulse Resp BP Pulse Ox O2 Del Method O2 Flow Rate 07/23/22 08:09 36.8 C 91 H 16 115/68 91 Nasal Cannula 2 Laboratory Results Abnormal lab results 07/23/22 07/23/22 Range/Units 06:08 06:08 RBC 2.90 L (3.93-5.22) M/uL Hgb 9.7 L (12.0-16.0) g/dl Hct 29.2 L (34.1-44.9) % MCV 100.7 H (80.0-100.0) fL RDW Std Deviation 47.9 H (36.4-46.3) fL Plt Count 69 L (130-400) K/uL BUN 33 H (6-23) mg/dl BUN/Creatinine Ratio 42.3 H (10-20) (1) Closed fracture of right hip Encounter type: initial encounter Qualified Code(s): S72.001A - Fracture of unspecified part of neck of right femur, initial encounter for closed fracture (2) Fall Encounter type: initial encounter Qualified Code(s): W19.XXXA - Unspecified fall, initial encounter
[2022-07-23] MEDS: DOCUSATE SODIUM/SENNA 50/8.6MG TAB PO SCH (20:13)
[2022-07-24] MEDS: LEVOTHYROXINE SODIUM 75 MCG TABLET PO SCH (05:56)
[2022-07-24] MEDS: PANTOprazole 40 MG TAB PO SCH (05:56)
[2022-07-24] MEDS: ACETAMINOPHEN 500 MG TAB PO SCH ×3 (05:56→23:40)
[2022-07-24] MEDS: CEFDINIR 300 MG CAP PO SCH ×2 (09:13→20:18)
[2022-07-24] MEDS: amLODIPine BESYLATE 5 MG TAB PO SCH (09:14)
[2022-07-24] MEDS: CALCIUM 600MG + VIT D 400 IU TAB PO SCH ×2 (09:14→20:18)
[2022-07-24 10:02] LABS: Hemoglobin 9.6 g/dl (12.0-16.0); Mean Corpuscular Hemoglobin 32.9 pg (25.0-34.0); Mean Corpuscular Hgb Conc 33.1 g/dL (32.0-36.0); Mean Corpuscular Volume 99.3 fL (80.0-100.0); Mean Platelet Volume 12.2 fL (9.4-12.3); Platelet Count 74 K/uL (130-400); RDW Standard Deviation 46.5 fL (36.4-46.3); Red Blood Count 2.92 M/uL (3.93-5.22); White Blood Count 4.57 K/ul (4.8-10.8)
[2022-07-24] MEDS: ENOXAPARIN INJ 40 MG/0.4 ML SYR SQ SCH (10:11)
[2022-07-24] MEDS: ENOXAPARIN INJ 30 MG/0.3 ML SYR SQ SCH (11:25)
--- NOTE | 2022-07-24 15:25 | Hospitalist Progress Note ---
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 Rehab recommended Will continue lovenox for DVT ppx. However, will continue to monitor her platelet count while on lovenox and hold her home ASA Acute anemia likely due to blood loss + dilutional. Hb remains stable at 9.76today. Monitor (3) Acute dehydration: Plan: Was dehydrated on presentation This was managed with IVF Resolved (4) UTI (urinary tract infection): Plan: UA suggestive of UTI UCX - E coli Though patient does not report urinary symptoms at this time. She does not recall much of what led to fall. Continue cefdinir to complete treatment (5) Elevated troponin I level: Plan: Mildly elevated Denies any chest pain (6) Metastatic breast cancer: Plan: Hx of breast cancer s/p Left breast mastectomy, dx in 2014, received monthly dose of xgeva last Wednesday 07/11 as outpatient. Follows with oncology as outpatient DVT ppx: Lovenox sq CODE STATUS: DNR/DNI Awaiting placement Admission and Anticipated Discharge Date Admission Date: July 20, 2022 Subjective Patient seen and examined Reports right hip pain is well controlled. Denied any new complaints Currently on room air Denied any chest pain, cough, SOB Denied any nausea, vomiting, abd pain, diarrhea Denied dysuria, freq, urgency Physical Exam Constitutional: + well hydrated; no acute distress Eyes: PERRL, conjunctivae normal, anicteric sclerae ENMT: external ear and nose normal, oropharynx normal Respiratory: normal respiratory effort, lungs clear to auscultation Cardiovascular: Rate/Rhythm: regular rate and regular rhythm S1 S2 Gastrointestinal (Abdomen): normal bowel sounds, soft, nontender, no hepatosplenomegaly Musculoskeletal: Clean surgical site with dipti Neurologic: PERRL, EOMI, accommodation nl, no face palsy, no dysarthria Psychiatric: Orientation: alert, oriented to person, oriented to place and cooperative; + not oriented to time Results & Data Results & Data ([facility]) Vital Signs (Past 12 Hours) Vital Signs Temp Pulse Resp BP Pulse Ox Pulse Ox O2 Del Method 07/24/22 08:00 94 07/24/22 10:41 Room Air 07/24/22 09:11 91 H 137/56 L 07/24/22 07:02 37.3 C 81 20 133/71 91 Room Air O2 Del Method 07/24/22 08:00 Room Air 07/24/22 10:41 07/24/22 09:11 07/24/22 07:02 Laboratory Results Abnormal lab results 07/24/22 Range/Units 08:58 WBC 4.57 L (4.8-10.8) K/ul RBC 2.92 L (3.93-5.22) M/uL Hgb 9.6 L (12.0-16.0) g/dl Hct 29.0 L (34.1-44.9) % RDW Std Deviation 46.5 H (36.4-46.3) fL Plt Count 74 L (130-400) K/uL (1) Fall Encounter type: initial encounter Qualified Code(s): W19.XXXA - Unspecified fall, initial encounter (2) Closed fracture of right hip Encounter type: initial encounter Qualified Code(s): S72.001A - Fracture of unspecified part of neck of right femur, initial encounter for closed fracture
[2022-07-24] MEDS: traMADol HCL 50 MG TABLET PO PRN (20:17)
[2022-07-24] MEDS: DOCUSATE SODIUM/SENNA 50/8.6MG TAB PO SCH (20:18)
[2022-07-25] MEDS: LEVOTHYROXINE SODIUM 75 MCG TABLET PO SCH (06:06)
[2022-07-25] MEDS: ACETAMINOPHEN 500 MG TAB PO SCH ×3 (06:06→23:32)
[2022-07-25] MEDS: PANTOprazole 40 MG TAB PO SCH (06:06)
[2022-07-25] MEDS: CALCIUM 600MG + VIT D 400 IU TAB PO SCH ×2 (08:57→20:40)
[2022-07-25] MEDS: CEFDINIR 300 MG CAP PO SCH ×2 (08:57→20:41)
[2022-07-25] MEDS: amLODIPine BESYLATE 5 MG TAB PO SCH (08:57)
[2022-07-25 09:27] LABS: Hematocrit (blood only) 27.5 % (34.1-44.9); Hemoglobin 9.1 g/dl (12.0-16.0); Mean Corpuscular Hemoglobin 33.6 pg (25.0-34.0); Mean Corpuscular Hgb Conc 33.1 g/dL (32.0-36.0); Mean Corpuscular Volume 101.5 fL (80.0-100.0); Mean Platelet Volume 11.8 fL (9.4-12.3); Platelet Count 79 K/uL (130-400); RDW Standard Deviation 47.8 fL (36.4-46.3); Red Blood Count 2.71 M/uL (3.93-5.22); White Blood Count 3.53 K/ul (4.8-10.8)
[2022-07-25] MEDS: ENOXAPARIN INJ 30 MG/0.3 ML SYR SQ SCH (10:11)
--- NOTE | 2022-07-25 17:00 | Hospitalist Progress Note ---
Date of Service July 25, 2022 Assessment & Plan (1) Closed fracture of right hip: (2) Fall: Plan: On presentation, patient did not remember much about the mechanics of her fall CT head was negative for acute findings but noted old remote infarct Hip/pelvis xray shows Impacted and angulated intertrochanteric fracture of the right proximal femur Possibly age related osteoporosis with pathological fracture POD # 4 S/P Right Hip Troch Nail(Right) No postop complication Pain is controlled Continue PT/OT eval Hgb 9.1 today Continue fall precaution Continue monitor closely Waiting for placement to rehab (3) Acute dehydration: Plan: Was dehydrated on presentation This was managed with IVF Resolved (4) UTI (urinary tract infection): Plan: UA suggestive of UTI UCX - E coli Though patient does not report urinary symptoms at this time. She does not recall much of what led to fall. Continue cefdinir to complete treatment (5) Elevated troponin I level: Plan: Mildly elevated Denies any chest pain (6) Metastatic breast cancer: Plan: Hx of breast cancer s/p Left breast mastectomy, dx in 2014, received monthly dose of xgeva last Wednesday 07/11 as outpatient. Follows with oncology as outpatient DVT ppx: Lovenox sq CODE STATUS: DNR/DNI Awaiting for placement Admission and Anticipated Discharge Date Admission Date: July 20, 2022 Subjective Patient was seen and examined for right hip fracture Lying in bed with no acute distress Pt said that pain is controlled She said that she walked with PT today Denies any chest pain, palpitation, dizziness and SOB Review of Systems Review of Systems: All systems reviewed & are unremarkable except as noted in Subjective Physical Exam Physical Exam: General- No acute distress Head- atraumatic Eyes- PERRL, EOMI, ENT- oropharynx clear Neck- supple, no JVD Lungs- clear to auscultation Heart- regular rhythm; no murmur Abdomen- normal bowel sounds, soft, nontender Extremities- no calf tenderness Neuro- alert, awake; PERRL, EOMI; no facial palsy; no dysarthria Skin- warm & dry Results & Data Results & Data ([facility]) Vital Signs (Past 12 Hours) Vital Signs Temp Pulse Resp BP BP Pulse Ox Pulse Ox 07/25/22 15:32 36.7 C 75 16 115/70 95 07/25/22 09:36 07/25/22 08:00 92 11/02/22 08:54 86 144/64 H 07/25/22 07:17 36.8 C 77 16 117/65 95 O2 Del Method O2 Del Method 07/25/22 15:32 Room Air 07/25/22 09:36 Room Air 07/25/22 08:00 Room Air 07/25/22 08:54 07/25/22 07:17 Room Air (1) Fall Encounter type: initial encounter Qualified Code(s): W19.XXXA - Unspecified fall, initial encounter (2) Closed fracture of right hip Encounter type: initial encounter Qualified Code(s): S72.001A - Fracture of unspecified part of neck of right femur, initial encounter for closed fracture
[2022-07-25] MEDS: DOCUSATE SODIUM/SENNA 50/8.6MG TAB PO SCH (20:41)
[2022-07-26] MEDS: PANTOprazole 40 MG TAB PO SCH (06:14)
[2022-07-26] MEDS: LEVOTHYROXINE SODIUM 75 MCG TABLET PO SCH (06:14)
[2022-07-26] MEDS: ACETAMINOPHEN 500 MG TAB PO SCH (06:15)
[2022-07-26 07:54] VITALS: BP 116/63; PULSE 77; TEMP 97.5; O2SAT 95
[2022-07-26] MEDS: CALCIUM 600MG + VIT D 400 IU TAB PO SCH (09:12)
[2022-07-26] MEDS: ENOXAPARIN INJ 30 MG/0.3 ML SYR SQ SCH (09:12)
[2022-07-26] MEDS: amLODIPine BESYLATE 5 MG TAB PO SCH (09:12)
[2022-07-26] MEDS: CEFDINIR 300 MG CAP PO SCH (09:12)
--- NOTE | 2022-07-26 10:10 | Discharge Summary ---
Date of Service July 26, 2022 Admission HPI Per Admitting Provider This is an 82-year-old female with PMHx of l metastatic breast cancer to bone originally diagnosed in 2014, on Faslodex and Xgeva per oncology, history of hairy cell leukemia in remission, thrombocytopenia, history of CVA, Alzheimer's disease, hypertensive kidney disease with stage IIIa CKD, GERD, anxiety, hypothyroidism who presents to the ER via EMS due to fall and found to have a right hip fracture. Her step-son, Brandan is present at bedside and supports the history. The patient lives at home by herself and spent the majority of the day yesterday with him, he took her home around 3 PM. This morning her neighbor who routinely comes to her house at 7 AM with a cup of coffee noticed the door was not unlocked, therefore called the landlord who was able to unlock the door and they found the patient laying on the ground in the living room next to the couch. She states that she was unable to get up herself. Patient cannot recall when she fell or much thereafter however reports that it was dark outside. She typically walks with use of a cane, and is able to participate in ADLs without much difficulty. Her bed was made as she did not sleep in it, so it is presumed that this happened sometime last evening. Patient reports her pain is a 7/10, nursing personnel administered IV fentanyl at bedside and her pain is much improved. She has not eaten anything today or taken any of her morning medicati ons. Brandan Flynn [phone] Admission Exam Per Admitting Provider NAD, mildly cachectic HEENT: mild dry oropharynx Cardiac: systolic murmur, normal S1/S2 Lungs: CTA, no wheezing or crackles Abd: soft, NT, ND MSk: no LE edema but the R leg is externally rotated, R hip area: mild swelling but no sign of hematoma Psych: AAOx2 (person and partial time)- same as her baseline Principal Diagnosis Fall, hip fracture Discharge Exam Gen: WD/WN, NAD, lying in bed, A&Ox person and place not to time, pleasant HEENT: Normocephalic, atraumatic, conjunctivae moist, sclerae anicteric, mucous membranes moist Lung: Clear to Auscultation bilaterally, no wheezes/rales/rhonchi Heart: Regular rate, regular rhythm, no murmurs, rubs, or gallops Abdomen: Soft, NT, ND +BS x 4 Extremities: + Surgical site c/d/i. No edema Skin: Warm, no rash Discharge Data Allergies Allergy/AdvReac Type Severity Reaction Status Date / Time No Known Allergies Allergy Verified 07/28/21 17:25 Consultations 07/20/22 10:58 ED Decision to Admit Stat 07/20/22 11:51 Consult Orthopedic Surgery Routine Procedures Performed Operation Date: 07/21/22 07:30 Actual Procedures p Right Hip Troch Nail(Right) - Derek Felton, DO Ordered Studies 07/20/22 08:31 CT cervical spine wo con Stat CT head/brain wo con Stat 07/21/22 07:30 FL hip RT 2-3V Routine Hospital Course (1) Closed fracture of right hip: (2) Fall: (3) Acute dehydration: (4) UTI (urinary tract infection): (5) Elevated troponin I level: (6) Metastatic breast cancer: Plan This is an 82-year-old female with PMHx of l metastatic breast cancer to bone originally diagnosed in 2014, on Faslodex and Xgeva per oncology, history of hairy cell leukemia in remission, thrombocytopenia, history of CVA, Alzheimer's disease, hypertensive kidney disease with stage IIIa CKD, GERD, anxiety, hypoth yroidism who presents to the ER via EMS due to fall and found to have a right hip fracture. On presentation, patient did not remember much about the mechanics of her fall. CT head was negative for acute findings but noted old remote infarct. Hip/pelvis xray shows impacted and angulated intertrochanteric fracture of the right proximal femur. Patient underwent R hip trochanteric nailing by Dr. Felton on 07/22/22. No post-op complications. Comfortable at rest. Hgb stable at 9.1 yesterday with repeat CBC today still pending. Continue SQ Lovenox 30mg daily per ortho for VTE for 4 weeks total (through 08/19). Continue fall precautions, therapy at SNF. Urine culture on admission reveals pansensitive E. coli. Complete cefdinir antibiotic treatment for total of 7 days. Has history of breast cancer status post left breast mastectomy diagnosed in 2014. Continue oncology follow-up as outpatient. Patient comfortable and hemodynamically stable at time of discharge. Total Time Total Time Spent Total Time Spent (In Minutes): 50 Discharge Plan Discharge Items Patient Disposition: Transfer [facility] Fac Reason For Visit: HIP FRACTURE Discharge Diagnosis: hip fracture Activity: Per Instructions section Weightbearing: Right weightbearing Weightbearing Comment: as tolerated with walker Non-emergency contact: Surgeon Call non-emergency contact if: you have any medication questions, your pain is not controlled, your temperature is above 101.5, your wound has increased redness and your wound has increased drainage Follow-up/Referrals: Wu Hawkins DO [Primary Care Provider] - Derek Felton DO [Surgeon] - (Follow up with Dr Felton in 2 weeks from the day of your surgery for your first post operative visit.) Diet: Heart Healthy Kal Attending Provider Instructions: You were admitted for right hip fracture after fall Status post right hip trochanteric nailing on 07/22/[address] Felton Continue 30 mg subcu Lovenox at discharge (through 08/19) but will continue to monitor platelet count while on Lovenox and hold home ASA. Recommend checking weekly CBC Pain medication as needed per orthopedic surgery Found to have E. coli UTI on urine culture. Complete cefdinir course. Has history of metastatic breast cancer diagnosed in 2014. Continue to follow with oncology RECOMMENDATIONS FOR FOLLOW-UP: Follow up with Dr. Felton in 2 weeks from the day of your surgery for your first post operative visit. Continue monitoring platelets and hgb while on SQ Lovenox. OTHER INSTRUCTIONS: Seek medical attention if you have: * temperature above 101 * chest pain or trouble breathing * abdominal pain, nausea, vomiting * diarrhea, dark stools or bloody stools * any unanswered questions or concerns Call 911 if symptoms are severe. Please take good care of yourself. Call if you have any questions or problems. You can reach a [facility] hospitalist on duty at [facility] 24 hours a day by calling [phone]. [employer] Provider Instructions: [facility] DISCHARGE INSTRUCTIONS: HIP FRACTURE SELF CARE INSTRUCTIONS: A. You are to ambulate with a walker or crutches for approximately 6 weeks. B. You are WEIGHT BEARING TOLERATED on your operative lower extremity for at least 6 weeks. C. Wear low heeled shoes with non-slip soles D. Be sure that your floors are free of things that could trip you throw rugs, electrical cords, and small objects. Avoid wet and waxed floors, especially with crutches/walker/cane. E. Try to walk several times a day with rest periods between. F. You may shower 48 hours after surgery and get the incision area wet, but DO NOT soak or submerge incision area in water. (No baths, swimming pools, hot tubs) G. You may have a large, band-aid like dressing over your incision (Aquacel). This will remain on your incision for 7 days, and then can be removed. You CAN shower with this on. If incision is leaking through the dressing, please call the office . H. Do NOT apply soap or any ointment/lotions directly over incision. I. You may use ice as needed to operative site. SPECIAL CARE INSTRUCTIONS: VERY IMPORTANT TO READ AND REVIEW A. You may be at risk for phlebitis or blood clots. a. Wear surgical stockings (MELLISA hose) for 2 weeks after surgery to improve circulation and reduce swelling. b. Take LOVENOX 30mg SQ DAILY for 4 weeks or as directed. This is your blood thinner. B. There are a few signs you need to watch for after you are home. Call [facility] at [phone] if you experience any of the following: a. If you have a temperature of 101 degrees or higher. b. Sudden increase in pain in your hip not relieved by rest or pain medication. c. Any fluid or drainage from the incision; redness of the incision. d. Shortness of breath or chest pain.. C. Call your physician if: a. Temperature is greater than 101 degrees (F). b. Pain is not relieved by prescribed pain medications. c. Increase drainage or redness from incision. d. Unanswered questions or concerns. D. Pain Medication: a. You will be prescribed pain medication upon d ischarge that should last till your first post-operative appointment. b. If you experience nausea and/or skin rash, discontinue this medication and contact our office for an alternative medication. c. Caution- narcotic pain medication can cause constipation. FOLLOW UP VISIT: Please call [facility] at [phone] to schedule a follow up appointment 10-14 days from the date of your surgery date. Pending Studies at Discharge: No Stand-Alone Forms: My [facility] Skilled Items Patient informed of condition?: Yes DNR: Yes Discharge Level of Care: Skilled Communicable Disease: No Discharge Prognosis: Stable Lines: None Urinary Catheter: No Medications and DC Order Prescriptions: New enoxaparin [Lovenox] 30 mg/0.3 mL Syringe 30 mg subcut Q24H Qty: 7.5 0RF Rx Instructions: Give once daily through 08/19 cefdinir 300 mg Capsule 300 mg PO BID Qty: 9 0RF Rx Instructions: Continue twice daily until course complete. Continued amlodipine 5 mg tablet 5 mg PO DAILY Qty: 30 0RF acetaminophen [Tylenol Extra Strength] 500 mg tablet 500 mg PO Q6H PRN (Reason: Pain) Qty: 60 0RF levothyroxine 75 mcg tablet 75 mcg PO QAM Qty: 30 0RF Rx Instructions: TAKE THIS MEDICATION AT LEAST 30 MINUTES BEFORE BREAKFAST OR ANY OTHER MEDICATION calcium carbonate-vitamin D3 600 mg calcium- 200 unit capsule 1 cap PO BID Qty: 60 0RF omeprazole 20 mg Tablet,Delayed Release (Dr/Ec) 20 mg PO QAM Qty: 30 0RF Rx Instructions: TAKE THIS MEDICATION ONCE DAILY ONE HOUR BEFORE FIRST MEAL OF THE DAY denosumab 120 mg/1.7 mL (70 mg/mL) solution 120 mg SQ .As directed Qty: 1.7 0RF Discontinued aspirin [Jayson Low Dose Aspirin] 81 mg Tablet,Delayed Release (Dr/Ec) 81 mg PO QAM Discharge Orders: Discharge Order (Routine); Ordered 07/26/22 Ordered By: Alia Church Admission Data Admit Date/Time: 07/20/22 11:51 Attending Provider: Noel Bueno Admit Provider: Shayy Elena Primary Care Provider: Wu Hawkins Other Providers: Shayy Elena ; Derek Felton ; Devin Donis [facility] ; Alice Lanier I. ; Alia Church Other Interventions: Discharge Summary Assessment (RN) Last Done: 07/26/22 10:15
[2022-07-26 11:25] LABS: Eosinophils # (auto) 0.01 K/uL (0-0.50); Eosinophils % (auto) 0.2 %; Hematocrit (blood only) 28.3 % (34.1-44.9); Hemoglobin 9.6 g/dl (12.0-16.0); Immature Granulocytes # (auto) 0.05 K/uL (0.00-0.02); Immature Granulocytes % (auto) 1.2 %; Lymphocytes # (auto) 0.66 K/uL (1.2-3.4); Lymphocytes % (auto) 16.3 %; Mean Corpuscular Hemoglobin 33.4 pg (25.0-34.0); Mean Corpuscular Hgb Conc 33.9 g/dL (32.0-36.0); Mean Corpuscular Volume 98.6 fL (80.0-100.0); Mean Platelet Volume 11.6 fL (9.4-12.3); Monocytes # (auto) 0.49 K/uL (0.24-0.82); Monocytes % (auto) 12.1 %; Neutrophils # (auto) 2.84 K/uL (1.4-6.5); Neutrophils % (auto) 70.2 %; Platelet Count 99 K/uL (130-400); Platelet Estimate Decreased (Normal); Polychromasia 1+; RDW Coefficient of Variation 13.2 % (11.5-14.5); RDW Standard Deviation 47.1 fL (36.4-46.3); Red Blood Count 2.87 M/uL (3.93-5.22); White Blood Count 4.05 K/ul (4.8-10.8)
== END 2022-07-26 11:46 | DRG 481 ==
LOC: ED 08:26 → 3N 11:51 → SUATTDRO 11:51 → 3N 14:00